=== PATIENT | female | born 1940 | race Caucasian/White ===

== ENCOUNTER → 2020-08-13 13:45 | Outpatient (BNVA) | payer MEDICARE, OTHER, SELFPAY | PROVIDERS: PCP Internal Medicine Endocrinology, Diabetes & Metabolism; Referring Provider Internal Medicine Endocrinology, Diabetes & Metabolism; Visit Provider Internal Medicine Cardiovascular Disease | DX: I48.20 Chronic atrial fibrillation, unspecified (principal); I11.0 Hypertensive heart disease with heart failure; I50.30 Unspecified diastolic (congestive) heart failure; E11.9 Type 2 diabetes mellitus without complications; Z79.82 Long term (current) use of aspirin; Z79.84 Long term (current) use of oral hypoglycemic drugs; Z79.899 Other long term (current) drug therapy | CPT/HCPCS: Q3014 ==

== ENCOUNTER → 2021-02-12 13:30 | Outpatient (BNVA) | payer MEDICARE, OTHER, SELFPAY | PROVIDERS: PCP Internal Medicine Endocrinology, Diabetes & Metabolism; Visit Provider Internal Medicine Cardiovascular Disease | DX: I50.30 Unspecified diastolic (congestive) heart failure (principal); I48.20 Chronic atrial fibrillation, unspecified | CPT/HCPCS: Q3014 ==

== ENCOUNTER 2021-10-01 13:04 | Inpatient (IN) | payer MEDICARE, OTHER, SELFPAY ==
[2021-10-01] VITALS (17 sets, daily range): BP systolic 73–128; BP diastolic 32–106; PULSE 97–152; RESP 18–25; TEMP 36.4–37.3; O2SAT 88–100; BMI 33.0
--- NOTE | ~2021-10-01 | US_ITS ---
EXAMINATION: US ABDOMEN COMPLETE CLINICAL INFORMATION: Hepatosplenomegaly.. COMPARISON: None TECHNIQUE: Real-time imaging of the abdominal viscera. Color Doppler exam used. FINDINGS: Exam limited by body habitus and bowel gas. PANCREAS: Obscured by bowel gas ABDOMINAL AORTA: Obscured by bowel gas INFERIOR VENA CAVA: Obscured by bowel gas LIVER: Liver is not well visualized. No focal abnormality in the visualized portions of the liver. No intrahepatic bile duct dilatation. GALLBLADDER: There is echogenic material without posterior acoustic shadowing layering dependently in the gallbladder. May be sludge versus stones. No gallbladder wall thickening or pericholecystic fluid. Negative ultrasound Londono's sign. COMMON BILE DUCT: Nonvisualized. RIGHT KIDNEY: Not well seen. No gross evidence for hydronephrosis. The kidney measures 10.1 cm in maximum dimension. LEFT KIDNEY: Not well seen. No gross evidence of hydronephrosis. The kidney measures 10.1 cm in maximum dimension. SPLEEN: Normal. The spleen measures 11.6 cm in maximum dimension. FREE FLUID: None. US/US abdomen complete IMPRESSION: 1. Exam limited by body habitus and bowel gas. 2. Sludge versus small gallstones layering dependently in gallbladder. No gallbladder wall thickening or pericholecystic fluid. Negative ultrasound Londono's sign. 3. Liver was not well visualized. 4. Spleen of normal size measuring 11.6 cm.
--- NOTE | ~2021-10-01 | US_ITS ---
EXAMINATION: US VENOUS ULTRASOUND WITH DOPPLER LOWER EXTREMITY, BILATERAL CLINICAL INFORMATION: Swelling and edema COMPARISON: None TECHNIQUE: Ultrasound of the deep veins is performed from the hip to the calf with compression sonography and color and pulse Doppler assessment. Spectral analysis with color-flow imaging is performed. FINDINGS: RIGHT: There is normal venous compression and respiratory variation and augmented flow. The visualized common femoral vein, superficial femoral vein, profunda femoral vein, popliteal vein, and the trifurcation region shows no evidence of deep venous thrombosis. There is no significant popliteal fossa cyst. Examination is limited due to patient mobility and discomfort LEFT: There is normal venous compression and respiratory variation and augmented flow. The visualized common femoral vein, superficial femoral vein, profunda femoral vein, popliteal vein, and the trifurcation region shows no evidence of deep venous thrombosis. Small posterior fossa Mcgregor's cyst measuring 1.8 x 2.1 x 2.0 cm. Separation is limited due to patient inability discomfort. If the patient's symptoms persist, followup ultrasound in 5 days 7 days might be of value to exclude proximal propagation from a non-visualized calf vein. US/US venous duplex LE BI IMPRESSION: No DVT demonstrated in the bilateral lower extremities.
--- NOTE | ~2021-10-01 | US_ITS ---
EXAMINATION: BILATERAL NONVASCULAR LOWER EXTREMITY ULTRASOUND CLINICAL INFORMATION: Bilateral cellulitis, assess for abscess. COMPARISON: None TECHNIQUE: Ultrasound performed at the areas of cellulitis in the right calf and left distal thigh to calf. FINDINGS: There is soft tissue swelling in the areas of clinical concern without abscess formation. US/US extremity nonvascular IMPRESSION: Soft tissue swelling consistent with cellulitis. No abscess.
--- NOTE | ~2021-10-01 | XR_ITS ---
EXAMINATION: XR CHEST CLINICAL INFORMATION: SOB. COMPARISON: Chest 07/28/2018 TECHNIQUE: Frontal view of the chest was obtained. FINDINGS: The lungs are moderately expanded but clear of acute process. The heart size is enlarged with prominent bilateral parahilar vascular/interstitial markings. No pleural effusion seen. No gross bony abnormality. XR/XR chest 1V IMPRESSION: Increased bilateral parahilar markings likely interstitial edema or pneumonitis. Similar findings were seen on previous exam 07/28/2018
--- NOTE | ~2021-10-01 | NM_ITS ---
EXAMINATION: NM LUNG IMAGE PERFUSION CLINICAL INFORMATION: Shortness of breath. COMPARISON: Chest radiograph dated from 10/01/2021. TECHNIQUE: The patient received 4.0 mCi Tc-99m MAA intravenously and a 6-view perfusion study was performed. FINDINGS: No segmental perfusion defects are present. There is homogeneous distribution of activity bilaterally except for a focal anatomic perfusion defect in the lingula, most consistent with an enlarged cardiomediastinal silhouette as identified on prior radiograph. NM/NM pul perfusion IMPRESSION: Very low probability of pulmonary embolism.
--- NOTE | 2021-10-01 13:14 | ECG_ITS ---
Test Reason : TACHYCARDIA Blood Pressure : / mmHG Vent. Rate : 144 BPM Atrial Rate : 000 BPM P-R Int : 000 ms QRS Dur : 068 ms QT Int : 286 ms P-R-T Axes : 000 130 149 degrees QTc Int : 442 ms Atrial fibrillation with rapid ventricular response Left posterior fascicular block Possible Anterior infarct (cited on or before 01-OCT-2021) Abnormal ECG When compared with ECG of 28-JUL-2018 07:22, QRS axis Shifted right Serial changes of Anterior infarct Present Referred By: José Luis Gonzalez Electronically Signed By:ALEXANDRO WILCOX MD
--- NOTE | 2021-10-01 13:14 | ED.EXTPRO ---
HPI - Extremity Problem General Chief complaint: General Medical Stated complaint: AMS,DARYA LEG SWELLING,88%RA Time Seen by Provider: 10/01/21 13:14 Source: patient and EMS Mode of arrival: EMS Limitations: no limitations History of Present Illness HPI Narrative: Patient with history of heart failure with preserved ejection fraction, chronic atrial fibrillation, diabetes mellitus, hypertension for increased leg swelling for last 4 weeks. Patient's family member came home and noticed that she has a weeping bilateral lower extremity open wounds along with erythema of the legs which is going on for at least 4 weeks also noted that patient is slightly more short of breath was saturating 88% on arrival patient does have a chronic atrial fibrillation not on anticoagulation patient refused to take oral anticoagulation and rate is controlled with atenolol and she is on only aspirin followed by transportation economics teacher in our hospital. Patient denies any fever no chills no cough no increased shortness of breath Related Data Home Medications Medication Instructions Recorded Confirmed aspirin 81 mg tablet,delayed 81 mg PO DAILY 08/13/20 10/01/21 release (Adult Low Dose Aspirin) furosemide 20 mg tablet (Lasix) 20 mg PO DAILY 08/13/20 10/01/21 glyburide 5 mg tablet 5 mg PO DAILY 08/13/20 10/01/21 metformin 500 mg tablet 500 mg PO DAILY 08/13/20 10/01/21 atenolol 25 mg tablet 100 mg PO BID tab 02/12/21 10/01/21 Allergies Allergy/AdvReac Type Severity Reaction Status Date / Time acetaminophen [From VICODIN] Allergy Unknown UNKNOWN Verified 10/01/21 15:41 acyclovir [ACYCLOVIR] Allergy Unknown HALLUCINATI Verified 10/01/21 15:41 ONS adhesive tape Allergy Unknown ALL TAPE Verified 10/01/21 15:41 SKIN EROSION amlodipine [From NORVASC] Allergy Unknown PEADAL Verified 10/01/21 15:41 EDEMA fluconazole [From DIFLUCAN] Allergy Unknown RASH/SWELLI Verified 10/01/21 15:41 NG hydralazine [HYDRALAZINE] Allergy Unknown CONFUSION Verified 10/01/21 15:41 hydrochlorothiazide Allergy Unknown UNKNOWN Verified 10/01/21 15:41 [HYDROCHLOROTHIAZIDE] hydrocodone [From VICODIN] Allergy Unknown SWELLING/ED Verified 10/01/21 15:41 CARMINA Iodinated Contrast Media Allergy Unknown ON Verified 10/01/21 15:41 [Iodinated Contrast Media - GLUCOPHAGE IV Dye] lisinopril [LISINOPRIL] Allergy Unknown LEG CRAMPS Verified 10/01/21 15:41 losartan [From COZAAR] Allergy Unknown UNKNOWN Verified 10/01/21 15:41 meperidine [From DEMEROL] Allergy Unknown ITCHING/PRU Verified 10/01/21 15:41 RITIS oxycodone [From PERCOCET] Allergy Unknown HALLUCINAT Verified 10/01/21 15:41 IONS simvastatin [SIMVASTATIN] Allergy Unknown PAIN IN Verified 10/01/21 15:41 FEET+UP LEGS Tetanus Vaccines and Toxoid Allergy Unknown ARMS SWELL Verified 10/01/21 15:41 [Tetanus Vaccines & Toxoid] valsartan [VALSARTAN] Allergy Unknown RINGING IN Verified 10/01/21 15:41 EARS Adhesive Tape Allergy Unknown Unknown Uncoded 10/01/21 15:41 IVP dye Allergy Unknown Unknown Uncoded 10/01/21 15:41 Tetanus Allergy Unknown Unknown Uncoded 10/01/21 15:41 Vicodin Allergy Unknown Unknown Uncoded 10/01/21 15:41 Review of Systems Review of Systems: Yes all other systems are reviewed and are negative [facility] Past Medical History Medical History (HFpEF) heart failure with preserved ejection fraction Chronic atrial fibrillation Diabetes mellitus HTN (hypertension) Family History Family History Father No problems noted. Mother CVD (cardiovascular disease) Social History Social History Alcohol intake: never Smoked in Last 30 Days: No Use of substances other than those prescribed or required for medical reasons: No Advance Directives: No Advance Directives Information Provided: Yes Physical Exam Vital Signs: Vital Signs: Last Vital Signs Temp 99.0 F 10/01/21 21:26 Pulse 97 10/01/21 21:26 Resp 18 10/01/21 21:26 BP 96/43 L 10/01/21 21:26 Pulse Ox 97 10/01/21 21:26 Oxygen Flow Rate 4 10/01/21 13:30 BMI result Body Mass Index 33.0 Appearance: Alert. Oriented X3. No acute distress. Lethargic Eyes: PERRLA, No Nystagmus ENT: Pharynx normal. Oral Mucosa moist Neck: Normal inspection. Neck supple. CVS: Irregularly irregular heart rate tachycardia, Pulses normal. Respiratory: No respiratory distress. Equal air entry bilateral, no wheezing/rales/rhonchi Abdomen: Soft and nontender. Bowel sounds are present, no mass palpable, no CVA tenderness Skin: Skin warm and dry. Normal skin turgor. Erythema of lower extremity below-knee Extremities: Bilateral leg edema with erythema with open wound on the lateral aspect with serous discharge Neuro: Oriented X 3. No motor deficit. No sensory deficit.No cerebellar signs , cranial nerves II-XII intact Course Reevaluation(s) Reevaluation #1: Patient with atrial fibrillation initial blood pressure reading was 77/60 repeat blood pressure reading was 10/23/2074 low blood pressure reading is likely from atrial fibrillation tachycardia is not from sepsis, patient is afebrile with atrial fibrillation with hyperglycemia and hypoperfusion will give IV fluid cautiously IV Cardizem for tachycardia in lower doses start IV Rocephin for cellulitis lower extremity wait for the labs, check POC Time: 13:58 Reevaluation #2: Lab workup showed blood sugar of 646 will give subQ Humalog according to patient was not compliant to her diet during Olga Lidia time takes only metformin will give Humalog lab also shows achy IV creatinine increased to 1.79 with potassium of 5.5 bicarb of 15 and anion gap of 19. Will give 2 L of IV fluid continue Humalog subQ was given Cardizem IV Time: 14:30 Reevaluation #3: Patient's heart rate is less than 100 AFib blood pressure improved to 107/90 patient is more alert and awake received 3 doses of Humalog and Lantus was given, lactic acid slightly elevated 2.8 multifactorial secondary to PARKER along with patient is on metformin also has cellulitis of lower extremity will add vancomycin to cover MRSA also will get venous Doppler to rule out DVT Time: 19:19 MDM - Extremity (Nontraumatic) MDM Narrative Medical decision making narrative: Patient venous Doppler negative for DVT plan to admit for bilateral leg cellulitis with atrial fibrillation with uncontrolled ventricular rate with diabetes mellitus with hyperglycemia with acute renal failure Lab Data Attestation: I reviewed the patient's lab results. Result diagrams: 10/01/21 14:15 10/01/21 20:14 Labs: Lab Results 10/01/21 10/01/21 10/01/21 Range/Units 13:50 14:15 14:15 WBC 19.0 H (4.8-10.8) X10*3/uL RBC 4.62 (4.20-5.50) X10*6/uL Hgb 16.8 H (12.0-16.0) g/dl Hct 48.8 H (37.0-47.0) % MCV 105.6 H (80.0-98.0) fL MCH 36.4 H (27.0-33.0) pg MCHC 34.4 (31.0-35.0) g/dl RDW 13.1 (11.0-16.0) % Plt Count 111 L (160-400) X10*3/uL MPV 12.0 (9.4-12.3) fL Immature Gran % (Auto) 0.8 H (0.0-0.4) % Neut % (Auto) 88.6 H (45-73) % Lymph % (Auto) 3.1 L (20-40) % [place] % (Auto) 7.4 (2-11) % Eos % (Auto) 0.0 (0-4) % Baso % (Auto) 0.1 (0-2) % Lymph # (Auto) 0.6 L (1.2-4.9) X10*3/uL [place] # (Auto) 1.4 H (0.1-1.2) X10*3/uL Eos # (Auto) 0.0 (0.0-0.4) X10*3/uL Baso # (Auto) 0.0 (0.0-0.2) X10*3/uL Abs Immat Gran (auto) 0.15 H (0.00-0.03) X10*3/uL Absolute Neuts (auto) 16.8 H (2.0-8.3) x10*3/uL Absolute Nucleated RBC 0.020 H (0.0-0.012) X10*3/uL Nucleated RBC % (auto) 0.1 (0.0-0.2) /100WBC PT (9.9-13.0) SEC INR (0.9-1.1) APTT (24.1-38.0) SEC Sodium 131 L (135-145) mmol/L Potassium 5.5 H (3.3-5.1) mmol/L Chloride 103 (96-108) mmol/L Carbon Dioxide 15 L (22-29) mmol/L Anion Gap 19 (12-20) BUN 51 H (9-16) mg/dL Creatinine 1.79 H (0.5-1.4) mg/dL Estim Creat Clear Calc 27.3 Estimated GFR 27 POC Glucose (60-115) mg/dL Random Glucose 646 H* (60-115) mg/dL Lactic Acid (0.5-2.0) mmol/L Lactic Acid F/U @ 2Hr (0.5-2.0) mmol/L Calcium 9.9 (8.4-10.2) mg/dL Magnesium 2.1 (1.6-2.6) mg/dL Total Bilirubin 2.0 H (0.0-1.0) mg/dL AST 26 (5-31) U/L ALT 59 H (0-31) U/L Alkaline Phosphatase 63 (39-117) U/L Troponin I High Sens (<3.5-17.0) ng/L B-Natriuretic Peptide (<100) pg/mL Total Protein 5.7 L (6.5-8.0) g/dL Albumin 3.5 (3.5-5.0) g/dL Urine Color Urine Appearance Urine pH (5.0-8.0) Ur Specific [place] (1.005-1.025) Urine Protein (NEG-TRACE) MG/DL Urine Glucose (UA) (NEG) MG/DL Urine Ketones (NEG) MG/DL Urine Blood (NEG) Urine Nitrite (NEG) Ur Leukocyte Esterase (NEG) Urine RBC (0) /HPF Urine WBC (0-4) /HPF Ur Squamous Epith Cells /LPF Urine Bacteria /LPF Acetone, Qual Small H (Negative) COVID-19 (JOSEPH) Negative (Negative) COVID-19 Clin Com See Note 10/01/21 10/01/21 10/01/21 Range/Units 14:15 14:15 14:15 WBC (4.8-10.8) X10*3/uL RBC (4.20-5.50) X10*6/uL Hgb (12.0-16.0) g/dl Hct (37.0-47.0) % MCV (80.0-98.0) fL MCH (27.0-33.0) pg MCHC (31.0-35.0) g/dl RDW (11.0-16.0) % Plt Count (160-400) X10*3/uL MPV (9.4-12.3) fL Immature Gran % (Auto) (0.0-0.4) % Neut % (Auto) (45-73) % Lymph % (Auto) (20-40) % [place] % (Auto) (2-11) % Eos % (Auto) (0-4) % Baso % (Auto) (0-2) % Lymph # (Auto) (1.2-4.9) X10*3/uL [place] # (Auto) (0.1-1.2) X10*3/uL Eos # (Auto) (0.0-0.4) X10*3/uL Baso # (Auto) (0.0-0.2) X10*3/uL Abs Immat Gran (auto) (0.00-0.03) X10*3/uL Absolute Neuts (auto) (2.0-8.3) x10*3/uL Absolute Nucleated RBC (0.0-0.012) X10*3/uL Nucleated RBC % (auto) (0.0-0.2) /100WBC PT 19.4 H (9.9-13.0) SEC INR 1.7 H (0.9-1.1) APTT 30.5 (24.1-38.0) SEC Sodium (135-145) mmol/L Potassium (3.3-5.1) mmol/L Chloride (96-108) mmol/L Carbon Dioxide (22-29) mmol/L Anion Gap (12-20) BUN (9-16) mg/dL Creatinine (0.5-1.4) mg/dL Estim Creat Clear Calc Estimated GFR POC Glucose (60-115) mg/dL Random Glucose (60-115) mg/dL Lactic Acid 2.8 H* (0.5-2.0) mmol/L Lactic Acid F/U @ 2Hr (0.5-2.0) mmol/L Calcium (8.4-10.2) mg/dL Magnesium (1.6-2.6) mg/dL Total Bilirubin (0.0-1.0) mg/dL AST (5-31) U/L ALT (0-31) U/L Alkaline Phosphatase (39-117) U/L Troponin I High Sens 23.1 H (<3.5-17.0) ng/L B-Natriuretic Peptide 1193 H (<100) pg/mL Total Protein (6.5-8.0) g/dL Albumin (3.5-5.0) g/dL Urine Color Urine Appearance Urine pH (5.0-8.0) Ur Specific [place] (1.005-1.025) Urine Protein (NEG-TRACE) MG/DL Urine Glucose (UA) (NEG) MG/DL Urine Ketones (NEG) MG/DL Urine Blood (NEG) Urine Nitrite (NEG) Ur Leukocyte Esterase (NEG) Urine RBC (0) /HPF Urine WBC (0-4) /HPF Ur Squamous Epith Cells /LPF Urine Bacteria /LPF Acetone, Qual (Negative) COVID-19 (JOSEPH) (Negative) COVID-19 Clin Com 10/01/21 10/01/21 10/01/21 Range/Units 14:24 15:44 17:06 WBC (4.8-10.8) X10*3/uL RBC (4.20-5.50) X10*6/uL Hgb (12.0-16.0) g/dl Hct (37.0-47.0) % MCV (80.0-98.0) fL MCH (27.0-33.0) pg MCHC (31.0-35.0) g/dl RDW (11.0-16.0) % Plt Count (160-400) X10*3/uL MPV (9.4-12.3) fL Immature Gran % (Auto) (0.0-0.4) % Neut % (Auto) (45-73) % Lymph % (Auto) (20-40) % [place] % (Auto) (2-11) % Eos % (Auto) (0-4) % Baso % (Auto) (0-2) % Lymph # (Auto) (1.2-4.9) X10*3/uL [place] # (Auto) (0.1-1.2) X10*3/uL Eos # (Auto) (0.0-0.4) X10*3/uL Baso # (Auto) (0.0-0.2) X10*3/uL Abs Immat Gran (auto) (0.00-0.03) X10*3/uL Absolute Neuts (auto) (2.0-8.3) x10*3/uL Absolute Nucleated RBC (0.0-0.012) X10*3/uL Nucleated RBC % (auto) (0.0-0.2) /100WBC PT (9.9-13.0) SEC INR (0.9-1.1) APTT (24.1-38.0) SEC Sodium (135-145) mmol/L Potassium (3.3-5.1) mmol/L Chloride (96-108) mmol/L Carbon Dioxide (22-29) mmol/L Anion Gap (12-20) BUN (9-16) mg/dL Creatinine (0.5-1.4) mg/dL Estim Creat Clear Calc Estimated GFR POC Glucose 566 H* 550 H* 502 H* (60-115) mg/dL Random Glucose (60-115) mg/dL Lactic Acid (0.5-2.0) mmol/L Lactic Acid F/U @ 2Hr (0.5-2.0) mmol/L Calcium (8.4-10.2) mg/dL Magnesium (1.6-2.6) mg/dL Total Bilirubin (0.0-1.0) mg/dL AST (5-31) U/L ALT (0-31) U/L Alkaline Phosphatase (39-117) U/L Troponin I High Sens (<3.5-17.0) ng/L B-Natriuretic Peptide (<100) pg/mL Total Protein (6.5-8.0) g/dL Albumin (3.5-5.0) g/dL Urine Color Urine Appearance Urine pH (5.0-8.0) Ur Specific [place] (1.005-1.025) Urine Protein (NEG-TRACE) MG/DL Urine Glucose (UA) (NEG) MG/DL Urine Ketones (NEG) MG/DL Urine Blood (NEG) Urine Nitrite (NEG) Ur Leukocyte Esterase (NEG) Urine RBC (0) /HPF Urine WBC (0-4) /HPF Ur Squamous Epith Cells /LPF Urine Bacteria /LPF Acetone, Qual (Negative) COVID-19 (JOSEPH) (Negative) COVID-19 Clin Com 10/01/21 10/01/21 10/01/21 Range/Units 17:53 18:11 20:14 WBC (4.8-10.8) X10*3/uL RBC (4.20-5.50) X10*6/uL Hgb (12.0-16.0) g/dl Hct (37.0-47.0) % MCV (80.0-98.0) fL MCH (27.0-33.0) pg MCHC (31.0-35.0) g/dl RDW (11.0-16.0) % Plt Count (160-400) X10*3/uL MPV (9.4-12.3) fL Immature Gran % (Auto) (0.0-0.4) % Neut % (Auto) (45-73) % Lymph % (Auto) (20-40) % [place] % (Auto) (2-11) % Eos % (Auto) (0-4) % Baso % (Auto) (0-2) % Lymph # (Auto) (1.2-4.9) X10*3/uL [place] # (Auto) (0.1-1.2) X10*3/uL Eos # (Auto) (0.0-0.4) X10*3/uL Baso # (Auto) (0.0-0.2) X10*3/uL Abs Immat Gran (auto) (0.00-0.03) X10*3/uL Absolute Neuts (auto) (2.0-8.3) x10*3/uL Absolute Nucleated RBC (0.0-0.012) X10*3/uL Nucleated RBC % (auto) (0.0-0.2) /100WBC PT (9.9-13.0) SEC INR (0.9-1.1) APTT (24.1-38.0) SEC Sodium (135-145) mmol/L Potassium (3.3-5.1) mmol/L Chloride (96-108) mmol/L Carbon Dioxide (22-29) mmol/L Anion Gap (12-20) BUN (9-16) mg/dL Creatinine (0.5-1.4) mg/dL Estim Creat Clear Calc Estimated GFR POC Glucose 414 H* (60-115) mg/dL Random Glucose (60-115) mg/dL Lactic Acid (0.5-2.0) mmol/L Lactic Acid F/U @ 2Hr 4.6 H* (0.5-2.0) mmol/L Calcium (8.4-10.2) mg/dL Magnesium (1.6-2.6) mg/dL Total Bilirubin (0.0-1.0) mg/dL AST (5-31) U/L ALT (0-31) U/L Alkaline Phosphatase (39-117) U/L Troponin I High Sens (<3.5-17.0) ng/L B-Natriuretic Peptide (<100) pg/mL Total Protein (6.5-8.0) g/dL Albumin (3.5-5.0) g/dL Urine Color YELLOW Urine Appearance CLEAR Urine pH 5.5 (5.0-8.0) Ur Specific [place] 1.020 (1.005-1.025) Urine Protein NEG (NEG-TRACE) MG/DL Urine Glucose (UA) >=1000 H (NEG) MG/DL Urine Ketones NEG (NEG) MG/DL Urine Blood TRACE (NEG) Urine Nitrite NEG (NEG) Ur Leukocyte Esterase NEG (NEG) Urine RBC 0-2 (0) /HPF Urine WBC 0-2 (0-4) /HPF Ur Squamous Epith Cells TRACE /LPF Urine Bacteria NONE /LPF Acetone, Qual (Negative) COVID-19 (JOSEPH) (Negative) COVID-19 Clin Com 10/01/21 10/01/21 10/01/21 Range/Units 20:14 20:14 21:26 WBC (4.8-10.8) X10*3/uL RBC (4.20-5.50) X10*6/uL Hgb (12.0-16.0) g/dl Hct (37.0-47.0) % MCV (80.0-98.0) fL MCH (27.0-33.0) pg MCHC (31.0-35.0) g/dl RDW (11.0-16.0) % Plt Count (160-400) X10*3/uL MPV (9.4-12.3) fL Immature Gran % (Auto) (0.0-0.4) % Neut % (Auto) (45-73) % Lymph % (Auto) (20-40) % [place] % (Auto) (2-11) % Eos % (Auto) (0-4) % Baso % (Auto) (0-2) % Lymph # (Auto) (1.2-4.9) X10*3/uL [place] # (Auto) (0.1-1.2) X10*3/uL Eos # (Auto) (0.0-0.4) X10*3/uL Baso # (Auto) (0.0-0.2) X10*3/uL Abs Immat Gran (auto) (0.00-0.03) X10*3/uL Absolute Neuts (auto) (2.0-8.3) x10*3/uL Absolute Nucleated RBC (0.0-0.012) X10*3/uL Nucleated RBC % (auto) (0.0-0.2) /100WBC PT (9.9-13.0) SEC INR (0.9-1.1) APTT (24.1-38.0) SEC Sodium 137 (135-145) mmol/L Potassium 5.0 (3.3-5.1) mmol/L Chloride 102 (96-108) mmol/L Carbon Dioxide 24 (22-29) mmol/L Anion Gap 16 (12-20) BUN 52 H (9-16) mg/dL Creatinine 1.80 H (0.5-1.4) mg/dL Estim Creat Clear Calc 27.2 Estimated GFR 27 POC Glucose 290 H (60-115) mg/dL Random Glucose 366 H* (60-115) mg/dL Lactic Acid Cancelled (0.5-2.0) mmol/L Lactic Acid F/U @ 2Hr (0.5-2.0) mmol/L Calcium 10.0 (8.4-10.2) mg/dL Magnesium (1.6-2.6) mg/dL Total Bilirubin (0.0-1.0) mg/dL AST (5-31) U/L ALT (0-31) U/L Alkaline Phosphatase (39-117) U/L Troponin I High Sens (<3.5-17.0) ng/L B-Natriuretic Peptide (<100) pg/mL Total Protein (6.5-8.0) g/dL Albumin (3.5-5.0) g/dL Urine Color Urine Appearance Urine pH (5.0-8.0) Ur Specific [place] (1.005-1.025) Urine Protein (NEG-TRACE) MG/DL Urine Glucose (UA) (NEG) MG/DL Urine Ketones (NEG) MG/DL Urine Blood (NEG) Urine Nitrite (NEG) Ur Leukocyte Esterase (NEG) Urine RBC (0) /HPF Urine WBC (0-4) /HPF Ur Squamous Epith Cells /LPF Urine Bacteria /LPF Acetone, Qual (Negative) COVID-19 (JOSEPH) (Negative) COVID-19 Clin Com Critical Care Time Critical Care Time Critical Care Time: Yes Total Critical Care Time: 70 Attestation: I spent 70 minutes of critical care, with interventions, assessments, speaking to patient, consultants Discharge Plan Discharge Clinical Impression: Atrial fibrillation with rapid ventricular response, Bilateral lower leg cellulitis Hyperglycemia due to type 2 diabetes mellitus Qualifiers: Diabetes mellitus prison insulin use: without terminal gauger use Qualified Code(s): E11.65 - Type 2 diabetes mellitus with hyperglycemia Acute renal failure Qualifiers: Acute renal failure type: unspecified Qualified Code(s): N17.9 - Acute kidney failure, unspecified Patient Disposition: Admitted As Inpatient
[2021-10-01] MEDS: 0.9 % Sodium Chloride 1,000 ML 999 ML IV ×2 (13:45→18:07)
[2021-10-01 14:25] LABS: MANUAL DIFF FLAG NO
[2021-10-01 14:25] LABS: COVID-19 Test Negative (Negative)
[2021-10-01 14:28] LABS: Glucose, Whole Blood 566 mg/dL (60-115)
[2021-10-01 14:30] LABS: Basophils Percent Auto 0.1 % (0-2); Hematocrit 48.8 % (37.0-47.0); Hemoglobin 16.8 g/dl (12.0-16.0); Imm Gran Abs Auto 0.15 X10*3/uL (0.00-0.03); Imm Gran Pct Auto 0.8 % (0.0-0.4); Lymphocytes Absolute Auto 0.6 X10*3/uL (1.2-4.9); Lymphocytes Percent Auto 3.1 % (20-40); Mean Corpuscular HGB Conc 34.4 g/dl (31.0-35.0); Mean Corpuscular Hemoglobin 36.4 pg (27.0-33.0); Mean Corpuscular Volume 105.6 fL (80.0-98.0); Monocytes Absolute Auto 1.4 X10*3/uL (0.1-1.2); Monocytes Percent Auto 7.4 % (2-11); NRBC Pct Auto 0.1 /100WBC (0.0-0.2); Neutrophils Absolute Auto 16.8 x10*3/uL (2.0-8.3); Neutrophils Percent Auto 88.6 % (45-73); Platelet Count 111 X10*3/uL (160-400); Red Blood Count 4.62 X10*6/uL (4.20-5.50); Red Cell Distribution Width 13.1 % (11.0-16.0)
[2021-10-01 14:35] LABS: INTERNATIONAL NORM RATIO 1.7 (0.9-1.1); Prothrombin Time 19.4 SEC (9.9-13.0)
[2021-10-01] MEDS: dilTIAZem HCL 50 MG/10 ML VIAL 10 MG IVPUSH (14:35)
[2021-10-01 14:37] LABS: Partial Thromboplastin Time 30.5 SEC (24.1-38.0)
[2021-10-01 14:43] LABS: Lactic Acid 2.8 mmol/L (0.5-2.0)
[2021-10-01] MEDS: Insulin Lispro 100 UNIT/ML 3 ML VIAL 14 UNIT SUBCUT ×2 (14:45→18:07)
[2021-10-01] MEDS: cefTRIAXone sodium 1 GM in 0.9 % Sodium Chloride 50 ML IV (14:45)
[2021-10-01 14:46] LABS: B Type Natriuretic Peptide 1193 pg/mL (<100); Troponin-I High Sensitivity 23.1 ng/L (<3.5-17.0)
--- NOTE | 2021-10-01 14:51 | PC.NURSE ---
alert. sob at rest. pitting edema into lower abd. weaping red wounds shins to feet. feet elevated with pillows.
[2021-10-01 14:55] LABS: Alanine Aminotransferase 59 U/L (0-31); Albumin Level 3.5 g/dL (3.5-5.0); Alkaline Phosphatase 63 U/L (39-117); Anion Gap 19 (12-20); Aspartate Amino Transferase 26 U/L (5-31); Blood Urea Nitrogen 51 mg/dL (9-16); Calcium 9.9 mg/dL (8.4-10.2); Carbon Dioxide 15 mmol/L (22-29); Chloride 103 mmol/L (96-108); Creatinine Clr Calc Pharmacy 27.3; Estimated Glomerular Filt Rate 27; Glucose Random 646 mg/dL (60-115); Magnesium 2.1 mg/dL (1.6-2.6); Potassium 5.5 mmol/L (3.3-5.1); Sodium 131 mmol/L (135-145); Total Protein 5.7 g/dL (6.5-8.0)
[2021-10-01 15:47] LABS: Glucose, Whole Blood 550 mg/dL (60-115)
[2021-10-01 16:21] LABS: Reflex Lactate? Lactic Acid Added
--- NOTE | 2021-10-01 16:44 | PC.NURSE ---
updates to family. further updates to jose r, rosalia. [phone]
[2021-10-01 17:10] LABS: Glucose, Whole Blood 502 mg/dL (60-115)
[2021-10-01 17:18] LABS: Acetone, serum QL Small (Negative)
[2021-10-01 18:09] LABS: Appearance Urine CLEAR; Color Urine YELLOW; Glucose Urine UA >=1000 MG/DL (NEG); Leukocyte Esterase Urine NEG (NEG); Nitrite Urine NEG (NEG); PH 5.5 (5.0-8.0); UACC Culture Trigger NO; Urine Blood TRACE (NEG); Urine Ketones NEG (NEG); Urine Protein NEG (NEG-TRACE)
[2021-10-01 18:15] LABS: Glucose, Whole Blood 414 mg/dL (60-115)
[2021-10-01 19:32] LABS: RBC Urine 0-2 /HPF (0); Squamous Epithelial Cell Urine TRACE /LPF; WBC Urine 0-2 /HPF (0-4)
--- NOTE | 2021-10-01 19:42 | PHA.MEDREC ---
Pharmacy Consult ? Medication Reconciliation Pharmacy has completed the medication reconciliation.
[2021-10-01] MEDS: vancomycin HCL 1,000 MG in 0.9 % Sodium Chloride 250 ML 270 MG IV (19:49)
[2021-10-01] MEDS: Insulin Lispro 100 UNIT/ML 3 ML VIAL 10 UNIT SUBCUT (19:49)
[2021-10-01] MEDS: Insulin Glargine,Hum.rec.anlog 100 UNIT/ML 10 ML VIAL 20 UNIT SUBCUT (19:50)
--- NOTE | 2021-10-01 20:04 | PC.NURSE ---
Pt continues to be tachiardic and tachipnic while at rest in bed. tolerated ultrasound but is unable to put HOB below 45%. removed O2. remains in a fib on monitor. awaits admission. had water and sml episode of couging per tech. states she drinks milk at home but is not prescribed special diet.
[2021-10-01 20:48] LABS: Anion Gap 16 (12-20); Blood Urea Nitrogen 52 mg/dL (9-16); Carbon Dioxide 24 mmol/L (22-29); Chloride 102 mmol/L (96-108); Creatinine Clr Calc Pharmacy 27.2; Estimated Glomerular Filt Rate 27; Glucose Random 366 mg/dL (60-115); Sodium 137 mmol/L (135-145)
[2021-10-01 20:49] LABS: ~Lactic Acid-LAB USE ONLY 4.6 mmol/L (0.5-2.0)
--- NOTE | 2021-10-01 20:50 | PC.NURSE ---
this rn received critical glucose and lactic from lab, made anwer aware.
--- NOTE | 2021-10-01 21:17 | PC.NURSE ---
this rn verified with dr escalante that this rn should medicated with 5mg metoprolol IV as this rn expressed concerned d/t low bps and afib maintained in 110s. ava instructs this rn to medicate as per orders.
[2021-10-01] MEDS: Metoprolol Tartrate 5 MG/5 ML VIAL IVPUSH (21:18)
[2021-10-01 21:32] LABS: Glucose, Whole Blood 290 mg/dL (60-115)
[2021-10-01 22:17] LABS: Reflex Lactate? 2 Y
--- NOTE | 2021-10-01 22:40 | PM.IMHP ---
History of Present Illness Date of Service: 10/01/21 Chief Complaint: Bilateral legs pain and swelling 81-year-old female with a past medical history of hypertension, diabetes, diastolic CHF, chronic AFib-not on anticoagulation, chronic lymphedema; presented to the hospital today with a chief complaint of bilateral leg swelling and pain. Patient reports that she has has been noticing increased pain and swelling in her legs for the past few weeks; also complains of shortness of breath and dyspnea on exertion. Denies any cough or fevers. Mentioned that she takes Lasix at home. Denies any nausea vomiting or diarrhea. Patient reports that she has been not compliant with her low-salt diet at home. Denies any chest pain or palpitations. Denies any numbness tingling or focal weakness. Denies any falls. Denies any urinary symptoms. Review of all other systems is negative except mentioned above ER course: Per ER team patient noted to have bilateral leg swelling concerning for cellulitis-given IV antibiotics; patient also noted to have atrial fibrillation with rapid ventricular response; given IV metoprolol. On labs patient had elevated fingerstick glucose but no evidence of DKA; received insulin. Mild hyperkalemia-improved; patient also noted to have renal insufficiency with creatinine of 1.7. Also noted elevated proBNP on given Lasix x1. Admitted for further management. [facility] Medical History (HFpEF) heart failure with preserved ejection fraction Chronic atrial fibrillation Diabetes mellitus HTN (hypertension) Family History Father No problems noted. Mother CVD (cardiovascular disease) Social History Alcohol intake: never Smoked in Last 30 Days: No Use of substances other than those prescribed or required for medical reasons: No Advance Directives: No Advance Directives Information Provided: Yes Meds Allergies Allergy/AdvReac Type Severity Reaction Status Date / Time acetaminophen [From VICODIN] Allergy Unknown UNKNOWN Verified 10/01/21 15:41 acyclovir [ACYCLOVIR] Allergy Unknown HALLUCINATI Verified 10/01/21 15:41 ONS adhesive tape Allergy Unknown ALL TAPE Verified 10/01/21 15:41 SKIN EROSION amlodipine [From NORVASC] Allergy Unknown PEADAL Verified 10/01/21 15:41 EDEMA fluconazole [From DIFLUCAN] Allergy Unknown RASH/SWELLI Verified 10/01/21 15:41 NG hydralazine [HYDRALAZINE] Allergy Unknown CONFUSION Verified 10/01/21 15:41 hydrochlorothiazide Allergy Unknown UNKNOWN Verified 10/01/21 15:41 [HYDROCHLOROTHIAZIDE] hydrocodone [From VICODIN] Allergy Unknown SWELLING/ED Verified 10/01/21 15:41 CARMINA Iodinated Contrast Media Allergy Unknown ON Verified 10/01/21 15:41 [Iodinated Contrast Media - GLUCOPHAGE IV Dye] lisinopril [LISINOPRIL] Allergy Unknown LEG CRAMPS Verified 10/01/21 15:41 losartan [From COZAAR] Allergy Unknown UNKNOWN Verified 10/01/21 15:41 meperidine [From DEMEROL] Allergy Unknown ITCHING/PRU Verified 10/01/21 15:41 RITIS oxycodone [From PERCOCET] Allergy Unknown HALLUCINAT Verified 10/01/21 15:41 IONS simvastatin [SIMVASTATIN] Allergy Unknown PAIN IN Verified 10/01/21 15:41 FEET+UP LEGS Tetanus Vaccines and Toxoid Allergy Unknown ARMS SWELL Verified 10/01/21 15:41 [Tetanus Vaccines & Toxoid] valsartan [VALSARTAN] Allergy Unknown RINGING IN Verified 10/01/21 15:41 EARS Adhesive Tape Allergy Unknown Unknown Uncoded 10/01/21 15:41 IVP dye Allergy Unknown Unknown Uncoded 10/01/21 15:41 Tetanus Allergy Unknown Unknown Uncoded 10/01/21 15:41 Vicodin Allergy Unknown Unknown Uncoded 10/01/21 15:41 Active Medications: Current Medications Aspirin (Aspirin Enteric Coated 81 Mg Tablet.Dr) 81 mg PO DAILY RONALDO Atenolol (Atenolol 100 Mg Tablet) 100 mg PO BID RONALDO; Protocol Dextrose (Dextrose 50 % 25 Gm/50 Ml Vial) 25 gm IVPUSH Q15M PRN; Protocol PRN Reason: per Hypoglycemia Standing Ord. Enoxaparin Sodium (Enoxaparin Sodium 40 Mg/0.4 Ml Syringe) 40 mg SUBCUT Q24H RONALDO Furosemide (Furosemide 20 Mg Tablet) 20 mg PO DAILY RONALDO; Protocol Glucose (Glucose Gel 15 Gm Gel..Gram.) 15 gm PO Q15M PRN; Protocol PRN Reason: per Hypoglycemia Standing Ord. Vancomycin HCl 1,000 mg/ (Sodium Chloride) 270 mls @ 270 mls/hr IV Q24H [facility] Cefepime HCl 1 gm/ Sodium (Chloride) 50 mls @ 100 mls/hr IV Q12H [facility] Sodium Chloride (Ns) 1,000 mls @ 50 mls/hr IVCONT .Q20H [facility] Sodium Chloride (Ns) 500 mls @ 500 mls/hr IV .Q1H [facility] Stop: 10/01/21 23:44 Insulin Glargine (Insulin Glargine,Hum.Rec.Anlog 100 Unit/Ml 10 Ml Vial) 10 unit SUBCUT BEDTIME RONALDO Insulin Human Lispro (Insulin Lispro 100 Unit/Ml 3 Ml Vial) 0 unit SUBCUT QIDACHS [facility]; Protocol Melatonin (Melatonin 3 Mg Tablet) 6 mg PO BEDTIME PRN PRN Reason: Insomnia Pharmacy Consult (Consult Rx Perform Med Rec) 1 each MISCELLANE ONCE PRN PRN Reason: Consult order Pharmacy Consult (Consult Rx Vancomycin Dosing) 1 each MISCELLANE DAILY PRN PRN Reason: Consult order Senna (Sennosides 8.6 Mg Tablet) 17.2 mg PO BEDTIME PRN PRN Reason: Constipation Sodium Chloride (0.9 % Sodium Chloride Flush 3 Ml Syringe) 3 ml IVFLUSH QSHIFT [facility] Home Medications Medication Instructions Recorded Confirmed Last Taken Type aspirin 81 mg tablet,delayed 81 mg PO DAILY 08/13/20 10/01/21 Unknown History release (Adult Low Dose Aspirin) furosemide 20 mg tablet (Lasix) 20 mg PO DAILY 08/13/20 10/01/21 Unknown History glyburide 5 mg tablet 5 mg PO DAILY 08/13/20 10/01/21 Unknown History metformin 500 mg tablet 500 mg PO DAILY 08/13/20 10/01/21 Unknown History atenolol 25 mg tablet 100 mg PO BID tab 02/12/21 10/01/21 Unknown History Physical Exam Vital Signs and Narrative: Vital Signs: Last Vital Signs Temp 99.0 F 10/01/21 21:26 Pulse 97 10/01/21 21:26 Resp 18 10/01/21 21:26 BP 96/43 L 10/01/21 21:26 Pulse Ox 97 10/01/21 21:26 Oxygen Flow Rate 4 10/01/21 13:30 BMI result Body Mass Index 33.0 Gen: Appears be in no acute distress HEENT: NCAT, Moist mucosa. Pulmonary: Bilateral crackles present CVS: Normal S1-S2 Abdomen: BS+, Soft, Nontender Extremities: Warm well perfused; bilateral legs are swollen, warm, tender, serosanguineous discharge noted Neuro: Alert and awake. Results Labs CBC and Chem 7: 10/02/21 03:33 10/02/21 03:33 Labs: Laboratory Results - last 24 hr 10/01/21 10/01/21 10/01/21 13:50 14:15 14:15 MCV 105.6 H MCH 36.4 H MCHC 34.4 RDW 13.1 Plt Count 111 L MPV 12.0 Immature Gran % (Auto) 0.8 H Neut % (Auto) 88.6 H Lymph % (Auto) 3.1 L [place] % (Auto) 7.4 Eos % (Auto) 0.0 Baso % (Auto) 0.1 Lymph # (Auto) 0.6 L [place] # (Auto) 1.4 H Eos # (Auto) 0.0 Baso # (Auto) 0.0 Abs Immat Gran (auto) 0.15 H Absolute Neuts (auto) 16.8 H Absolute Nucleated RBC 0.020 H Nucleated RBC % (auto) 0.1 PT INR APTT Anion Gap 19 Estim Creat Clear Calc 27.3 Estimated GFR 27 POC Glucose Random Glucose 646 H* Lactic Acid Lactic Acid F/U @ 2Hr Calcium 9.9 Magnesium 2.1 Total Bilirubin 2.0 H AST 26 ALT 59 H Alkaline Phosphatase 63 Troponin I High Sens B-Natriuretic Peptide Total Protein 5.7 L Albumin 3.5 Urine Color Urine Appearance Urine pH Ur Specific [place] Urine Protein Urine Glucose (UA) Urine Ketones Urine Blood Urine Nitrite Ur Leukocyte Esterase Urine RBC Urine WBC Ur Squamous Epith Cells Urine Bacteria Acetone, Qual Small H COVID-19 (JOSEPH) Negative COVID-19 Clin Com See Note 10/01/21 10/01/21 10/01/21 14:15 14:15 14:15 MCV MCH MCHC RDW Plt Count MPV Immature Gran % (Auto) Neut % (Auto) Lymph % (Auto) [place] % (Auto) Eos % (Auto) Baso % (Auto) Lymph # (Auto) [place] # (Auto) Eos # (Auto) Baso # (Auto) Abs Immat Gran (auto) Absolute Neuts (auto) Absolute Nucleated RBC Nucleated RBC % (auto) PT 19.4 H INR 1.7 H APTT 30.5 Anion Gap Estim Creat Clear Calc Estimated GFR POC Glucose Random Glucose Lactic Acid 2.8 H* Lactic Acid F/U @ 2Hr Calcium Magnesium Total Bilirubin AST ALT Alkaline Phosphatase Troponin I High Sens 23.1 H B-Natriuretic Peptide 1193 H Total Protein Albumin Urine Color Urine Appearance Urine pH Ur Specific [place] Urine Protein Urine Glucose (UA) Urine Ketones Urine Blood Urine Nitrite Ur Leukocyte Esterase Urine RBC Urine WBC Ur Squamous Epith Cells Urine Bacteria Acetone, Qual COVID-19 (JOSEPH) COVID-19 [employer] Com 10/01/21 10/01/21 10/01/21 14:24 15:44 17:06 MCV MCH MCHC RDW Plt Count MPV Immature Gran % (Auto) Neut % (Auto) Lymph % (Auto) [place] % (Auto) Eos % (Auto) Baso % (Auto) Lymph # (Auto) [place] # (Auto) Eos # (Auto) Baso # (Auto) Abs Immat Gran (auto) Absolute Neuts (auto) Absolute Nucleated RBC Nucleated RBC % (auto) PT INR APTT Anion Gap Estim Creat Clear Calc Estimated GFR POC Glucose 566 H* 550 H* 502 H* Random Glucose Lactic Acid Lactic Acid F/U @ 2Hr Calcium Magnesium Total Bilirubin AST ALT Alkaline Phosphatase Troponin I High Sens B-Natriuretic Peptide Total Protein Albumin Urine Color Urine Appearance Urine pH Ur Specific [place] Urine Protein Urine Glucose (UA) Urine Ketones Urine Blood Urine Nitrite Ur Leukocyte Esterase Urine RBC Urine WBC Ur Squamous Epith Cells Urine Bacteria Acetone, Qual COVID-19 (JOSEPH) COVID-19 [employer] 10/01/21 10/01/21 10/01/21 17:53 18:11 20:14 MCV MCH MCHC RDW Plt Count MPV Immature Gran % (Auto) Neut % (Auto) Lymph % (Auto) [place] % (Auto) Eos % (Auto) Baso % (Auto) Lymph # (Auto) [place] # (Auto) Eos # (Auto) Baso # (Auto) Abs Immat Gran (auto) Absolute Neuts (auto) Absolute Nucleated RBC Nucleated RBC % (auto) PT INR APTT Anion Gap Estim Creat Clear Calc Estimated GFR POC Glucose 414 H* Random Glucose Lactic Acid Lactic Acid F/U @ 2Hr 4.6 H* Calcium Magnesium Total Bilirubin AST ALT Alkaline Phosphatase Troponin I High Sens B-Natriuretic Peptide Total Protein Albumin Urine Color YELLOW Urine Appearance CLEAR Urine pH 5.5 Ur Specific [place] 1.020 Urine Protein NEG Urine Glucose (UA) >=1000 H Urine Ketones NEG Urine Blood TRACE Urine Nitrite NEG Ur Leukocyte Esterase NEG Urine RBC 0-2 Urine WBC 0-2 Ur Squamous Epith Cells TRACE Urine Bacteria NONE Acetone, Qual COVID-19 (JOSEPH) COVID-19 Clin Com 10/01/21 10/01/21 10/01/21 20:14 20:14 21:26 MCV MCH MCHC RDW Plt Count MPV Immature Gran % (Auto) Neut % (Auto) Lymph % (Auto) [place] % (Auto) Eos % (Auto) Baso % (Auto) Lymph # (Auto) [place] # (Auto) Eos # (Auto) Baso # (Auto) Abs Immat Gran (auto) Absolute Neuts (auto) Absolute Nucleated RBC Nucleated RBC % (auto) PT INR APTT Anion Gap 16 Estim Creat Clear Calc 27.2 Estimated GFR 27 POC Glucose 290 H Random Glucose 366 H* Lactic Acid Cancelled Lactic Acid F/U @ 2Hr Calcium 10.0 Magnesium Total Bilirubin AST ALT Alkaline Phosphatase Troponin I High Sens B-Natriuretic Peptide Total Protein Albumin Urine Color Urine Appearance Urine pH Ur Specific [place] Urine Protein Urine Glucose (UA) Urine Ketones Urine Blood Urine Nitrite Ur Leukocyte Esterase Urine RBC Urine WBC Ur Squamous Epith Cells Urine Bacteria Acetone, Qual COVID-19 (JOSEPH) COVID-19 Clin Com Imaging Radiologist's Impressions: Impressions Chest X-Ray 10/01/21 13:24 IMPRESSION: Increased bilateral parahilar markings likely interstitial edema or pneumonitis. Similar findings were seen on previous exam 07/28/2018 Venous Duplex 10/01/21 19:44 IMPRESSION: No DVT demonstrated in the bilateral lower extremities. Assessment and Plan (1) Atrial fibrillation with rapid ventricular response: Status: Acute (2) Hyperglycemia due to type 2 diabetes mellitus: Qualifiers: Diabetes mellitus termite technician insulin use: without termite technician use Qualified Code(s): E11.65 - Type 2 diabetes mellitus with hyperglycemia Status: Acute (3) Acute renal failure: Qualifiers: Acute renal failure type: unspecified Qualified Code(s): N17.9 - Acute kidney failure, unspecified Status: Acute (4) Bilateral lower leg cellulitis: Status: Acute (5) (HFpEF) heart failure with preserved ejection fraction: Status: Acute 81-year-old female with a past medical history of hypertension, diabetes, diastolic CHF, chronic AFib-not on anticoagulation, chronic lymphedema; presented to the hospital today with a chief complaint of bilateral leg swelling and pain. Noted to have following conditions AFib with rapid ventricular response: Patient heart rate on presentation is in 150s. Given IV metoprolol. Improving. Current heart rate is 97. Continue home mental all. Patient not on anticoagulation at home-patient refused. In Acute on chronic diastolic CHF: Noted to have congestion/pneumonitis on the chest x-ray. Patient has bilateral leg swelling. Also mentions dietary noncompliance. Noted Elevated proBNP. Received IV Lasix x1. Daily weights and I's and O's Echocardiogram Cardiology consult Patient has renal insufficiency-will resume diuresis based on renal function tomorrow morning. PARKER: Patient baseline creatinine is 1.1. On presentation creatinine is 1.7. Avoid nephrotoxins. Question cardiorenal. Patient received Lasix in the ER. Will continue to monitor renal function. Bilateral leg lymphedema/cellulitis: Patient on broad-spectrum antibiotics IV vancomycin and cefepime. Pharmacy to renally dose the antibiotics and home medications. Venous duplex negative for DVT. Will obtain nonvascular ultrasound to rule out abscess pockets ID consult Diabetes/hyperglycemia: Currently not in DKA. Patient mentions she has not been complaint with her diet over the holidays. DVT prophylaxis: Lovenox Code status: DNI/DNI Quality Stroke Does the patient have a stroke diagnosis?: No VTE Prior VTE?: No VTE Risk Level:: Medical - moderate - high VTE Device Contraindication: Treatment Not Indicated VTE Drug Contraindication: N/A - Med Ordered
--- NOTE | 2021-10-01 22:55 | PHA.PROG ---
Admission Date/Time: Indication: Weight in k kg Serum Creatinine - Last 168 Hours 10/01/21 10/01/21 14:15 20:14 Creatinine 1.79 H 1.80 H Estimated CrCl and GFR - Last 168 Hours 10/01/21 10/01/21 14:15 20:14 Estim Creat Clear Calc 27.3 27.2 Estimated GFR 27 27 Vancomycin Loading Dose: 1250 Current Vancomycin Dosing Regimen: 750 Vancomycin Monitoring using AUC goal of 400 - 600 range with trough as surrogate marker: 430 Date and Time for next Vancomycin Level to be drawn: 10/04 2099 Pharmacist Comments on Vancomycin Plan: Vancomycin dosing will take advantage of [employer] as a clinical decision support tool that uses Bayesian modeling to calculate individual patient's pharmacokinetic parameters and forecast the patient's drug concentration time course with the target goal AUC 24 range of 400 - 600 mg/L/hr.
[2021-10-01 23:15] LABS: ~Lactic Acid-LAB USE ONLY 4.8 mmol/L (0.5-2.0)
[2021-10-01] MEDS: 0.9 % Sodium Chloride 500 ML IV (23:33)
[2021-10-01] MEDS: cefEPime HCl 1 GM in 0.9 % Sodium Chloride 50 ML IV (23:33)
[2021-10-01] MEDS: 0.9 % Sodium Chloride 1,000 ML 50 ML IVCONT (23:54)
--- NOTE | 2021-10-01 23:57 | PC.NURSE ---
MD Cote called to be made aware of patient heart rate 150's, per MD orders give PRN Lopressor IV push, MD aware BP is 109/60. Per MD orders hold vanco dosing for tonight based on previous dose.
[2021-10-02] VITALS (23 sets, daily range): BP systolic 92–144; BP diastolic 39–85; PULSE 55–151; RESP 16–22; TEMP 36.5–37.3; O2SAT 92–99
[2021-10-02] MEDS: Metoprolol Tartrate 5 MG/5 ML VIAL IVPUSH ×2 (00:03→01:57)
[2021-10-02 00:18] LABS: Troponin-I High Sensitivity 63.7 ng/L (<3.5-17.0)
--- NOTE | 2021-10-02 01:53 | PC.NURSE ---
kristofer aware of vs
--- NOTE | 2021-10-02 01:54 | PC.NURSE ---
per mendy miner to give metoprolol iv despite q6h prn order
[2021-10-02] MEDS: 0.9 % Sodium Chloride 500 ML 250 ML IV (02:00)
--- NOTE | 2021-10-02 02:57 | PC.NURSE ---
this rn to bedside to medicate with metoprolol iv as documented/ordered, found pt had removed PIV from R hand. This rn attempted to place PIV for pt, unsuccessful dr bassett to bedside, attempted US PIV, successful pt medicated as charted. pt remains tachycardiac afib 150s, kristofer aware. pt repositioned in bed, inc care provided, legs dressed with nonadhesive dressings as legs were severely weeping
--- NOTE | 2021-10-02 03:04 | PC.NURSE ---
Dr Laguerre aware of pt's persistent tachycardiac, to order diltiazem 10mg push
[2021-10-02] MEDS: dilTIAZem HCL 50 MG/10 ML VIAL 10 MG IVPUSH (03:07)
--- NOTE | 2021-10-02 03:36 | PC.NURSE ---
Dr Laguerre made aware of pt's positive response to diltiazem push as evidenced by improved HR and BP. This RN to now medicated with overdue lovenox as lovenox just arrived to dept. Pt stretcher in low locked position, rails raised, call stewart within reach.
[2021-10-02] MEDS: Enoxaparin Sodium 40 MG/0.4 ML SYRINGE SUBCUT (03:38)
[2021-10-02 03:45] LABS: Basophils Percent Auto 0.1 % (0-2); Hematocrit 51.3 % (37.0-47.0); Hemoglobin 17.2 g/dl (12.0-16.0); Imm Gran Abs Auto 0.16 X10*3/uL (0.00-0.03); Imm Gran Pct Auto 0.9 % (0.0-0.4); Lymphocytes Absolute Auto 1.2 X10*3/uL (1.2-4.9); Lymphocytes Percent Auto 6.4 % (20-40); MANUAL DIFF FLAG SCAN; Mean Corpuscular HGB Conc 33.5 g/dl (31.0-35.0); Mean Corpuscular Hemoglobin 36.6 pg (27.0-33.0); Mean Corpuscular Volume 109.1 fL (80.0-98.0); Mean Platelet Volume 11.5 fL (9.4-12.3); Monocytes Absolute Auto 1.6 X10*3/uL (0.1-1.2); NRBC Pct Auto 0.1 /100WBC (0.0-0.2); Neutrophils Percent Auto 83.6 % (45-73); Platelet Count 118 X10*3/uL (160-400); Red Cell Distribution Width 13.1 % (11.0-16.0); SCAN SMEAR FLAG 1
[2021-10-02 03:55] LABS: Anion Gap 16 (12-20); Blood Urea Nitrogen 51 mg/dL (9-16); Carbon Dioxide 22 mmol/L (22-29); Chloride 104 mmol/L (96-108); Creatinine Clr Calc Pharmacy 31.5; Estimated Glomerular Filt Rate 32; Glucose Random 162 mg/dL (60-115); Potassium 4.9 mmol/L (3.3-5.1); Sodium 137 mmol/L (135-145)
[2021-10-02 03:56] LABS: SLIDE REVIEW VERIFIED
--- NOTE | 2021-10-02 08:33 | PC.NURSE ---
verbal order to give .25mg digoxin, maanual bp 98/55 hr 140-155. awake denies sob, no pain, dr rincon at bedside,
[2021-10-02 08:44] LABS: Troponin-I High Sensitivity 46.4 ng/L (<3.5-17.0)
--- NOTE | 2021-10-02 10:30 | PC.NURSE ---
almeida at bedside, states to hold lasix/asa at this time to give minedrin 10mg po, dr allison aware of the request
--- NOTE | 2021-10-02 10:32 | P.PNIM_ITS ---
Subjective Subjective Date of Service: 10/03/21 Interval History: Seen in f/u for septic shock, AFIB with RVR. Patient c/o pain in buttock area, BP is difficult to obtain but mentating, HR remains high despite IV meds including cardizem and dig. IVF been given for hypotension. She is on broad spec Abx for sepsis presumed to be from infected leg ulcers. Review of Systems no fever, c/o buttocks pain Physical Exam Vital Signs: Vital Signs: Last Vital Signs Temp 98.1 F 10/02/21 08:04 Pulse 145 H 10/02/21 10:24 Resp 22 H 10/02/21 10:24 BP 92/51 L 10/02/21 10:24 Pulse Ox 96 10/02/21 10:24 Oxygen Flow Rate 4 10/01/21 13:30 BMI result Body Mass Index 33.0 Const: Other: General: AO X 3, feels uncomfortable. Resp: CTA bilateral CVS: iregular iregule GI: +BS, NT, no distention Skin: extensive ulceraton Neuro: motor grossly Psych: appropriate affect Objective Data Active Medications Aspirin (Aspirin Enteric Coated 81 Mg Tablet.) 81 mg PO DAILY [facility] Dextrose (Dextrose 50 % 25 Gm/50 Ml Vial) 25 gm IVPUSH Q15M PRN; Protocol PRN Reason: per Hypoglycemia Standing Ord. Enoxaparin Sodium (Enoxaparin Sodium 40 Mg/0.4 Ml Syringe) 40 mg SUBCUT Q24H RONALDO Furosemide (Furosemide 20 Mg Tablet) 20 mg PO DAILY RONALDO; Protocol Glucose (Glucose Gel 15 Gm Gel..Gram.) 15 gm PO Q15M PRN; Protocol PRN Reason: per Hypoglycemia Standing Ord. Cefepime HCl 1 gm/ Sodium (Chloride) 50 mls @ 100 mls/hr IV Q12H [facility] Last Infusion: 10/02/21 00:06 Dose: 0 mls/hr Documented by: PORSCHE Sodium Chloride (Ns) 1,000 mls @ 50 mls/hr IVCONT .Q20H RONALDO Last Admin: 10/01/21 23:54 Dose: 50 mls/hr Documented by: PORSCHE Vancomycin HCl 750 mg/ Sodium (Chloride) 265 mls @ 265 mls/hr IV Q24H [facility] Insulin Glargine (Insulin Glargine,Hum.Rec.Anlog 100 Unit/Ml 10 Ml Vial) 10 unit SUBCUT BEDTIME [facility] Insulin Human Lispro (Insulin Lispro 100 Unit/Ml 3 Ml Vial) 0 unit SUBCUT Q IDACHS [facility]; Protocol Melatonin (Melatonin 3 Mg Tablet) 6 mg PO BEDTIME PRN PRN Reason: Insomnia Metoprolol Tartrate (Metoprolol Tartrate 5 Mg/5 Ml Vial) 5 mg IVPUSH Q6H PRN PRN Reason: HR>125 Last Admin: 10/02/21 01:57 Dose: 5 mg Documented by: HUY Pharmacy Consult (Consult Rx Perform Med Rec) 1 each MISCELLANE ONCE PRN PRN Reason: Consult order Pharmacy Consult (Consult Rx Vancomycin Dosing) 1 each MISCELLANE DAILY PRN PRN Reason: Consult order Senna (Sennosides 8.6 Mg Tablet) 17.2 mg PO BEDTIME PRN PRN Reason: Constipation Sodium Chloride (0.9 % Sodium Chloride Flush 3 Ml Syringe) 3 ml IVFLUSH QSHIFT [facility] Last Admin: 10/02/21 00:06 Dose: Not Given Documented by: PORSCHE Non-Admin Reason: IV Running Labs CBC & Chem 7: 10/03/21 06:47 10/03/21 06:47 Labs: Laboratory Results - last 24 hr 10/01/21 10/01/21 10/01/21 13:50 14:15 14:15 MCV 105.6 H MCH 36.4 H MCHC 34.4 RDW 13.1 Plt Count 111 L MPV 12.0 Immature Gran % (Auto) 0.8 H Neut % (Auto) 88.6 H Lymph % (Auto) 3.1 L Carver % (Auto) 7.4 Eos % (Auto) 0.0 Baso % (Auto) 0.1 Lymph # (Auto) 0.6 L Carver # (Auto) 1.4 H Eos # (Auto) 0.0 Baso # (Auto) 0.0 Abs Immat Gran (auto) 0.15 H Absolute Neuts (auto) 16.8 H Absolute Nucleated RBC 0.020 H Nucleated RBC % (auto) 0.1 Smear Tech's Comments PT INR APTT Anion Gap 19 Estim Creat Clear Calc 27.3 Estimated GFR 27 POC Glucose Random Glucose 646 H* Lactic Acid Lactic Acid F/U @ 2Hr Lactic Acid F/U @ 4Hr Calcium 9.9 Magnesium 2.1 Total Bilirubin 2.0 H AST 26 ALT 59 H Alkaline Phosphatase 63 Troponin I High Sens B-Natriuretic Peptide Total Protein 5.7 L Albumin 3.5 Urine Color Urine Appearance Urine pH Ur Specific Wadley Urine Protein Urine Glucose (UA) Urine Ketones Urine Blood Urine Nitrite Ur Leukocyte Esterase Urine RBC Urine WBC Ur Squamous Epith Cells Urine Bacteria Acetone, Qual Small H COVID-19 (JOSEPH) Negative COVID-19 Clin Com See Note 10/01/21 10/01/21 10/01/21 14:15 14:15 14:15 MCV MCH MCHC RDW Plt Count MPV Immature Gran % (Auto) Neut % (Auto) Lymph % (Auto) Carver % (Auto) Eos % (Auto) Baso % (Auto) Lymph # (Auto) Carver # (Auto) Eos # (Auto) Baso # (Auto) Abs Immat Gran (auto) Absolute Neuts (auto) Absolute Nucleated RBC Nucleated RBC % (auto) Smear Tech's Comments PT 19.4 H INR 1.7 H APTT 30.5 Anion Gap Estim Creat Clear Calc Estimated GFR POC Glucose Random Glucose Lactic Acid 2.8 H* Lactic Acid F/U @ 2Hr Lactic Acid F/U @ 4Hr Calcium Magnesium Total Bilirubin AST ALT Alkaline Phosphatase Troponin I High Sens 23.1 H B-Natriuretic Peptide 1193 H Total Protein Albumin Urine Color Urine Appearance Urine pH Ur Specific Wadley Urine Protein Urine Glucose (UA) Urine Ketones Urine Blood Urine Nitrite Ur Leukocyte Esterase Urine RBC Urine WBC Ur Squamous Epith Cells Urine Bacteria Acetone, Qual COVID-19 (JOSEPH) COVID-19 Clin Com 10/01/21 10/01/21 10/01/21 14:24 15:44 17:06 MCV MCH MCHC RDW Plt Count MPV Immature Gran % (Auto) Neut % (Auto) Lymph % (Auto) Carver % (Auto) Eos % (Auto) Baso % (Auto) Lymph # (Auto) Carver # (Auto) Eos # (Auto) Baso # (Auto) Abs Immat Gran (auto) Absolute Neuts (auto) Absolute Nucleated RBC Nucleated RBC % (auto) Smear Tech's Comments PT INR APTT Anion Gap Estim Creat Clear Calc Estimated GFR POC Glucose 566 H* 550 H* 502 H* Random Glucose Lactic Acid Lactic Acid F/U @ 2Hr Lactic Acid F/U @ 4Hr Calcium Magnesium Total Bilirubin AST ALT Alkaline Phosphatase Troponin I High Sens B-Natriuretic Peptide Total Protein Albumin Urine Color Urine Appearance Urine pH Ur Specific Wadley Urine Protein Urine Glucose (UA) Urine Ketones Urine Blood Urine Nitrite Ur Leukocyte Esterase Urine RBC Urine WBC Ur Squamous Epith Cells Urine Bacteria Acetone, Qual COVID-19 (JOSEPH) COVID-19 Clin Com 10/01/21 10/01/21 10/01/21 17:53 18:11 20:14 MCV MCH MCHC RDW Plt Count MPV Immature Gran % (Auto) Neut % (Auto) Lymph % (Auto) Carver % (Auto) Eos % (Auto) Baso % (Auto) Lymph # (Auto) Carver # (Auto) Eos # (Auto) Baso # (Auto) Abs Immat Gran (auto) Absolute Neuts (auto) Absolute Nucleated RBC Nucleated RBC % (auto) Smear Tech's Comments PT INR APTT Anion Gap Estim Creat Clear Calc Estimated GFR POC Glucose 414 H* Random Glucose Lactic Acid Lactic Acid F/U @ 2Hr 4.6 H* Lactic Acid F/U @ 4Hr Calcium Magnesium Total Bilirubin AST ALT Alkaline Phosphatase Troponin I High Sens B-Natriuretic Peptide Total Protein Albumin Urine Color YELLOW Urine Appearance CLEAR Urine pH 5.5 Ur Specific Wadley 1.020 Urine Protein NEG Urine Glucose (UA) >=1000 H Urine Ketones NEG Urine Blood TRACE Urine Nitrite NEG Ur Leukocyte Esterase NEG Urine RBC 0-2 Urine WBC 0-2 Ur Squamous Epith Cells TRACE Urine Bacteria NONE Acetone, Qual COVID-19 (JOSEPH) COVID-19 Clin Com 10/01/21 10/01/21 10/01/21 20:14 20:14 21:26 MCV MCH MCHC RDW Plt Count MPV Immature Gran % (Auto) Neut % (Auto) Lymph % (Auto) Carver % (Auto) Eos % (Auto) Baso % (Auto) Lymph # (Auto) Carver # (Auto) Eos # (Auto) Baso # (Auto) Abs Immat Gran (auto) Absolute Neuts (auto) Absolute Nucleated RBC Nucleated RBC % (auto) Smear Tech's Comments PT INR APTT Anion Gap 16 Estim Creat Clear Calc 27.2 Estimated GFR 27 POC Glucose 290 H Random Glucose 366 H* Lactic Acid Cancelled Lactic Acid F/U @ 2Hr Lactic Acid F/U @ 4Hr Calcium 10.0 Magnesium Total Bilirubin AST ALT Alkaline Phosphatase Troponin I High Sens B-Natriuretic Peptide Total Protein Albumin Urine Color Urine Appearance Urine pH Ur Specific Wadley Urine Protein Urine Glucose (UA) Urine Ketones Urine Blood Urine Nitrite Ur Leukocyte Esterase Urine RBC Urine WBC Ur Squamous Epith Cells Urine Bacteria Acetone, Qual COVID-19 (JOSEPH) COVID-19 [employer] Com 10/01/21 10/01/21 10/02/21 22:38 23:36 03:33 MCV 109.1 H MCH 36.6 H MCHC 33.5 RDW 13.1 Plt Count 118 L MPV 11.5 Immature Gran % (Auto) 0.9 H Neut % (Auto) 83.6 H Lymph % (Auto) 6.4 L Carver % (Auto) 9.0 Eos % (Auto) 0.0 Baso % (Auto) 0.1 Lymph # (Auto) 1.2 Carver # (Auto) 1.6 H Eos # (Auto) 0.0 Baso # (Auto) 0.0 Abs Immat Gran (auto) 0.16 H Absolute Neuts (auto) 15.0 H Absolute Nucleated RBC 0.020 H Nucleated RBC % (auto) 0.1 Smear Tech's Comments VERIFIED PT INR APTT Anion Gap Estim Creat Clear Calc Estimated GFR POC Glucose Random Glucose Lactic Acid Lactic Acid F/U @ 2Hr Lactic Acid F/U @ 4Hr 4.8 H* Calcium Magnesium Total Bilirubin AST ALT Alkaline Phosphatase Troponin I High Sens 63.7 H* D B-Natriuretic Peptide Total Protein Albumin Urine Color Urine Appearance Urine pH Ur Specific Wadley Urine Protein Urine Glucose (UA) Urine Ketones Urine Blood Urine Nitrite Ur Leukocyte Esterase Urine RBC Urine WBC Ur Squamous Epith Cells Urine Bacteria Acetone, Qual COVID-19 (JOSEPH) COVID-19 Clin Com 10/02/21 10/02/21 03:33 08:04 MCV MCH MCHC RDW Plt Count MPV Immature Gran % (Auto) Neut % (Auto) Lymph % (Auto) Carver % (Auto) Eos % (Auto) Baso % (Auto) Lymph # (Auto) Carver # (Auto) Eos # (Auto) Baso # (Auto) Abs Immat Gran (auto) Absolute Neuts (auto) Absolute Nucleated RBC Nucleated RBC % (auto) Smear Tech's Comments PT INR APTT Anion Gap 16 Estim Creat Clear Calc 31.5 Estimated GFR 32 POC Glucose Random Glucose 162 H Lactic Acid Lactic Acid F/U @ 2Hr Lactic Acid F/U @ 4Hr Calcium 10.0 Magnesium Total Bilirubin AST ALT Alkaline Phosphatase Troponin I High Sens 46.4 H B-Natriuretic Peptide Total Protein Albumin Urine Color Urine Appearance Urine pH Ur Specific Wadley Urine Protein Urine Glucose (UA) Urine Ketones Urine Blood Urine Nitrite Ur Leukocyte Esterase Urine RBC Urine WBC Ur Squamous Epith Cells Urine Bacteria Acetone, Qual COVID-19 (JOSEPH) COVID-19 Clin Com Assessment and Plan (1) Sepsis: Status: Acute (2) Low blood pressure: Status: Acute (3) Atrial fibrillation with rapid ventricular response: Status: Acute (4) Hyperglycemia due to type 2 diabetes mellitus: Status: Acute Assessment and Plan: 81-year-old female with a past medical history of hypertension, diabetes, diastolic CHF, chronic AFib-not on anticoagulation, chronic lymphedema; presented to the hospital today with a chief complaint of bilateral leg swelling and pain.? Noted to have following conditions Septic shock/severe sepsis likely from bilateral leg cellulitis -IVF to maintain BP -Will discuss with ICU -Mododrine -Broad speck Abx with Jatin and Chinyeren -ID consult pending -Nora, Autumn Johnson and Charley are all taking ICU transfers AFib with rapid ventricular response likely precipitated by Sepsis. -management challenge due to hypotension -Gave 0.5 of dig -avoiding Cardizem or BB until BP better, -has chronic AFIB unlikely to respond to cardioversion -Starting on Amio drip Acute on chronic diastolic CHF: clinically doesn't appear to be in failure, dc Lasix given low BP, cardiology to help with management PARKER: due to sepsis, will likely improve once sepsis is better.? Bilateral leg lymphedema/cellulitis:? Patient on broad-spectrum antibiotics IV vancomycin and cefepime.? Negative DVT Diabetes/hyperglycemia:??Insiluin DVT prophylaxis:? Lovenox Code status: DNI/DNI Quality Stroke Does the patient have a stroke diagnosis?: No VTE Prior VTE?: No VTE Risk Level:: Medical - moderate - high VTE Device Contraindication: Treatment Not Indicated VTE Drug Contraindication: N/A - Med Ordered
[2021-10-02] MEDS: Midodrine HCl 10 MG TABLET PO (10:50)
[2021-10-02] MEDS: 0.9 % Sodium Chloride Flush 3 ML SYRINGE IVFLUSH (10:54)
--- NOTE | 2021-10-02 11:11 | PM.CNCAR ---
History of Present Illness History of Present Illness Date of Service: 10/02/21 Requesting physician: Abilio [facility] Consult reason: atrial fibrillation Chief complaint: Low blood pressure, rapid atrial fibrillation, Narrative: I was consulted to see Debra in cardiology consultation today due to rapid ventricular response to atrial fibrillation with borderline blood pressure. Patient known to me with prior history of chronic atrial fibrillation for many years on rate control as patient refused to be on oral anticoagulation could not be cardioverted at any point in time. She also has heart failure with preserved ejection fraction chronic lymphedema, obesity, hypertension. She present hospital with progressive weakness, she started noticing shortness of breath and leg swelling about 2 weeks ago on . And then she got progressively weak. She said yesterday she could not get of the commode and valve weak and was advised by the has been to get up when she fell down and hit her face on the ground.. Subsequently EMS was called and she was brought to the emergency room. She was noted to be in atrial fibrillation rapid ventricular response. However she also was noted to have acute kidney injury and was given IV metoprolol as well as IV Cardizem. Subsequently blood pressure today are soft but remains in rapid atrial fibrillation. She is noted to have marked leukocytosis as well as lactic acid levels of 4.8. She is given some fluid bolus and is currently getting fluid bolus however chest x-ray and BNP findings consistent with CHF. She remains in atrial fibrillation with difficult control rate. Digoxin was given a 0.5 mg at 08:30 this morning with barely any response. Her blood pressure is noted be systolic 90. She is mentating in talking. She feels weak. She denies any palpitations. She does complain of some shortness of breath. Denies any chest pain or lightheadedness. Suspected sources cellulitis. She requires hemodynamic support, however there are no ICU beds here and calling couple of hospital by the primary hospitalist team there is no beds available. Review of Systems Constitutional: Constitutional: Denies chills, Denies fever(s), Reports lethargy and Reports weakness Eyes: Eyes: Reports no additional eye complaints ENT: Reports system reviewed and no additional complaints, except as documented Cardiovascular: Cardiovascular: Denies chest pain, Denies rapid heart rate, Denies lightheadedness, Denies Loss of Consciousness, Denies palpitations and Reports dyspnea Respiratory: Respiratory: Reports no additional respiratory complaints and Reports dyspnea Gastrointestinal: Gastrointestinal: Reports no additional gastrointestinal complaints Genitourinary: Genitourinary: Reports no additional female genitourinary complaints Musculoskeletal: Musculoskeletal: Reports no additional musculoskeletal complaints Integumentary/Breasts: Skin/Breast: Reports system reviewed and no additional complaints, except as docu Neurologic: Reports system reviewed and no additional complaints, except as documented and Reports weakness Psychiatric: Psychiatric: Reports no additional psychiatric complaints Endocrine: Endocrine: Reports no additional endocrine complaints and Denies palpitations PMFSH Past Medical History Medical History (HFpEF) heart failure with preserved ejection fraction Chronic atrial fibrillation Diabetes mellitus HTN (hypertension) Family History Family History Father No problems noted. Mother CVD (cardiovascular disease) Social History Social History Alcohol intake: never Smoked in Last 30 Days: No Use of substances other than those prescribed or required for medical reasons: No Advance Directives: No Advance Directives Information Provided: Yes Meds Allergies Allergy/AdvReac Type Severity Reaction Status Date / Time acetaminophen [From VICODIN] Allergy Unknown UNKNOWN Verified 10/01/21 15:41 acyclovir [ACYCLOVIR] Allergy Unknown HALLUCINATI Verified 10/01/21 15:41 ONS adhesive tape Allergy Unknown ALL TAPE Verified 10/01/21 15:41 SKIN EROSION amlodipine [From NORVASC] Allergy Unknown PEADAL Verified 10/01/21 15:41 EDEMA fluconazole [From DIFLUCAN] Allergy Unknown RASH/SWELLI Verified 10/01/21 15:41 NG hydralazine [HYDRALAZINE] Allergy Unknown CONFUSION Verified 10/01/21 15:41 hydrochlorothiazide Allergy Unknown UNKNOWN Verified 10/01/21 15:41 [HYDROCHLOROTHIAZIDE] hydrocodone [From VICODIN] Allergy Unknown SWELLING/ED Verified 10/01/21 15:41 CARMINA Iodinated Contrast Media Allergy Unknown ON Verified 10/01/21 15:41 [Iodinated Contrast Media - GLUCOPHAGE IV Dye] lisinopril [LISINOPRIL] Allergy Unknown LEG CRAMPS Verified 10/01/21 15:41 losartan [From COZAAR] Allergy Unknown UNKNOWN Verified 10/01/21 15:41 meperidine [From DEMEROL] Allergy Unknown ITCHING/PRU Verified 10/01/21 15:41 RITIS oxycodone [From PERCOCET] Allergy Unknown HALLUCINAT Verified 10/01/21 15:41 IONS simvastatin [SIMVASTATIN] Allergy Unknown PAIN IN Verified 10/01/21 15:41 FEET+UP LEGS Tetanus Vaccines and Toxoid Allergy Unknown ARMS SWELL Verified 10/01/21 15:41 [Tetanus Vaccines & Toxoid] valsartan [VALSARTAN] Allergy Unknown RINGING IN Verified 10/01/21 15:41 EARS Adhesive Tape Allergy Unknown Unknown Uncoded 10/01/21 15:41 IVP dye Allergy Unknown Unknown Uncoded 10/01/21 15:41 Tetanus Allergy Unknown Unknown Uncoded 10/01/21 15:41 Vicodin Allergy Unknown Unknown Uncoded 10/01/21 15:41 Active Medications: Current Medications Aspirin (Aspirin Enteric Coated 81 Mg Tablet.Dr) 81 mg PO DAILY [facility] Last Admin: 10/02/21 10:51 Dose: Not Given Documented by: Dextrose (Dextrose 50 % 25 Gm/50 Ml Vial) 25 gm IVPUSH Q15M PRN; Protocol PRN Reason: per Hypoglycemia Standing Ord. Enoxaparin Sodium (Enoxaparin Sodium 40 Mg/0.4 Ml Syringe) 40 mg SUBCUT Q24H RONALDO Furosemide (Furosemide 20 Mg Tablet) 20 mg PO DAILY [facility]; Protocol Last Admin: 10/02/21 10:51 Dose: Not Given Documented by: Glucose (Glucose Gel 15 Gm Gel..Gram.) 15 gm PO Q15M PRN; Protocol PRN Reason: per Hypoglycemia Standing Ord. Cefepime HCl 1 gm/ Sodium (Chloride) 50 mls @ 100 mls/hr IV Q12H [facility] Last Infusion: 10/02/21 00:06 Dose: Infused Documented by: Sodium Chloride (Ns) 1,000 mls @ 50 mls/hr IVCONT .Q20H [facility] Last Admin: 10/01/21 23:54 Dose: 50 mls/hr Documented by: Vancomycin HCl 750 mg/ Sodium (Chloride) 265 mls @ 265 mls/hr IV Q24H [facility] Insulin Glargine (Insulin Glargine,Hum.Rec.Anlog 100 Unit/Ml 10 Ml Vial) 10 unit SUBCUT BEDTIME [facility] Insulin Human Lispro (Insulin Lispro 100 Unit/Ml 3 Ml Vial) 0 unit SUBCUT QIDACHS [facility]; Protocol Melatonin (Melatonin 3 Mg Tablet) 6 mg PO BEDTIME PRN PRN Reason: Insomnia Metoprolol Tartrate (Metoprolol Tartrate 5 Mg/5 Ml Vial) 5 mg IVPUSH Q6H PRN PRN Reason: HR>125 Last Admin: 10/02/21 01:57 Dose: 5 mg Documented by: Pharmacy Consult (Consult Rx Perform Med Rec) 1 each MISCELLANE ONCE PRN PRN Reason: Consult order Pharmacy Consult (Consult Rx Vancomycin Dosing) 1 each MISCELLANE DAILY PRN PRN Reason: Consult order Senna (Sennosides 8.6 Mg Tablet) 17.2 mg PO BEDTIME PRN PRN Reason: Constipation Sodium Chloride (0.9 % Sodium Chloride Flush 3 Ml Syringe) 3 ml IVFLUSH [facility] Last Admin: 10/02/21 10:54 Dose: 3 ml Documented by: Home Medications Medication Instructions Recorded Confirmed Last Taken Type aspirin 81 mg tablet,delayed 81 mg PO DAILY 08/13/20 10/01/21 Unknown History release (Adult Low Dose Aspirin) furosemide 20 mg tablet (Lasix) 20 mg PO DAILY 08/13/20 10/01/21 Unknown History glyburide 5 mg tablet 5 mg PO DAILY 08/13/20 10/01/21 Unknown History metformin 500 mg tablet 500 mg PO DAILY 08/13/20 10/01/21 Unknown History atenolol 25 mg tablet 100 mg PO BID tab 02/12/21 10/01/21 Unknown History Physical Exam Vital Signs: Vital Signs: Last Vital Signs Temp 98.1 F 10/02/21 08:04 Pulse 145 H 10/02/21 10:24 Resp 22 H 10/02/21 10:24 BP 92/51 L 10/02/21 10:24 Pulse Ox 96 10/02/21 10:24 Oxygen Flow Rate 4 10/01/21 13:30 BMI result Body Mass Index 33.0 Const: General: cooperative, comfortable, alert, awake, ill appearing and tired appearing Nutritional Appearance: obese Orientation/consciousness: patient oriented x3 HENMT: Head: Yes normocephalic and Yes other (Abrasion on her forehead) Neck: Neck: Yes trachea midline and Yes JVD Chest: Chest palpation & inspection: normal inspection of the chest Resp: Effort & Inspection: no use of accessory muscles and other (Limited exam) Auscultation: clear to auscultation bilaterally (Anteriorly and laterally) Cardio: Jugular venous distension: JVD Rate: tachycardic Rhythm: abnormal rhythm irregularly irregular Heart sounds: S1 normal heart sound present, S2 normal heart sound present, no click, no gallops, no murmurs and no rubs GI: Auscultation: normal bowel sounds Skin: General skin exam: no rashes or lesions noted Neuro: General: patient oriented x3 and no focal motor deficits Extrem: General: No clubbing, No cyanosis and Yes edema (With cellulitic changes bilaterally) Psych: Appearance: grossly normal Objective Labs and Meds Result diagrams: 10/02/21 03:33 10/02/21 03:33 Lab results: Laboratory Results - last 24 hr 10/01/21 10/01/21 10/01/21 13:50 14:15 14:15 WBC 19.0 H RBC 4.62 Hgb 16.8 H Hct 48.8 H MCV 105.6 H MCH 36.4 H MCHC 34.4 RDW 13.1 Plt Count 111 L MPV 12.0 Immature Gran % (Auto) 0.8 H Neut % (Auto) 88.6 H Lymph % (Auto) 3.1 L [place] % (Auto) 7.4 Eos % (Auto) 0.0 Baso % (Auto) 0.1 Lymph # (Auto) 0.6 L [place] # (Auto) 1.4 H Eos # (Auto) 0.0 Baso # (Auto) 0.0 Abs Immat Gran (auto) 0.15 H Absolute Neuts (auto) 16.8 H Absolute Nucleated RBC 0.020 H Nucleated RBC % (auto) 0.1 Smear Tech's Comments PT INR APTT Sodium 131 L Potassium 5.5 H Chloride 103 Carbon Dioxide 15 L Anion Gap 19 BUN 51 H Creatinine 1.79 H Estim Creat Clear Calc 27.3 Estimated GFR 27 POC Glucose Random Glucose 646 H* Lactic Acid Lactic Acid F/U @ 2Hr Lactic Acid F/U @ 4Hr Calcium 9.9 Magnesium 2.1 Total Bilirubin 2.0 H AST 26 ALT 59 H Alkaline Phosphatase 63 Troponin I High Sens B-Natriuretic Peptide Total Protein 5.7 L Albumin 3.5 Urine Color Urine Appearance Urine pH Ur Specific [place] Urine Protein Urine Glucose (UA) Urine Ketones Urine Blood Urine Nitrite Ur Leukocyte Esterase Urine RBC Urine WBC Ur Squamous Epith Cells Urine Bacteria Acetone, Qual Small H COVID-19 (JOSEPH) Negative COVID-19 [employer] See Note 10/01/21 10/01/21 10/01/21 14:15 14:15 14:15 WBC RBC Hgb Hct MCV MCH MCHC RDW Plt Count MPV Immature Gran % (Auto) Neut % (Auto) Lymph % (Auto) [place] % (Auto) Eos % (Auto) Baso % (Auto) Lymph # (Auto) [place] # (Auto) Eos # (Auto) Baso # (Auto) Abs Immat Gran (auto) Absolute Neuts (auto) Absolute Nucleated RBC Nucleated RBC % (auto) Smear Tech's Comments PT 19.4 H INR 1.7 H APTT 30.5 Sodium Potassium Chloride Carbon Dioxide Anion Gap BUN Creatinine Estim Creat Clear Calc Estimated GFR POC Glucose Random Glucose Lactic Acid 2.8 H* Lactic Acid F/U @ 2Hr Lactic Acid F/U @ 4Hr Calcium Magnesium Total Bilirubin AST ALT Alkaline Phosphatase Troponin I High Sens 23.1 H B-Natriuretic Peptide 1193 H Total Protein Albumin Urine Color Urine Appearance Urine pH Ur Specific [place] Urine Protein Urine Glucose (UA) Urine Ketones Urine Blood Urine Nitrite Ur Leukocyte Esterase Urine RBC Urine WBC Ur Squamous Epith Cells Urine Bacteria Acetone, Qual COVID-19 (JOSEPH) COVID-19 [employer] 10/01/21 10/01/21 10/01/21 14:24 15:44 17:06 WBC RBC Hgb Hct MCV MCH MCHC RDW Plt Count MPV Immature Gran % (Auto) Neut % (Auto) Lymph % (Auto) [place] % (Auto) Eos % (Auto) Baso % (Auto) Lymph # (Auto) [place] # (Auto) Eos # (Auto) Baso # (Auto) Abs Immat Gran (auto) Absolute Neuts (auto) Absolute Nucleated RBC Nucleated RBC % (auto) Smear Tech's Comments PT INR APTT Sodium Potassium Chloride Carbon Dioxide Anion Gap BUN Creatinine Estim Creat Clear Calc Estimated GFR POC Glucose 566 H* 550 H* 502 H* Random Glucose Lactic Acid Lactic Acid F/U @ 2Hr Lactic Acid F/U @ 4Hr Calcium Magnesium Total Bilirubin AST ALT Alkaline Phosphatase Troponin I High Sens B-Natriuretic Peptide Total Protein Albumin Urine Color Urine Appearance Urine pH Ur Specific [place] Urine Protein Urine Glucose (UA) Urine Ketones Urine Blood Urine Nitrite Ur Leukocyte Esterase Urine RBC Urine WBC Ur Squamous Epith Cells Urine Bacteria Acetone, Qual COVID-19 (JOSEPH) COVID-19 [employer] 10/01/21 10/01/21 10/01/21 17:53 18:11 20:14 WBC RBC Hgb Hct MCV MCH MCHC RDW Plt Count MPV Immature Gran % (Auto) Neut % (Auto) Lymph % (Auto) [place] % (Auto) Eos % (Auto) Baso % (Auto) Lymph # (Auto) [place] # (Auto) Eos # (Auto) Baso # (Auto) Abs Immat Gran (auto) Absolute Neuts (auto) Absolute Nucleated RBC Nucleated RBC % (auto) Smear Tech's Comments PT INR APTT Sodium Potassium Chloride Carbon Dioxide Anion Gap BUN Creatinine Estim Creat Clear Calc Estimated GFR POC Glucose 414 H* Random Glucose Lactic Acid Lactic Acid F/U @ 2Hr 4.6 H* Lactic Acid F/U @ 4Hr Calcium Magnesium Total Bilirubin AST ALT Alkaline Phosphatase Troponin I High Sens B-Natriuretic Peptide Total Protein Albumin Urine Color YELLOW Urine Appearance CLEAR Urine pH 5.5 Ur Specific [place] 1.020 Urine Protein NEG Urine Glucose (UA) >=1000 H Urine Ketones NEG Urine Blood TRACE Urine Nitrite NEG Ur Leukocyte Esterase NEG Urine RBC 0-2 Urine WBC 0-2 Ur Squamous Epith Cells TRACE Urine Bacteria NONE Acetone, Qual COVID-19 (JOSEPH) COVID-19 [employer] 10/01/21 10/01/21 10/01/21 20:14 20:14 21:26 WBC RBC Hgb Hct MCV MCH MCHC RDW Plt Count MPV Immature Gran % (Auto) Neut % (Auto) Lymph % (Auto) [place] % (Auto) Eos % (Auto) Baso % (Auto) Lymph # (Auto) [place] # (Auto) Eos # (Auto) Baso # (Auto) Abs Immat Gran (auto) Absolute Neuts (auto) Absolute Nucleated RBC Nucleated RBC % (auto) Smear Tech's Comments PT INR APTT Sodium 137 Potassium 5.0 Chloride 102 Carbon Dioxide 24 Anion Gap 16 BUN 52 H Creatinine 1.80 H Estim Creat Clear Calc 27.2 Estimated GFR 27 POC Glucose 290 H Random Glucose 366 H* Lactic Acid Cancelled Lactic Acid F/U @ 2Hr Lactic Acid F/U @ 4Hr Calcium 10.0 Magnesium Total Bilirubin AST ALT Alkaline Phosphatase Troponin I High Sens B-Natriuretic Peptide Total Protein Albumin Urine Color Urine Appearance Urine pH Ur Specific [place] Urine Protein Urine Glucose (UA) Urine Ketones Urine Blood Urine Nitrite Ur Leukocyte Esterase Urine RBC Urine WBC Ur Squamous Epith Cells Urine Bacteria Acetone, Qual COVID-19 (JOSEPH) COVID-19 [employer] 10/01/21 10/01/21 10/02/21 22:38 23:36 03:33 WBC 18.0 H RBC 4.70 Hgb 17.2 H Hct 51.3 H MCV 109.1 H MCH 36.6 H MCHC 33.5 RDW 13.1 Plt Count 118 L MPV 11.5 Immature Gran % (Auto) 0.9 H Neut % (Auto) 83.6 H Lymph % (Auto) 6.4 L [place] % (Auto) 9.0 Eos % (Auto) 0.0 Baso % (Auto) 0.1 Lymph # (Auto) 1.2 [place] # (Auto) 1.6 H Eos # (Auto) 0.0 Baso # (Auto) 0.0 Abs Immat Gran (auto) 0.16 H Absolute Neuts (auto) 15.0 H Absolute Nucleated RBC 0.020 H Nucleated RBC % (auto) 0.1 Smear Tech's Comments VERIFIED PT INR APTT Sodium Potassium Chloride Carbon Dioxide Anion Gap BUN Creatinine Estim Creat Clear Calc Estimated GFR POC Glucose Random Glucose Lactic Acid Lactic Acid F/U @ 2Hr Lactic Acid F/U @ 4Hr 4.8 H* Calcium Magnesium Total Bilirubin AST ALT Alkaline Phosphatase Troponin I High Sens 63.7 H* D B-Natriuretic Peptide Total Protein Albumin Urine Color Urine Appearance Urine pH Ur Specific [place] Urine Protein Urine Glucose (UA) Urine Ketones Urine Blood Urine Nitrite Ur Leukocyte Esterase Urine RBC Urine WBC Ur Squamous Epith Cells Urine Bacteria Acetone, Qual COVID-19 (JOSEPH) COVID-19 [employer] 10/02/21 10/02/21 03:33 08:04 WBC RBC Hgb Hct MCV MCH MCHC RDW Plt Count MPV Immature Gran % (Auto) Neut % (Auto) Lymph % (Auto) [place] % (Auto) Eos % (Auto) Baso % (Auto) Lymph # (Auto) [place] # (Auto) Eos # (Auto) Baso # (Auto) Abs Immat Gran (auto) Absolute Neuts (auto) Absolute Nucleated RBC Nucleated RBC % (auto) Smear Tech's Comments PT INR APTT Sodium 137 Potassium 4.9 Chloride 104 Carbon Dioxide 22 Anion Gap 16 BUN 51 H Creatinine 1.55 H Estim Creat Clear Calc 31.5 Estimated GFR 32 POC Glucose Random Glucose 162 H Lactic Acid Lactic Acid F/U @ 2Hr Lactic Acid F/U @ 4Hr Calcium 10.0 Magnesium Total Bilirubin AST ALT Alkaline Phosphatase Troponin I High Sens 46.4 H B-Natriuretic Peptide Total Protein Albumin Urine Color Urine Appearance Urine pH Ur Specific [place] Urine Protein Urine Glucose (UA) Urine Ketones Urine Blood Urine Nitrite Ur Leukocyte Esterase Urine RBC Urine WBC Ur Squamous Epith Cells Urine Bacteria Acetone, Qual COVID-19 (JOSEPH) COVID-19 Clin Com Imaging Radiologist's impression: Impressions Chest X-Ray 10/01/21 13:24 IMPRESSION: Increased bilateral parahilar markings likely interstitial edema or pneumonitis. Similar findings were seen on previous exam 07/28/2018 Venous Duplex 10/01/21 19:44 IMPRESSION: No DVT demonstrated in the bilateral lower extremities. Extremity Ultrasound 10/02/21 08:33 IMPRESSION: Soft tissue swelling consistent with cellulitis. No abscess. Assessment and Plan (1) Atrial fibrillation with rapid ventricular response: Status: Acute Patient with atrial fibrillation rapid ventricular response, difficult control with low blood pressure. This to me appears to be secondary to her primary acute medical illness with what appears to be sepsis. She has chronic atrial fibrillation I do not think that is driving her hypertension at this point in time but could be contributing to lower stroke volume. Rate control if possible. She has been given digoxin. Cannot tolerate Cardizem and metoprolol due to low blood pressure. Will start her on amiodarone drip 1 mg a minute for 12 hours followed by 0.5 mg a minute to control of heart rate. Given her chronicity of atrial fibrillation left atrial enlargement I do not think especially given that she is not on oral anticoagulation to do cardioversion on our as this would lead to thromboembolic complication. She has in the past refused to be on oral anticoagulation therapy. This may need to be rediscussed again. Right now she has acute kidney injury would avoid any direct oral anticoagulant therapy. Supportive care and treatment of underlying sepsis and hypertension. Cannot get IV vasopressor support for low blood pressure due to inability of ICU bed. Been given p.o. midodrine to help control and maintain blood pressure. Continue the same. Overall prognosis is guarded. (2) Low blood pressure: Status: Acute Low blood pressure, related to underlying acute medical illness with sepsis. Management and. IV fluids need to be use carefully given that she has chest x-ray finding suggestive of pulmonary edema as well as elevated BNP and symptoms of shortness of breath. Is likely to precipitate pulmonary edema which may complicate her management overall. Continue treat underlying sepsis aggressively with antibiotics. (3) Sepsis: Status: Acute Sepsis being managed by medical team. Continue aggressive management. Needs blood pressure supportive care. However no ICU beds available and this is going to be difficult management. Overall prognosis guarded. Discussed with the primary hospitalist team he will try to contact the hospitalist to see patient can be moved to another hospital. Continue antibiotics aggressively. Midodrine for blood pressure support. Will follow with you. Greater than 45 minutes spent in managing her complex care Procedures Date of Service Date of Service: 10/02/21
--- NOTE | 2021-10-02 11:53 | PC.NURSE ---
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
[2021-10-02] MEDS: cefEPime HCl 1 GM in 0.9 % Sodium Chloride 50 ML IV (11:55)
[2021-10-02 12:31] LABS: Glucose, Whole Blood 179 mg/dL (60-115)
[2021-10-02] MEDS: Insulin Lispro 100 UNIT/ML 3 ML VIAL SUBCUT ×2 (13:35→19:15)
--- NOTE | 2021-10-02 13:35 | PC.NURSE ---
patient sleeping, wakes to verbal stimulus, monitoring coordinator afib 120s-140s, baron cath patient/draining, pt currently has no pain/discomfort, pt requested applesauce to eat which was given to her, call stewart within reach, ivf running per order, will continue to monitor.
--- NOTE | 2021-10-02 13:54 | W.PM.CCCN ---
History of Present Illness Data of Consult Service Date: 10/02/21 Requesting physician: Abilio Del Toro Primary Care Provider: Unknown Physician HPI Reason for consult: ? Septic shock I was asked by Dr. Del Toro to see Mrs. Yu because septic shock. Briefly, the patient presented to the ED yesterday because of leg swelling. ?This is an 81-year-old woman with past medical history of hypertension, diabetes, diastolic heart failure, and chronic atrial fibrillation-not on anticoagulation, and chronic lymphedema. She tells me that she was tricked into being brought to the ED by her and her daughter, and she is not happy to be there.? She was reportedly brought in because of pain and swelling in her legs for the past few weeks.? She also complained of shortness of breath and dyspnea on exertion.? She denied any cough or fevers.? She does take Lasix at home.? She has DNR/DNI status. In the ED, her white count and lactate were elevated and there was concern for cellulitis.? Her BNP was elevated and her legs were swollen and she had congestion on her chest x-ray, suggesting heart failure. ?She was in atrial fibrillation with rapid ventricular response.? And she had elevated glucose without DKA. She was given IV antibiotics, metoprolol, Lasix, insulin and admitted to Medicine. Curiously, her hemoglobin was elevated to 16-17 (baseline 15), and her BUN/creatinine were 51/1.8 (baseline 24/1 point 2), both suggesting hypovolemia. I visited her in the ED.? She was somewhat listless, but fully alert and appropriate, as noted above.? She c/o the ETCO2 nasal cannula, which was interfering w her ability to eat her apple sauce, which she said she was enjoying.? Breathing easy with Sat low 90?s on room air, up to 100% on 3L NC oxygen. IMPRESSION: 1. Her normal mental status and breathing argue against septic shock being the cause of her hypotension.? It does happen, but it?s not common.? (She should, of course, be continued on abx, pending cultures and resolution of her WBC and clinical exam of her legs.) 2. Her volume status needs to be better assessed, given the hemoconcentration and high renal ratio, both of which argue strongly for dehydration.? I would strongly suggest an echo to visualize her IVC. 3. Her RVR may well be playing a role in her hypotension, and should be addressed immediately, with amiodarone if nec. Would suggest repeat BMP, BNP, Mg, phos, and lactic acid now.? Would also send a urine sodium (even though she?s already been given Lasix). Discussed w Dr. Del Toro. At this point, we have no bed availability in ICU.? I?m guessing that if her RVR is resolved, her BP will cease to be a problem. Time: [facility] Past Medical History Medical History (HFpEF) heart failure with preserved ejection fraction Chronic atrial fibrillation Diabetes mellitus HTN (hypertension) Family History Family History Father No problems noted. Mother CVD (cardiovascular disease) Social History Social History Alcohol intake: never Smoked in Last 30 Days: No Use of substances other than those prescribed or required for medical reasons: No Advance Directives: No Advance Directives Information Provided: Yes Meds Allergies Allergy/AdvReac Type Severity Reaction Status Date / Time acetaminophen [From VICODIN] Allergy Unknown UNKNOWN Verified 10/01/21 15:41 acyclovir [ACYCLOVIR] Allergy Unknown HALLUCINATI Verified 10/01/21 15:41 ONS adhesive tape Allergy Unknown ALL TAPE Verified 10/01/21 15:41 SKIN EROSION amlodipine [From NORVASC] Allergy Unknown PEADAL Verified 10/01/21 15:41 EDEMA fluconazole [From DIFLUCAN] Allergy Unknown RASH/SWELLI Verified 10/01/21 15:41 NG hydralazine [HYDRALAZINE] Allergy Unknown CONFUSION Verified 10/01/21 15:41 hydrochlorothiazide Allergy Unknown UNKNOWN Verified 10/01/21 15:41 [HYDROCHLOROTHIAZIDE] hydrocodone [From VICODIN] Allergy Unknown SWELLING/ED Verified 10/01/21 15:41 CARMINA Iodinated Contrast Media Allergy Unknown ON Verified 10/01/21 15:41 [Iodinated Contrast Media - GLUCOPHAGE IV Dye] lisinopril [LISINOPRIL] Allergy Unknown LEG CRAMPS Verified 10/01/21 15:41 losartan [From COZAAR] Allergy Unknown UNKNOWN Verified 10/01/21 15:41 meperidine [From DEMEROL] Allergy Unknown ITCHING/PRU Verified 10/01/21 15:41 RITIS oxycodone [From PERCOCET] Allergy Unknown HALLUCINAT Verified 10/01/21 15:41 IONS simvastatin [SIMVASTATIN] Allergy Unknown PAIN IN Verified 10/01/21 15:41 FEET+UP LEGS Tetanus Vaccines and Toxoid Allergy Unknown ARMS SWELL Verified 10/01/21 15:41 [Tetanus Vaccines & Toxoid] valsartan [VALSARTAN] Allergy Unknown RINGING IN Verified 10/01/21 15:41 EARS Adhesive Tape Allergy Unknown Unknown Uncoded 10/01/21 15:41 IVP dye Allergy Unknown Unknown Uncoded 10/01/21 15:41 Tetanus Allergy Unknown Unknown Uncoded 10/01/21 15:41 Vicodin Allergy Unknown Unknown Uncoded 10/01/21 15:41 Active Medications: Current Medications Aspirin (Aspirin Enteric Coated 81 Mg Tablet.) 81 mg PO DAILY [facility] Last Admin: 10/02/21 10:51 Dose: Not Given Documented by: Dextrose (Dextrose 50 % 25 Gm/50 Ml Vial) 25 gm IVPUSH Q15M PRN; Protocol PRN Reason: per Hypoglycemia Standing Ord. Enoxaparin Sodium (Enoxaparin Sodium 40 Mg/0.4 Ml Syringe) 40 mg SUBCUT Q24H RONALDO Furosemide (Furosemide 20 Mg Tablet) 20 mg PO DAILY [facility]; Protocol Last Admin: 10/02/21 10:51 Dose: Not Given Documented by: Glucose (Glucose Gel 15 Gm Gel..Gram.) 15 gm PO Q15M PRN; Protocol PRN Reason: per Hypoglycemia Standing Ord. Cefepime HCl 1 gm/ Sodium (Chloride) 50 mls @ 100 mls/hr IV Q12H [facility] Last Infusion: 10/02/21 12:31 Dose: Infused Documented by: Sodium Chloride (Ns) 1,000 mls @ 50 mls/hr IVCONT .Q20H [facility] Last Admin: 10/01/21 23:54 Dose: 50 mls/hr Documented by: Vancomycin HCl 750 mg/ Sodium (Chloride) 265 mls @ 265 mls/hr IV Q24H RONALDO Amiodarone HCl 900 mg/ Sodium (Chloride) 518 mls @ 34.533 mls/hr IVCONT .Q15H1M [facility]; Protocol Insulin Glargine (Insulin Glargine,Hum.Rec.Anlog 100 Unit/Ml 10 Ml Vial) 10 unit SUBCUT BEDTIME [facility] Insulin Human Lispro (Insulin Lispro 100 Unit/Ml 3 Ml Vial) 0 unit SUBCUT QIDACHS [facility]; Protocol Last Admin: 10/02/21 13:35 Dose: 2 unit Documented by: Melatonin (Melatonin 3 Mg Tablet) 6 mg PO BEDTIME PRN PRN Reason: Insomnia Metoprolol Tartrate (Metoprolol Tartrate 5 Mg/5 Ml Vial) 5 mg IVPUSH Q6H PRN PRN Reason: HR>125 Last Admin: 10/02/21 01:57 Dose: 5 mg Documented by: Pharmacy Consult (Consult Rx Perform Med Rec) 1 each MISCELLANE ONCE PRN PRN Reason: Consult order Pharmacy Consult (Consult Rx Vancomycin Dosing) 1 each MISCELLANE DAILY PRN PRN Reason: Consult order Senna (Sennosides 8.6 Mg Tablet) 17.2 mg PO BEDTIME PRN PRN Reason: Constipation Sodium Chloride (0.9 % Sodium Chloride Flush 3 Ml Syringe) [facility] Last Admin: 10/02/21 10:54 Dose: 3 ml Documented by: Home Medications Medication Instructions Recorded Confirmed Last Taken Type aspirin 81 mg tablet,delayed 81 mg PO DAILY 08/13/20 10/01/21 Unknown History release (Adult Low Dose Aspirin) furosemide 20 mg tablet (Lasix) 20 mg PO DAILY 08/13/20 10/01/21 Unknown History glyburide 5 mg tablet 5 mg PO DAILY 08/13/20 10/01/21 Unknown History metformin 500 mg tablet 500 mg PO DAILY 08/13/20 10/01/21 Unknown History atenolol 25 mg tablet 100 mg PO BID tab 02/12/21 10/01/21 Unknown History Physical Exam Vital Signs: Vital Signs: Last Vital Signs Temp 98.4 F 10/02/21 11:41 Pulse 142 H 10/02/21 11:41 Resp 19 10/02/21 11:41 BP 96/48 L 10/02/21 11:41 Pulse Ox 94 10/02/21 11:41 Oxygen Flow Rate 4 10/01/21 13:30 BMI result Body Mass Index 33.0 Results Labs CBC & Chem 7: 10/02/21 14:03 10/02/21 03:33 Labs: Short CBC 10/01/21 10/02/21 Range/Units 14:15 03:33 WBC 19.0 H 18.0 H (4.8-10.8) X10*3/uL Hgb 16.8 H 17.2 H (12.0-16.0) g/dl Hct 48.8 H 51.3 H (37.0-47.0) % Plt Count 111 L 118 L (160-400) X10*3/uL BMP 10/01/21 10/01/21 10/02/21 14:15 20:14 03:33 Sodium 131 L 137 137 Potassium 5.5 H 5.0 4.9 Chloride 103 102 104 Carbon Dioxide 15 L 24 22 BUN 51 H 52 H 51 H Creatinine 1.79 H 1.80 H 1.55 H Calcium 9.9 10.0 10.0 Liver Function 10/01/21 Range/Units 14:15 Total Bilirubin 2.0 H (0.0-1.0) mg/dL AST 26 (5-31) U/L ALT 59 H (0-31) U/L Alkaline Phosphatase 63 (39-117) U/L Albumin 3.5 (3.5-5.0) g/dL Urine 10/01/21 Range/Units 17:53 Urine Color YELLOW Urine Appearance CLEAR Urine pH 5.5 (5.0-8.0) Ur Specific [place] 1.020 (1.005-1.025) Urine Protein NEG (NEG-TRACE) MG/DL Urine Glucose (UA) >=1000 H (NEG) MG/DL
[2021-10-02 14:14] LABS: Hematocrit 54.9 % (37.0-47.0); Hemoglobin 18.1 g/dl (12.0-16.0); Mean Corpuscular Hemoglobin 36.6 pg (27.0-33.0); Mean Platelet Volume 11.6 fL (9.4-12.3); Platelet Count 111 X10*3/uL (160-400); Red Blood Count 4.94 X10*6/uL (4.20-5.50); Red Cell Distribution Width 13.2 % (11.0-16.0); White Blood Count 18.8 X10*3/uL (4.8-10.8)
[2021-10-02 14:18] LABS: Mean Corpuscular Volume 111.1 fL (80.0-98.0)
[2021-10-02] MEDS: Amiodarone HCL 900 MG in 0.9 % Sodium Chloride 500 ML 34.53 MG IVCONT (14:20)
--- NOTE | 2021-10-02 14:20 | PC.NURSE ---
pt sleeping, wakes to verbal stimulus, ivf running per order, baron cath patient/draining yellow urine, cardiac cath technician afib 130s-160, amio drip started per order, pt 3l o2 nc, bp soft, will continue to monitor.
[2021-10-02 14:35] LABS: Magnesium 2.3 mg/dL (1.6-2.6); Phosphorus 3.6 mg/dL (2.7-4.5)
[2021-10-02 14:40] LABS: B Type Natriuretic Peptide 419 pg/mL (<100); B Type Natriuretic Peptide 440 pg/mL (<100)
[2021-10-02 14:55] LABS: Lactic Acid 3.9 mmol/L (0.5-2.0)
--- NOTE | 2021-10-02 15:01 | PC.NURSE ---
critical lab obtained, dr. rubi cano text result, pts lactic is 3.9 but has decreased from her previous draw
[2021-10-02 15:08] LABS: Anion Gap 17 (12-20); Blood Urea Nitrogen 50 mg/dL (9-16); Calcium 9.5 mg/dL (8.4-10.2); Carbon Dioxide 17 mmol/L (22-29); Chloride 107 mmol/L (96-108); Creatinine Clr Calc Pharmacy 33.5; Estimated Glomerular Filt Rate 34; Glucose Random 223 mg/dL (60-115); Potassium 5.4 mmol/L (3.3-5.1); Sodium 136 mmol/L (135-145)
--- NOTE | 2021-10-02 15:24 | CA_ITS ---
Transthoracic Echocardiogram Patient (Last, First, Middle): Debra Yu, Gender: Female Date of : 1940 Age: 81 Procedure Date: 10/02/2021 Procedure Type: Transthoracic Echocardiogram Location: ICU Height: 167.64 cm Weight: 92.99 kg BSA: 2.02 m2 Heart Rate: bpm BP: 100 / 49 mmHg Manager Telemarketing: YARELI Referring MD: V[employer] Manager: Fabrice Hughes MD Symptoms: Hypotension,AF Study Quality: Fair ECG Rhythm: Atrial Fibrillation Conclusions: - 1. Normal LV systolic function with moderate LVH with grade 3 diastolic dysfunction 2. Moderately dilated right ventricle with reduced systolic function 3. At least moderate biatrial enlargement 4. Mild mitral regurgitation 5. Severely elevated right ventricular systolic pressure with significantly elevated right atrial pressures 6. No gross pericardial effusion Findings Left Ventricle Normal left ventricular size and systolic function. There is moderately increased left ventricular wall thickness. The visually estimated ejection fraction is between 55-60%. There is a flattened septum in systole consistent with right ventricular pressure overload. Spectral Doppler is indicative of a restrictive filling pattern. E/E prime ratio is >15, consistent with elevated filling pressures. Evidence suggests grade III (severe) diastolic dysfunction. Right Ventricle Moderately increased right ventricular cavity size. There is mild to moderately decreased right ventricular systolic function. Atria The left atrium is moderately dilated. Interatrial shunt cannot be excluded. The right atrium is moderately dilated. Aortic Valve The aortic valve structure and function is likely normal. There is no aortic valve stenosis. There is no aortic valve regurgitation. Mitral Valve There is moderate anterior mitral leaflet thickening. There is mild mitral annular calcification. There is mild mitral valve regurgitation. There is no mitral valve stenosis. Pulmonic Valve The pulmonic valve was not well visualized. Tricuspid Valve Likely normal tricuspid valve structure and function. There is mild to moderate tricuspid valve regurgitation. Significantly elevated right atrial pressure. Severe pulmonary hypertension is present. Great Vessels All visible segments of the aorta are normal in size. The pulmonary artery was not well visualized. Venous The inferior vena cava is moderately dilated and does not collapse with inspiration. Pericardium/Pleural There is no evidence of pericardial effusion. Prior Study Comparison Changes noted compared to prior study. RV systolic pressure is significantly elevated along with significantly elevated right atrial pressures. Measurements 2D Linear Measurements IVSd: 1.41 0.6-0.9/0.6-1.0 cm LVIDd: 2.82 3.9-5.3/4.2-5.9 cm LVIDd Index: 1.40 2.4-3.2/2.2-3.1 cm/m2 LVIDs: 2.12 2.0-3.6 cm LVPWd: 1.36 0.7-1.1 cm LV Mass: 158.34 67-162/88-224 g LV Mass Index: 78.39 43-95/49-115 g/m2 Mitral Valve MV Pk E: 1.26 MV Decel Time: 135.00 E'Lateral: 5.00 E'Medial: 4.68 E/E' Med: 26.90 E/E' Lat: 25.20 PHT: 39.00 MVA PHT: 5.64 Decel [place]: 9.35 Diastolic Function MV Pk E: 1.26 E'Medial: 4.68 E/E' Med: 26.90 E' Laterial: 5.00 E/E' Lat: 25.20 Right Ventricle TAPSE (mm): 12.00 Tricuspid Valve TR Pk Rigoberto: 3.96 TR Pk Grad: 63.00 RA Press: 15.00 RVSP: 78.00 Updated in Other Vendor System with Status of Final Fabrice Hughes MD electronically signed on 10/02/2021 4:23:17 PM with status of Final
[2021-10-02] MEDS: Amiodarone/Dextrose 150 MG/100 ML PLAST..BAG 600 MG IV (15:33)
--- NOTE | 2021-10-02 16:37 | P.PNCC_ITS ---
Subjective Subjective Date of Service: 10/02/21 Interval History: See my earlier note. ECHOCARDIOGRAM done by the tech: Image quality: Excellent. Findings: 1. LV is under filled, with a D sign. No regional wall motion abnormalities noted. 2. RV is enlarged and function is decreased. The RV apex is almost akinetic. RV:LV cavity ratio 1.2-1.5. Septum is flattened. With RV contraction, septal bowing into the LV is noted on some views. 3. Both atria are very enlarged, larger than their respective ventricles. 4. At least 3+ TR by color christine Doppler. Continuous-wave Doppler envelope measured 4.0 m/sec. Gradient 64 mm. 4. IVC measured 2.4 cm with minimal inspiratory collapse. CVP estimate 15mm. RVSP estimate 79mm. Report from echo done 06/14/2018 indicates that RV cavity size and systolic function was normal; Right atrium was normal in size; tricuspid peak velocity was 3.1; right atrial pressure estimate was 8 mm. IMPRESSION: The right heart findings are almost certainly acute, given the fact that the patient has a positive lactic acid, and underfilled RV. Those two findings, in particular the underfilled LV, are highly suggestive of acute right heart failure. She has no reason to have acute RHF other than PE, or acute UT, the latter of which is not supported by her sx, trop, or EKG. She has a possible reason to have the positive lactate -- ie. septic shock -- but as stated in my prev note, her clinical picture is inconsistent with septic shock. Furthermore, septic shock (nor chronic diastolic failure, nor worsening chronic right heart failure) would account for her underfilled LV. I have written her for Lovenox 70 mg bid. She will have a [employer] perf scan this evening (as soon as we can get the tech in). This is a massive PE given the underfilled LV and positive lactate. Given that, she is a candidate for tPA if she's had a PE, and if she and/or her family agrees. We'll wait to see the result of the perf scan. Critical care time (includ faitht d/w Dr. Del Toro, d/w Dr. Hughes, [facility] administrative discussions to obtain the perf scan, mult d/w nursing to secure an ICU bed.): 75+ min Critical Care Time (minutes): 75 Physical Exam Vital Signs: Vital Signs: Last Vital Signs Temp 98.0 F 10/02/21 16:28 Pulse 55 10/02/21 16:28 Resp 16 10/02/21 16:28 BP 117/52 L 10/02/21 16:28 Pulse Ox 95 10/02/21 16:28 Oxygen Flow Rate 4 10/01/21 13:30 BMI result Body Mass Index 33.0 Objective Data Labs CBC & Chem 7: 10/02/21 14:03 10/02/21 14:03 Labs: Laboratory Results - last 24 hr 10/01/21 10/01/21 10/01/21 14:15 17:06 17:53 WBC RBC Hgb Hct MCV MCH MCHC RDW Plt Count MPV Immature Gran % (Auto) Neut % (Auto) Lymph % (Auto) [place] % (Auto) Eos % (Auto) Baso % (Auto) Lymph # (Auto) [place] # (Auto) Eos # (Auto) Baso # (Auto) Abs Immat Gran (auto) Absolute Neuts (auto) Absolute Nucleated RBC Nucleated RBC % (auto) Smear Tech's Comments Sodium Potassium Chloride Carbon Dioxide Anion Gap BUN Creatinine Estim Creat Clear Calc Estimated GFR POC Glucose 502 H* Random Glucose Lactic Acid Lactic Acid F/U @ 2Hr Lactic Acid F/U @ 4Hr Calcium Phosphorus Magnesium Troponin I High Sens B-Natriuretic Peptide Urine Color YELLOW Urine Appearance CLEAR Urine pH 5.5 Ur Specific [place] 1.020 Urine Protein NEG Urine Glucose (UA) >=1000 H Urine Ketones NEG Urine Blood TRACE Urine Nitrite NEG Ur Leukocyte Esterase NEG Urine RBC 0-2 Urine WBC 0-2 Ur Squamous Epith Cells TRACE Urine Bacteria NONE Acetone, Qual Small H 10/01/21 10/01/21 10/01/21 18:11 20:14 20:14 WBC RBC Hgb Hct MCV MCH MCHC RDW Plt Count MPV Immature Gran % (Auto) Neut % (Auto) Lymph % (Auto) [place] % (Auto) Eos % (Auto) Baso % (Auto) Lymph # (Auto) [place] # (Auto) Eos # (Auto) Baso # (Auto) Abs Immat Gran (auto) Absolute Neuts (auto) Absolute Nucleated RBC Nucleated RBC % (auto) Smear Tech's Comments Sodium 137 Potassium 5.0 Chloride 102 Carbon Dioxide 24 Anion Gap 16 BUN 52 H Creatinine 1.80 H Estim Creat Clear Calc 27.2 Estimated GFR 27 POC Glucose 414 H* Random Glucose 366 H* Lactic Acid Lactic Acid F/U @ 2Hr 4.6 H* Lactic Acid F/U @ 4Hr Calcium 10.0 Phosphorus Magnesium Troponin I High Sens B-Natriuretic Peptide Urine Color Urine Appearance Urine pH Ur Specific [place] Urine Protein Urine Glucose (UA) Urine Ketones Urine Blood Urine Nitrite Ur Leukocyte Esterase Urine RBC Urine WBC Ur Squamous Epith Cells Urine Bacteria Acetone, Qual 10/01/21 10/01/21 10/01/21 20:14 21:26 22:38 WBC RBC Hgb Hct MCV MCH MCHC RDW Plt Count MPV Immature Gran % (Auto) Neut % (Auto) Lymph % (Auto) [place] % (Auto) Eos % (Auto) Baso % (Auto) Lymph # (Auto) [place] # (Auto) Eos # (Auto) Baso # (Auto) Abs Immat Gran (auto) Absolute Neuts (auto) Absolute Nucleated RBC Nucleated RBC % (auto) Smear Tech's Comments Sodium Potassium Chloride Carbon Dioxide Anion Gap BUN Creatinine Estim Creat Clear Calc Estimated GFR POC Glucose 290 H Random Glucose Lactic Acid Cancelled Lactic Acid F/U @ 2Hr Lactic Acid F/U @ 4Hr 4.8 H* Calcium Phosphorus Magnesium Troponin I High Sens B-Natriuretic Peptide Urine Color Urine Appearance Urine pH Ur Specific [place] Urine Protein Urine Glucose (UA) Urine Ketones Urine Blood Urine Nitrite Ur Leukocyte Esterase Urine RBC Urine WBC Ur Squamous Epith Cells Urine Bacteria Acetone, Qual 10/01/21 10/02/21 10/02/21 23:36 03:33 03:33 WBC 18.0 H RBC 4.70 Hgb 17.2 H Hct 51.3 H MCV 109.1 H MCH 36.6 H MCHC 33.5 RDW 13.1 Plt Count 118 L MPV 11.5 Immature Gran % (Auto) 0.9 H Neut % (Auto) 83.6 H Lymph % (Auto) 6.4 L [place] % (Auto) 9.0 Eos % (Auto) 0.0 Baso % (Auto) 0.1 Lymph # (Auto) 1.2 [place] # (Auto) 1.6 H Eos # (Auto) 0.0 Baso # (Auto) 0.0 Abs Immat Gran (auto) 0.16 H Absolute Neuts (auto) 15.0 H Absolute Nucleated RBC 0.020 H Nucleated RBC % (auto) 0.1 Smear Tech's Comments VERIFIED Sodium 137 Potassium 4.9 Chloride 104 Carbon Dioxide 22 Anion Gap 16 BUN 51 H Creatinine 1.55 H Estim Creat Clear Calc 31.5 Estimated GFR 32 POC Glucose Random Glucose 162 H Lactic Acid Lactic Acid F/U @ 2Hr Lactic Acid F/U @ 4Hr Calcium 10.0 Phosphorus Magnesium Troponin I High Sens 63.7 H* D B-Natriuretic Peptide Urine Color Urine Appearance Urine pH Ur Specific [place] Urine Protein Urine Glucose (UA) Urine Ketones Urine Blood Urine Nitrite Ur Leukocyte Esterase Urine RBC Urine WBC Ur Squamous Epith Cells Urine Bacteria Acetone, Qual 10/02/21 10/02/21 10/02/21 08:04 12:22 14:03 WBC RBC Hgb Hct MCV MCH MCHC RDW Plt Count MPV Immature Gran % (Auto) Neut % (Auto) Lymph % (Auto) [place] % (Auto) Eos % (Auto) Baso % (Auto) Lymph # (Auto) [place] # (Auto) Eos # (Auto) Baso # (Auto) Abs Immat Gran (auto) Absolute Neuts (auto) Absolute Nucleated RBC Nucleated RBC % (auto) Smear Tech's Comments Sodium Potassium Chloride Carbon Dioxide Anion Gap BUN Creatinine Estim Creat Clear Calc Estimated GFR POC Glucose 179 H Random Glucose Lactic Acid Lactic Acid F/U @ 2Hr Lactic Acid F/U @ 4Hr Calcium Phosphorus Magnesium Troponin I High Sens 46.4 H B-Natriuretic Peptide 440 H Urine Color Urine Appearance Urine pH Ur Specific [place] Urine Protein Urine Glucose (UA) Urine Ketones Urine Blood Urine Nitrite Ur Leukocyte Esterase Urine RBC Urine WBC Ur Squamous Epith Cells Urine Bacteria Acetone, Qual 10/02/21 10/02/21 10/02/21 14:03 14:03 14:03 WBC 18.8 H RBC 4.94 Hgb 18.1 H Hct 54.9 H MCV 111.1 H MCH 36.6 H MCHC 33.0 RDW 13.2 Plt Count 111 L MPV 11.6 Immature Gran % (Auto) Neut % (Auto) Lymph % (Auto) [place] % (Auto) Eos % (Auto) Baso % (Auto) Lymph # (Auto) [place] # (Auto) Eos # (Auto) Baso # (Auto) Abs Immat Gran (auto) Absolute Neuts (auto) Absolute Nucleated RBC 0.000 Nucleated RBC % (auto) 0.0 Smear Tech's Comments Sodium 136 Potassium 5.4 H Chloride 107 Carbon Dioxide 17 L Anion Gap 17 BUN 50 H Creatinine 1.46 H Estim Creat Clear Calc 33.5 Estimated GFR 34 POC Glucose Random Glucose 223 H Lactic Acid Lactic Acid F/U @ 2Hr Lactic Acid F/U @ 4Hr Calcium 9.5 Phosphorus 3.6 Magnesium 2.3 Troponin I High Sens B-Natriuretic Peptide 419 H Urine Color Urine Appearance Urine pH Ur Specific [place] Urine Protein Urine Glucose (UA) Urine Ketones Urine Blood Urine Nitrite Ur Leukocyte Esterase Urine RBC Urine WBC Ur Squamous Epith Cells Urine Bacteria Acetone, Qual 10/02/21 14:37 WBC RBC Hgb Hct MCV MCH MCHC RDW Plt Count MPV Immature Gran % (Auto) Neut % (Auto) Lymph % (Auto) [place] % (Auto) Eos % (Auto) Baso % (Auto) Lymph # (Auto) [place] # (Auto) Eos # (Auto) Baso # (Auto) Abs Immat Gran (auto) Absolute Neuts (auto) Absolute Nucleated RBC Nucleated RBC % (auto) Smear Tech's Comments Sodium Potassium Chloride Carbon Dioxide Anion Gap BUN Creatinine Estim Creat Clear Calc Estimated GFR POC Glucose Random Glucose Lactic Acid 3.9 H* Lactic Acid F/U @ 2Hr Lactic Acid F/U @ 4Hr Calcium Phosphorus Magnesium Troponin I High Sens B-Natriuretic Peptide Urine Color Urine Appearance Urine pH Ur Specific [place] Urine Protein Urine Glucose (UA) Urine Ketones Urine Blood Urine Nitrite Ur Leukocyte Esterase Urine RBC Urine WBC Ur Squamous Epith Cells Urine Bacteria Acetone, Qual Microbiology Microbiology Results: Microbiology 10/01/21 14:15 Blood - Venous Blood Culture - Preliminary No growth after 24 hours. 10/01/21 13:50 Blood - Venous Blood Culture - Preliminary No growth after 24 hours. Quality Stroke Does the patient have a stroke diagnosis?: No VTE Prior VTE?: No VTE Risk Level:: Medical - moderate - high VTE Device Contraindication: Treatment Not Indicated VTE Drug Contraindication: N/A - Med Ordered Critical Care Time Critical Care Time (minutes): 90
[2021-10-02 16:42] LABS: Glucose, Whole Blood 271 mg/dL (60-115)
[2021-10-02 16:42] LABS: Reflex Lactate? Lactic Acid Added
[2021-10-02 17:42] LABS: ~Lactic Acid-LAB USE ONLY 3.2 mmol/L (0.5-2.0)
--- NOTE | 2021-10-02 18:24 | PC.NURSE ---
pt transported to scan
[2021-10-02 19:16] LABS: Reflex Lactate? 2 Y
[2021-10-02 19:24] LABS: Cancel Lactic Acid Canceled
--- NOTE | 2021-10-02 19:30 | PC.NURSE ---
waiting on the lovenox from pharmacy
[2021-10-02] MEDS: Enoxaparin Sodium 80 MG/0.8 ML SYRINGE 70 MG SUBCUT (19:42)
[2021-10-02] MEDS: 0.9 % Sodium Chloride 1,000 ML 50 ML IVCONT (19:54)
--- NOTE | 2021-10-02 20:10 | PM.CCPN ---
Subjective Subjective Date of Service: 10/02/21 Interval History: Perfusion scan was low probability. Patient will transfer to the ICU for further management because of right heart failure with underfilled LV and positive lactic acid, high mortality risk. Critical Care Time (minutes): 0 Physical Exam Vital Signs: Vital Signs: Last Vital Signs Temp 98.0 F 10/02/21 16:28 Pulse 105 H 10/02/21 19:18 Resp 17 10/02/21 19:18 BP 97/64 10/02/21 19:18 Pulse Ox 96 10/02/21 19:18 Oxygen Flow Rate 4 10/01/21 13:30 BMI result Body Mass Index 33.0 Objective Data Labs CBC & Chem 7: 10/02/21 14:03 10/02/21 14:03 Labs: Laboratory Results - last 24 hr 10/01/21 10/01/21 10/01/21 20:14 20:14 20:14 WBC RBC Hgb Hct MCV MCH MCHC RDW Plt Count MPV Immature Gran % (Auto) Neut % (Auto) Lymph % (Auto) [place] % (Auto) Eos % (Auto) Baso % (Auto) Lymph # (Auto) [place] # (Auto) Eos # (Auto) Baso # (Auto) Abs Immat Gran (auto) Absolute Neuts (auto) Absolute Nucleated RBC Nucleated RBC % (auto) Smear Tech's Comments Sodium 137 Potassium 5.0 Chloride 102 Carbon Dioxide 24 Anion Gap 16 BUN 52 H Creatinine 1.80 H Estim Creat Clear Calc 27.2 Estimated GFR 27 POC Glucose Random Glucose 366 H* Lactic Acid Cancelled Lactic Acid F/U @ 2Hr 4.6 H* Lactic Acid F/U @ 4Hr Calcium 10.0 Phosphorus Magnesium Troponin I High Sens B-Natriuretic Peptide 10/01/21 10/01/21 10/01/21 21:26 22:38 23:36 WBC RBC Hgb Hct MCV MCH MCHC RDW Plt Count MPV Immature Gran % (Auto) Neut % (Auto) Lymph % (Auto) [place] % (Auto) Eos % (Auto) Baso % (Auto) Lymph # (Auto) [place] # (Auto) Eos # (Auto) Baso # (Auto) Abs Immat Gran (auto) Absolute Neuts (auto) Absolute Nucleated RBC Nucleated RBC % (auto) Smear Tech's Comments Sodium Potassium Chloride Carbon Dioxide Anion Gap BUN Creatinine Estim Creat Clear Calc Estimated GFR POC Glucose 290 H Random Glucose Lactic Acid Lactic Acid F/U @ 2Hr Lactic Acid F/U @ 4Hr 4.8 H* Calcium Phosphorus Magnesium Troponin I High Sens 63.7 H* D B-Natriuretic Peptide 10/02/21 10/02/21 10/02/21 03:33 03:33 08:04 WBC 18.0 H RBC 4.70 Hgb 17.2 H Hct 51.3 H MCV 109.1 H MCH 36.6 H MCHC 33.5 RDW 13.1 Plt Count 118 L MPV 11.5 Immature Gran % (Auto) 0.9 H Neut % (Auto) 83.6 H Lymph % (Auto) 6.4 L [place] % (Auto) 9.0 Eos % (Auto) 0.0 Baso % (Auto) 0.1 Lymph # (Auto) 1.2 [place] # (Auto) 1.6 H Eos # (Auto) 0.0 Baso # (Auto) 0.0 Abs Immat Gran (auto) 0.16 H Absolute Neuts (auto) 15.0 H Absolute Nucleated RBC 0.020 H Nucleated RBC % (auto) 0.1 Smear Tech's Comments VERIFIED Sodium 137 Potassium 4.9 Chloride 104 Carbon Dioxide 22 Anion Gap 16 BUN 51 H Creatinine 1.55 H Estim Creat Clear Calc 31.5 Estimated GFR 32 POC Glucose Random Glucose 162 H Lactic Acid Lactic Acid F/U @ 2Hr Lactic Acid F/U @ 4Hr Calcium 10.0 Phosphorus Magnesium Troponin I High Sens 46.4 H B-Natriuretic Peptide 10/02/21 10/02/21 10/02/21 12:22 14:03 14:03 WBC 18.8 H RBC 4.94 Hgb 18.1 H Hct 54.9 H MCV 111.1 H MCH 36.6 H MCHC 33.0 RDW 13.2 Plt Count 111 L MPV 11.6 Immature Gran % (Auto) Neut % (Auto) Lymph % (Auto) [place] % (Auto) Eos % (Auto) Baso % (Auto) Lymph # (Auto) [place] # (Auto) Eos # (Auto) Baso # (Auto) Abs Immat Gran (auto) Absolute Neuts (auto) Absolute Nucleated RBC 0.000 Nucleated RBC % (auto) 0.0 Smear Tech's Comments Sodium Potassium Chloride Carbon Dioxide Anion Gap BUN Creatinine Estim Creat Clear Calc Estimated GFR POC Glucose 179 H Random Glucose Lactic Acid Lactic Acid F/U @ 2Hr Lactic Acid F/U @ 4Hr Calcium Phosphorus Magnesium Troponin I High Sens B-Natriuretic Peptide 440 H 10/02/21 10/02/21 10/02/21 14:03 14:03 14:37 WBC RBC Hgb Hct MCV MCH MCHC RDW Plt Count MPV Immature Gran % (Auto) Neut % (Auto) Lymph % (Auto) [place] % (Auto) Eos % (Auto) Baso % (Auto) Lymph # (Auto) [place] # (Auto) Eos # (Auto) Baso # (Auto) Abs Immat Gran (auto) Absolute Neuts (auto) Absolute Nucleated RBC Nucleated RBC % (auto) Smear Tech's Comments Sodium 136 Potassium 5.4 H Chloride 107 Carbon Dioxide 17 L Anion Gap 17 BUN 50 H Creatinine 1.46 H Estim Creat Clear Calc 33.5 Estimated GFR 34 POC Glucose Random Glucose 223 H Lactic Acid 3.9 H* Lactic Acid F/U @ 2Hr Lactic Acid F/U @ 4Hr Calcium 9.5 Phosphorus 3.6 Magnesium 2.3 Troponin I High Sens B-Natriuretic Peptide 419 H 10/02/21 10/02/21 16:27 17:14 WBC RBC Hgb Hct MCV MCH MCHC RDW Plt Count MPV Immature Gran % (Auto) Neut % (Auto) Lymph % (Auto) [place] % (Auto) Eos % (Auto) Baso % (Auto) Lymph # (Auto) [place] # (Auto) Eos # (Auto) Baso # (Auto) Abs Immat Gran (auto) Absolute Neuts (auto) Absolute Nucleated RBC Nucleated RBC % (auto) Smear Tech's Comments Sodium Potassium Chloride Carbon Dioxide Anion Gap BUN Creatinine Estim Creat Clear Calc Estimated GFR POC Glucose 271 H Random Glucose Lactic Acid Lactic Acid F/U @ 2Hr 3.2 H* Lactic Acid F/U @ 4Hr Calcium Phosphorus Magnesium Troponin I High Sens B-Natriuretic Peptide Microbiology Microbiology Results: Microbiology 10/01/21 14:15 Blood - Venous Blood Culture - Preliminary No growth after 24 hours. 10/01/21 13:50 Blood - Venous Blood Culture - Preliminary No growth after 24 hours. Quality Stroke Does the patient have a stroke diagnosis?: No VTE Prior VTE?: No VTE Risk Level:: Medical - moderate - high VTE Device Contraindication: Treatment Not Indicated VTE Drug Contraindication: N/A - Med Ordered
--- NOTE | 2021-10-02 20:33 | PC.NURSE ---
amiodarone drip changed to 0.5 per order
[2021-10-02 20:46] LABS: ~Lactic Acid-LAB USE ONLY 3.3 mmol/L (0.5-2.0)
[2021-10-02 21:02] LABS: Glucose, Whole Blood 233 mg/dL (60-115)
[2021-10-03] VITALS (13 sets, daily range): BP systolic 97–147; BP diastolic 46–76; PULSE 82–142; RESP 13–20; TEMP 35–37.2; O2SAT 83–98; BMI 40.3; BMI 43.5
[2021-10-03] MEDS: Insulin Lispro 100 UNIT/ML 3 ML VIAL SUBCUT ×2 (01:01→18:02)
[2021-10-03] MEDS: 0.9 % Sodium Chloride Flush 3 ML SYRINGE IVFLUSH ×3 (01:10→22:13)
[2021-10-03] MEDS: Midodrine HCl 10 MG TABLET PO ×4 (01:10→22:12)
[2021-10-03] MEDS: cefEPime HCl 1 GM in 0.9 % Sodium Chloride 50 ML IV ×3 (01:23→22:11)
[2021-10-03] MEDS: vancomycin HCL 750 MG in 0.9 % Sodium Chloride 250 ML 265 MG IV ×2 (01:24→23:51)
[2021-10-03] MEDS: Insulin Glargine,Hum.rec.anlog 100 UNIT/ML 10 ML VIAL 10 UNIT SUBCUT (01:26)
[2021-10-03] MEDS: fentaNYL citrate/PF 100 MCG/2 ML VIAL 25 MCG IVPUSH (02:36)
--- NOTE | 2021-10-03 04:59 | PC.NURSE ---
Pt to ICU at 2215 in no acute distress. Bp stable on arrival 131/72. Monitor: afib, 90's-110, no vent ectopy. Amiodarone drip infusing at 0.5 mcg/min. NS drip at 50 ml/hr. BP did get a little soft as the night went on but MAP was >65. Pt received midodrine. Wounds to lower legs noted. Dr Stemp at bedside and witnessed the dsg change. Wound culture taken of outer aspect of right lower leg. Pictures taken and posted in chart. Wounds dressed with zeroform, non adherent pad and wrapped with gauze. Both lower legs edematous 3+ and redenned. Pt cries and moans in pain with movement. Morphine 1 mg IV given with good effect. Urine output is good. Pt to be transferred to telemetry bed. She is aware of plan but she is forgetful.
[2021-10-03 06:52] LABS: MANUAL DIFF FLAG NO
[2021-10-03 07:01] LABS: Basophils Percent Auto 0.1 % (0-2); Eosinophils Percent Auto 0.1 % (0-4); Hematocrit 49.2 % (37.0-47.0); Hemoglobin 16.3 g/dl (12.0-16.0); Imm Gran Abs Auto 0.09 X10*3/uL (0.00-0.03); Imm Gran Pct Auto 0.7 % (0.0-0.4); Lymphocytes Absolute Auto 0.9 X10*3/uL (1.2-4.9); Lymphocytes Percent Auto 6.5 % (20-40); Mean Corpuscular HGB Conc 33.1 g/dl (31.0-35.0); Mean Corpuscular Hemoglobin 35.9 pg (27.0-33.0); Mean Corpuscular Volume 108.4 fL (80.0-98.0); Mean Platelet Volume 11.8 fL (9.4-12.3); Monocytes Absolute Auto 1.2 X10*3/uL (0.1-1.2); Monocytes Percent Auto 8.9 % (2-11); Neutrophils Percent Auto 83.7 % (45-73); Platelet Count 108 X10*3/uL (160-400); Red Blood Count 4.54 X10*6/uL (4.20-5.50); White Blood Count 13.1 X10*3/uL (4.8-10.8)
[2021-10-03 07:28] LABS: B Type Natriuretic Peptide 499 pg/mL (<100)
[2021-10-03 07:33] LABS: Anion Gap 11 (12-20); Blood Urea Nitrogen 43 mg/dL (9-16); Calcium 8.8 mg/dL (8.4-10.2); Carbon Dioxide 17 mmol/L (22-29); Chloride 113 mmol/L (96-108); Creatinine Clr Calc Pharmacy 50.3; Estimated Glomerular Filt Rate 46; Glucose Random 146 mg/dL (60-115); Potassium 4.5 mmol/L (3.3-5.1); Sodium 136 mmol/L (135-145)
[2021-10-03 07:44] LABS: Procalcitonin 1.29 ng/mL
[2021-10-03 08:03] LABS: Glucose, Whole Blood 133 mg/dL (60-115)
--- NOTE | 2021-10-03 09:42 | P.PNIM_ITS ---
Subjective Subjective Date of Service: 10/03/21 Interval History: Seen in f/u for sepsis, AFIB with RVR complicated by hypOtension. Doing better, hypotension is resolved, HR is controlled. Seems a bit confused this morning. Review of Systems some confusion, no fever, Physical Exam Vital Signs: Vital Signs: Last Vital Signs Temp 98.4 F 10/03/21 07:00 Pulse 110 H 10/03/21 07:00 Resp 16 10/03/21 07:00 BP 118/73 10/03/21 07:00 Pulse Ox 98 10/03/21 07:00 Oxygen Flow Rate 4 10/01/21 13:30 BMI result Body Mass Index 43.5 Const: Other: General: AO X 2, no acute distress Resp: CTA bilateral CVS: S1,S2,RRR GI: +BS, NT, no distention Skin: ulcers on legs Neuro: motor grossly intact Psych: appropriate affect Objective Data Active Medications Aspirin (Aspirin Enteric Coated 81 Mg Tablet.Dr) 81 mg PO DAILY [facility] Last Admin: 10/02/21 10:51 Dose: Not Given Documented by: SHIN Non-Admin Reason: Physician Held Med Dextrose (Dextrose 50 % 25 Gm/50 Ml Vial) 25 gm IVPUSH Q15M PRN; Protocol PRN Reason: per Hypoglycemia Standing Ord. Fentanyl (Fentanyl Citrate/Pf 100 Mcg/2 Ml Vial) 25 mcg IVPUSH Q1H PRN; Protocol PRN Reason: dressing changes Last Admin: 10/03/21 02:36 Dose: 25 mcg Documented by: ELISABETH Furosemide (Furosemide 20 Mg Tablet) 20 mg PO DAILY [facility]; Protocol Last Admin: 10/02/21 10:51 Dose: Not Given Documented by: SHIN Non-Admin Reason: Physician Held Med Glucose (Glucose Gel 15 Gm Gel..Gram.) 15 gm PO Q15M PRN; Protocol PRN Reason: per Hypoglycemia Standing Ord. Cefepime HCl 1 gm/ Sodium (Chloride) 50 mls @ 100 mls/hr IV Q12H [facility] Last Infusion: 10/03/21 05:18 Dose: 0 mls/hr Documented by: KENTRELL Sodium Chloride (Ns) 1,000 mls @ 50 mls/hr IVCONT .Q20H [facility] Last Admin: 10/02/21 19:54 Dose: 50 mls/hr Documented by: DENNISE Vancomycin HCl 750 mg/ Sodium (Chloride) 265 mls @ 265 mls/hr IV Q24H [facility] Last Infusion: 10/03/21 05:19 Dose: 0 mls/hr Documented by: KENTRELL Amiodarone HCl 900 mg/ Sodium (Chloride) 518 mls @ 34.533 mls/hr IVCONT .Q15H1M [facility]; Protocol Last Infusion: 10/02/21 20:33 Dose: 0.5 mg/min, 17.27 mls/hr Documented by: DENNISE Insulin Glargine (Insulin Glargine,Hum.Rec.Anlog 100 Unit/Ml 10 Ml Vial) 10 unit SUBCUT BEDTIME [facility] Last Admin: 10/03/21 01:26 Dose: 10 unit Documented by: ELISABETH Insulin Human Lispro (Insulin Lispro 100 Unit/Ml 3 Ml Vial) 0 unit SUBCUT QIDACHS [facility]; Protocol Last Admin: 10/03/21 01:01 Dose: 4 unit Documented by: ELISABETH Melatonin (Melatonin 3 Mg Tablet) 6 mg PO BEDTIME PRN PRN Reason: Insomnia Metoprolol Tartrate (Metoprolol Tartrate 5 Mg/5 Ml Vial) 5 mg IVPUSH Q6H PRN PRN Reason: HR>125 Last Admin: 10/02/21 01:57 Dose: 5 mg Documented by: HUY Midodrine (Midodrine Hcl 10 Mg Tablet) 10 mg PO TID [facility] Last Admin: 10/03/21 01:10 Dose: 10 mg Documented by: ELISABETH Pharmacy Consult (Consult Rx Perform Med Rec) 1 each MISCELLANE ONCE PRN PRN Reason: Consult order Pharmacy Consult (Consult Rx Vancomycin Dosing) 1 each MISCELLANE DAILY PRN PRN Reason: Consult order Senna (Sennosides 8.6 Mg Tablet) 17.2 mg PO BEDTIME PRN PRN Reason: Constipation Sodium Chloride (0.9 % Sodium Chloride Flush 3 Ml Syringe) 3 ml IVFLUSH QSHIFT [facility] Last Admin: 10/03/21 01:10 Dose: 3 ml Documented by: ELISABETH Labs CBC & Chem 7: 10/03/21 06:47 10/03/21 06:47 Labs: Laboratory Results - last 24 hr 10/02/21 10/02/2122 12:22 14:03 14:03 MCV 111.1 H MCH 36.6 H MCHC 33.0 RDW 13.2 Plt Count 111 L MPV 11.6 Immature Gran % (Auto) Neut % (Auto) Lymph % (Auto) [place] % (Auto) Eos % (Auto) Baso % (Auto) Lymph # (Auto) [place] # (Auto) Eos # (Auto) Baso # (Auto) Abs Immat Gran (auto) Absolute Neuts (auto) Absolute Nucleated RBC 0.000 Nucleated RBC % (auto) 0.0 Anion Gap Estim Creat Clear Calc Estimated GFR POC Glucose 179 H Random Glucose Lactic Acid Lactic Acid F/U @ 2Hr Lactic Acid F/U @ 4Hr Calcium Phosphorus Magnesium B-Natriuretic Peptide 440 H Procalcitonin 10/02/21 10/02/21 10/02/21 14:03 14:03 14:37 MCV MCH MCHC RDW Plt Count MPV Immature Gran % (Auto) Neut % (Auto) Lymph % (Auto) [place] % (Auto) Eos % (Auto) Baso % (Auto) Lymph # (Auto) [place] # (Auto) Eos # (Auto) Baso # (Auto) Abs Immat Gran (auto) Absolute Neuts (auto) Absolute Nucleated RBC Nucleated RBC % (auto) Anion Gap 17 Estim Creat Clear Calc 33.5 Estimated GFR 34 POC Glucose Random Glucose 223 H Lactic Acid 3.9 H* Lactic Acid F/U @ 2Hr Lactic Acid F/U @ 4Hr Calcium 9.5 Phosphorus 3.6 Magnesium 2.3 B-Natriuretic Peptide 419 H Procalcitonin 10/02/21 10/02/21 10/02/21 16:27 17:14 19:40 MCV MCH MCHC RDW Plt Count MPV Immature Gran % (Auto) Neut % (Auto) Lymph % (Auto) [place] % (Auto) Eos % (Auto) Baso % (Auto) Lymph # (Auto) [place] # (Auto) Eos # (Auto) Baso # (Auto) Abs Immat Gran (auto) Absolute Neuts (auto) Absolute Nucleated RBC Nucleated RBC % (auto) Anion Gap Estim Creat Clear Calc Estimated GFR POC Glucose 271 H Random Glucose Lactic Acid Lactic Acid F/U @ 2Hr 3.2 H* Lactic Acid F/U @ 4Hr 3.3 H* Calcium Phosphorus Magnesium B-Natriuretic Peptide Procalcitonin 10/02/21 10/03/21 10/03/21 20:54 06:47 06:47 MCV 108.4 H MCH 35.9 H MCHC 33.1 RDW 13.0 Plt Count 108 L MPV 11.8 Immature Gran % (Auto) 0.7 H Neut % (Auto) 83.7 H Lymph % (Auto) 6.5 L [place] % (Auto) 8.9 Eos % (Auto) 0.1 Baso % (Auto) 0.1 Lymph # (Auto) 0.9 L [place] # (Auto) 1.2 Eos # (Auto) 0.0 Baso # (Auto) 0.0 Abs Immat Gran (auto) 0.09 H Absolute Neuts (auto) 11.0 H Absolute Nucleated RBC 0.000 Nucleated RBC % (auto) 0.0 Anion Gap 11 L Estim Creat Clear Calc 50.3 Estimated GFR 46 POC Glucose 233 H Random Glucose 146 H Lactic Acid Lactic Acid F/U @ 2Hr Lactic Acid F/U @ 4Hr Calcium 8.8 D Phosphorus 3.0 Magnesium 2.0 B-Natriuretic Peptide Procalcitonin 10/03/21 10/03/21 10/03/21 06:47 06:47 07:59 MCV MCH MCHC RDW Plt Count MPV Immature Gran % (Auto) Neut % (Auto) Lymph % (Auto) [place] % (Auto) Eos % (Auto) Baso % (Auto) Lymph # (Auto) [place] # (Auto) Eos # (Auto) Baso # (Auto) Abs Immat Gran (auto) Absolute Neuts (auto) Absolute Nucleated RBC Nucleated RBC % (auto) Anion Gap Estim Creat Clear Calc Estimated GFR POC Glucose 133 H Random Glucose Lactic Acid Lactic Acid F/U @ 2Hr Lactic Acid F/U @ 4Hr Calcium Phosphorus Magnesium B-Natriuretic Peptide 499 H Procalcitonin 1.29 Microbiology Microbiology Results: Microbiology 10/01/21 14:15 Blood Culture - Preliminary Blood - Venous No growth after 24 hours. 10/01/21 13:50 Blood Culture - Preliminary Blood - Venous No growth after 24 hours. Assessment and Plan (1) Sepsis: Status: Acute (2) Low blood pressure: Status: Acute (3) Atrial fibrillation with rapid ventricular response: Status: Acute (4) Hyperglycemia due to type 2 diabetes mellitus: Status: Acute Assessment and Plan: 81-year-old female with a past medical history of hypertension, diabetes, diastolic CHF, chronic AFib-not on anticoagulation, chronic lymphedema; presented to the hospital today with a chief complaint of bilateral leg swelling and pain.? Noted to have following conditions Septic shock/severe sepsis likely from bilateral leg cellulitis--Sepsis improved -source likely leg ulcer -cultures negative thus far -Continue broad spec Abx -Awaiting ID input -Midodrine to maintain BP AFib with rapid ventricular response likely precipitated by Sepsis.--Heart rate is bet -management challenge due to hypotension -Give dig -avoiding Cardizem or BB until BP better, -has chronic AFIB unlikely to respond to cardioversion -Starting on Amio drip on 10/02 -She has not wanted anticoagulation in past Acute on chronic diastolic CHF: clinically doesn't appear to be in failure, dc Lasix given low BP, cardiology to help with management PARKER: due to sepsis, resolved. Bilateral leg lymphedema/cellulitis:? Patient on broad-spectrum antibiotics IV vancomycin and cefepime.? Negative DVT Diabetes/hyperglycemia:??Insiluin DVT prophylaxis:? Lovenox Code status: DNI/DNI Quality Stroke Does the patient have a stroke diagnosis?: No VTE Prior VTE?: No VTE Risk Level:: Medical - moderate - high VTE Device Contraindication: Treatment Not Indicated VTE Drug Contraindication: N/A - Med Ordered
[2021-10-03 11:14] LABS: Glucose, Whole Blood 146 mg/dL (60-115)
[2021-10-03] MEDS: Aspirin Enteric Coated 81 MG TABLET.DR PO (11:22)
--- NOTE | 2021-10-03 11:49 | PM.PNCARD ---
Subjective Subjective Date of Service: 10/03/21 Principal diagnosis: AF,Sepsis, CHF Interval history: Patient says she does not feel well but very nonspecific about it. Says she is not happy being in the hospital. Says nobody skin taking care of her. Overall otherwise her numbers look better. Kidney functions have improved. Heart rate is better controlled. Blood pressure is more stable. Pulmonary perfusion was performed yesterday due to findings on echocardiogram however this is negative as expected. She still is short of breath but not significantly worse than yesterday. Continues to have leg edema. Blood cultures are pending Review of Systems Constitutional: Denies body ache(s), Denies chills, Denies fever(s), Reports malaise and Reports weakness Cardiovascular: Denies chest pain, Denies syncope, Denies lightheadedness, Denies Loss of Consciousness, Denies palpitations and Reports dyspnea Respiratory: Reports no additional respiratory complaints and Reports dyspnea Gastrointestinal: Reports no additional gastrointestinal complaints Musculoskeletal: Reports no additional musculoskeletal complaints Reports system reviewed and no additional complaints, except as documented, Denies syncope and Reports weakness Psychiatric: Reports no additional psychiatric complaints Endocrine: Denies palpitations Physical Exam Vital Signs: Last Vital Signs Temp 98.9 F 10/03/21 11:29 Pulse 142 H 10/03/21 11:29 Resp 20 10/03/21 11:29 BP 118/73 10/03/21 07:00 Pulse Ox 96 10/03/21 11:29 Oxygen Flow Rate 4 10/01/21 13:30 BMI result Body Mass Index 43.5 Const General: cooperative, comfortable, alert, awake, anxious and other (Tearful) Nutritional Appearance: obese Orientation/consciousness: patient oriented x3 Neck Neck: Yes trachea midline and Yes supple Resp Effort & Inspection: decreased respiratory effort Auscultation: diminished lung sounds Cardio Rate: tachycardic Rhythm: abnormal rhythm irregularly irregular Heart sounds: S1 normal heart sound present, S2 normal heart sound present, no click, no gallops and no murmurs GI Inspection: Yes obesity Auscultation: normal bowel sounds Neuro General: patient oriented x3 and no focal motor deficits Extrem General: No clubbing, No cyanosis and Yes edema (Cellulitic changes) Objective Labs and Meds Result diagrams: 10/03/21 06:47 10/03/21 06:47 Lab results: Laboratory Results - last 24 hr 10/02/21 10/02/21 10/02/21 12:22 14:03 14:03 WBC 18.8 H RBC 4.94 Hgb 18.1 H Hct 54.9 H MCV 111.1 H MCH 36.6 H MCHC 33.0 RDW 13.2 Plt Count 111 L MPV 11.6 Immature Gran % (Auto) Neut % (Auto) Lymph % (Auto) [place] % (Auto) Eos % (Auto) Baso % (Auto) Lymph # (Auto) [place] # (Auto) Eos # (Auto) Baso # (Auto) Abs Immat Gran (auto) Absolute Neuts (auto) Absolute Nucleated RBC 0.000 Nucleated RBC % (auto) 0.0 Sodium Potassium Chloride Carbon Dioxide Anion Gap BUN Creatinine Estim Creat Clear Calc Estimated GFR POC Glucose 179 H Random Glucose Lactic Acid Lactic Acid F/U @ 2Hr Lactic Acid F/U @ 4Hr Calcium Phosphorus Magnesium B-Natriuretic Peptide 440 H Procalcitonin 10/02/21 10/02/21 10/02/21 14:03 14:03 14:37 WBC RBC Hgb Hct MCV MCH MCHC RDW Plt Count MPV Immature Gran % (Auto) Neut % (Auto) Lymph % (Auto) [place] % (Auto) Eos % (Auto) Baso % (Auto) Lymph # (Auto) [place] # (Auto) Eos # (Auto) Baso # (Auto) Abs Immat Gran (auto) Absolute Neuts (auto) Absolute Nucleated RBC Nucleated RBC % (auto) Sodium 136 Potassium 5.4 H Chloride 107 Carbon Dioxide 17 L Anion Gap 17 BUN 50 H Creatinine 1.46 H Estim Creat Clear Calc 33.5 Estimated GFR 34 POC Glucose Random Glucose 223 H Lactic Acid 3.9 H* Lactic Acid F/U @ 2Hr Lactic Acid F/U @ 4Hr Calcium 9.5 Phosphorus 3.6 Magnesium 2.3 B-Natriuretic Peptide 419 H Procalcitonin 10/02/21 10/02/21 10/02/21 16:27 17:14 19:40 WBC RBC Hgb Hct MCV MCH MCHC RDW Plt Count MPV Immature Gran % (Auto) Neut % (Auto) Lymph % (Auto) [place] % (Auto) Eos % (Auto) Baso % (Auto) Lymph # (Auto) [place] # (Auto) Eos # (Auto) Baso # (Auto) Abs Immat Gran (auto) Absolute Neuts (auto) Absolute Nucleated RBC Nucleated RBC % (auto) Sodium Potassium Chloride Carbon Dioxide Anion Gap BUN Creatinine Estim Creat Clear Calc Estimated GFR POC Glucose 271 H Random Glucose Lactic Acid Lactic Acid F/U @ 2Hr 3.2 H* Lactic Acid F/U @ 4Hr 3.3 H* Calcium Phosphorus Magnesium B-Natriuretic Peptide Procalcitonin 10/02/21 10/03/21 10/03/21 20:54 06:47 06:47 WBC 13.1 H RBC 4.54 Hgb 16.3 H Hct 49.2 H MCV 108.4 H MCH 35.9 H MCHC 33.1 RDW 13.0 Plt Count 108 L MPV 11.8 Immature Gran % (Auto) 0.7 H Neut % (Auto) 83.7 H Lymph % (Auto) 6.5 L [place] % (Auto) 8.9 Eos % (Auto) 0.1 Baso % (Auto) 0.1 Lymph # (Auto) 0.9 L [place] # (Auto) 1.2 Eos # (Auto) 0.0 Baso # (Auto) 0.0 Abs Immat Gran (auto) 0.09 H Absolute Neuts (auto) 11.0 H Absolute Nucleated RBC 0.000 Nucleated RBC % (auto) 0.0 Sodium 136 Potassium 4.5 Chloride 113 H Carbon Dioxide 17 L Anion Gap 11 L BUN 43 H Creatinine 1.13 Estim Creat Clear Calc 50.3 Estimated GFR 46 POC Glucose 233 H Random Glucose 146 H Lactic Acid Lactic Acid F/U @ 2Hr Lactic Acid F/U @ 4Hr Calcium 8.8 D Phosphorus 3.0 Magnesium 2.0 B-Natriuretic Peptide Procalcitonin 10/03/21 10/03/21 10/03/21 06:47 06:47 07:59 WBC RBC Hgb Hct MCV MCH MCHC RDW Plt Count MPV Immature Gran % (Auto) Neut % (Auto) Lymph % (Auto) [place] % (Auto) Eos % (Auto) Baso % (Auto) Lymph # (Auto) [place] # (Auto) Eos # (Auto) Baso # (Auto) Abs Immat Gran (auto) Absolute Neuts (auto) Absolute Nucleated RBC Nucleated RBC % (auto) Sodium Potassium Chloride Carbon Dioxide Anion Gap BUN Creatinine Estim Creat Clear Calc Estimated GFR POC Glucose 133 H Random Glucose Lactic Acid Lactic Acid F/U @ 2Hr Lactic Acid F/U @ 4Hr Calcium Phosphorus Magnesium B-Natriuretic Peptide 499 H Procalcitonin 1.29 10/03/21 11:07 WBC RBC Hgb Hct MCV MCH MCHC RDW Plt Count MPV Immature Gran % (Auto) Neut % (Auto) Lymph % (Auto) [place] % (Auto) Eos % (Auto) Baso % (Auto) Lymph # (Auto) [place] # (Auto) Eos # (Auto) Baso # (Auto) Abs Immat Gran (auto) Absolute Neuts (auto) Absolute Nucleated RBC Nucleated RBC % (auto) Sodium Potassium Chloride Carbon Dioxide Anion Gap BUN Creatinine Estim Creat Clear Calc Estimated GFR POC Glucose 146 H Random Glucose Lactic Acid Lactic Acid F/U @ 2Hr Lactic Acid F/U @ 4Hr Calcium Phosphorus Magnesium B-Natriuretic Peptide Procalcitonin Imaging Radiologist's impression: Impressions Pulmonary Perfusion Imaging 10/02/21 18:54 IMPRESSION: Very low probability of pulmonary embolism. Progress Note: A&P Assessment and plan (1) Atrial fibrillation with rapid ventricular response: Status: Acute Assessment and Plan: Atrial fibrillation with borderline rate control. Blood pressure is improved now. Can start Lopressor 12.5 mg p.o. q.6 hours. Also digoxin 0.25 mg x 2 doses q.6 hours. Continue amiodarone drip for now, this is only for rate control. Overall her health status has improved compared to yesterday. Creatinine is improved. Blood pressure is improved. (2) (HFpEF) heart failure with preserved ejection fraction: Status: Acute Assessment and Plan: Heart failure preserved ejection fracture predominantly right-sided heart failure with significant RV enlargement significant pulmonary hypertension. Gentle diuresis with Lasix 20 mg. Continue rate control as above. Continue treat underlying sepsis aggressively. Overall prognosis still remains guarded. Out of bed to chair if possible later today. Will follow with you Fall Risk Details Current Medications: Current Medications Aspirin (Aspirin Enteric Coated 81 Mg Tablet.) 81 mg PO DAILY [facility] Last Admin: 10/03/21 11:22 Dose: 81 mg Documented by: Dextrose (Dextrose 50 % 25 Gm/50 Ml Vial) 25 gm IVPUSH Q15M PRN; Protocol PRN Reason: per Hypoglycemia Standing Ord. Fentanyl (Fentanyl Citrate/Pf 100 Mcg/2 Ml Vial) 25 mcg IVPUSH Q1H PRN; Protocol PRN Reason: dressing changes Last Admin: 10/03/21 02:36 Dose: 25 mcg Documented by: Glucose (Glucose Gel 15 Gm Gel..Gram.) 15 gm PO Q15M PRN; Protocol PRN Reason: per Hypoglycemia Standing Ord. Cefepime HCl 1 gm/ Sodium (Chloride) 50 mls @ 100 mls/hr IV Q12H [facility] Last Admin: 10/03/21 11:37 Dose: 100 mls/hr Documented by: Sodium Chloride (Ns) 1,000 mls @ 50 mls/hr IVCONT .Q20H [facility] Last Admin: 10/02/21 19:54 Dose: 50 mls/hr Documented by: Vancomycin HCl 750 mg/ Sodium (Chloride) 265 mls @ 265 mls/hr IV Q24H [facility] Last Infusion: 10/03/21 05:19 Dose: Infused Documented by: Amiodarone HCl 900 mg/ Sodium (Chloride) 518 mls @ 34.533 mls/hr IVCONT .Q15H1M [facility]; Protocol Last Infusion: 10/02/21 20:33 Dose: 0.5 mg/min, 17.27 mls/hr Documented by: Insulin Glargine (Insulin Glargine,Hum.Rec.Anlog 100 Unit/Ml 10 Ml Vial) 10 unit SUBCUT BEDTIME [facility] Last Admin: 10/03/21 01:26 Dose: 10 unit Documented by: Insulin Human Lispro (Insulin Lispro 100 Unit/Ml 3 Ml Vial) 0 unit SUBCUT QIDACHS [facility]; Protocol Last Admin: 10/03/21 11:41 Dose: Not Given Documented by: Melatonin (Melatonin 3 Mg Tablet) 6 mg PO BEDTIME PRN PRN Reason: Insomnia Metoprolol Tartrate (Metoprolol Tartrate 5 Mg/5 Ml Vial) 5 mg IVPUSH Q6H PRN PRN Reason: HR>125 Last Admin: 10/02/21 01:57 Dose: 5 mg Documented by: Midodrine (Midodrine Hcl 10 Mg Tablet) 10 mg PO TID [facility] Last Admin: 10/03/21 11:30 Dose: 10 mg Documented by: Pharmacy Consult (Consult Rx Perform Med Rec) 1 each MISCELLANE ONCE PRN PRN Reason: Consult order Pharmacy Consult (Consult Rx Vancomycin Dosing) 1 each MISCELLANE DAILY PRN PRN Reason: Consult order Senna (Sennosides 8.6 Mg Tablet) 17.2 mg PO BEDTIME PRN PRN Reason: Constipation Sodium Chloride (0.9 % Sodium Chloride Flush 3 Ml Syringe) 3 ml IVFLUSH QSHIFT [facility] Last Admin: 10/03/21 11:30 Dose: Not Given Documented by: Time Spent With Patient Time: Total time spent is greater than 50% in coordination of care (as documented) at patient's floor/unit and/or counseling patient: Time with patient: 25 - 35 minutes Progress Note: Quality Stroke Does the patient have a stroke diagnosis?: No Procedures Date of Service Date of Service: 10/03/21
--- NOTE | 2021-10-03 12:45 | MHC.CM.PN ---
CM MET WITH PT WHO REPORTS SHE LIVES WITH HER AND HAS NO SERVICES AT HOME PT REPORTS SHE NEEDS HELP BUT NO ONE WILL HELP HER, WHEN CM ASKED FOR CLARIFICATION, PT REPORTS NO ONE HELPS HER HERE OR AT HOME. SHE ASKED CM FOR A SIP OF WATER, CM FILLED HER CUP USING THE PITCHER ON THE BEDSIDE TABLE. PT REPORTS HOW CAN I GET A DRINK I ONLY HAVE ONE HAND. CM ASSISTED WITH A DRINK. OF NOTE, PT DID NOT HAVE DIFFICULTY DRINKING. CM WAS INFORMED THERE WAS A SPEECH EVAL PENDING BECAUSE THE PT HAD INDICATED SHE COULD NOT SWALLOW. PT INFORMED CM SHE COULD NOT SWALLOW BECAUSE SHE HAS NEVER BEEN ALLOWED TO. CM INFORMED PT HER FAMILY WOULD BE CONTACTED PT REPORTS HER DAUGHTER, JANIE IS THE BEST CONTACT. SHE DID PROVIDE A PHONE NUMBER HOWEVER IT WAS OUT OF SERVICE CM CALLED PTS , [facility] WHO PROVIDED BOTH A HOME AND CELL NUMBER FOR JANEI H: [phone] C: [phone] CM CALLED JANIE WHO REPORTS IT IS JUST THE PT AND YORDY AT HOME AND THEY HAVE NO SERVICES SHE REPORTS THE PT WAS HAVING MORE DIFFICULTY RN REFERRAL AND HER IS NOT ABLE TO PROVIDE THE ASSISTANCE NEEDED JANIE REPORTS THE PTS PCP IS JOSEP LOZADA AT THE [place] [facility] [place] SHE SAYS SHE DOES NOT THINK THE PT HAS A HCP CM INFORMED HER ONE WOULD BE ATTEMPTED WHEN THE PT WAS CLEARER JANIE REPORTS SHE HOPES THE PT CAN GO TO A STR AT DISCHARGE FOR A COUPLE MONTHS SHE REQUESTS A REFERRAL TO [place] AND REPORTS SHE WILL MEET WITH HER FATHER AND BROTHER LATER TODAY TO DISCUSS OTHER POSSIBLE FACILITIES CURRENT DC PLAN IS STR IF SUPPORTED BY PT EVAL VS. HOME WITH PT TRANSPORT TBD BY DISPO CHAIR VAN VS FAMILY
[2021-10-03 17:06] LABS: Glucose, Whole Blood 177 mg/dL (60-115)
[2021-10-03] MEDS: 0.9 % Sodium Chloride 1,000 ML 50 ML IVCONT (18:04)
[2021-10-03 21:06] LABS: Glucose, Whole Blood 158 mg/dL (60-115)
[2021-10-03 21:42] LABS: Vancomycin Trough 8.8 mcg/mL (10.0-20.0)
[2021-10-03] MEDS: Amiodarone HCL 900 MG in 0.9 % Sodium Chloride 500 ML 17.27 MG IVCONT (22:11)
[2021-10-04 03:07] VITALS: BP 109/60; PULSE 130; RESP 19; TEMP 36.1; O2SAT 96
[2021-10-04 07:42] LABS: Glucose, Whole Blood 174 mg/dL (60-115)
[2021-10-04 08:00] VITALS: BP 126/89; PULSE 144; RESP 20; TEMP 36.2; O2SAT 95
--- NOTE | 2021-10-04 09:41 | P.PNIM_ITS ---
Subjective Subjective Date of Service: 10/05/21 Interval History: Seen in f/u for sepsis, AFIB with RVR complicated by hypOtension. Hypotension has resolved. But tachycardia has persisted, she's back in AFIB with RVR Review of Systems no fever, confused Physical Exam Vital Signs: Vital Signs: Last Vital Signs Temp 97.1 F 10/04/21 08:00 Pulse 144 H 10/04/21 08:00 Resp 20 10/04/21 08:00 BP 126/89 10/04/21 08:00 Pulse Ox 95 10/04/21 08:00 Oxygen Flow Rate 4 10/01/21 13:30 BMI result Body Mass Index 43.5 Const: Other: General: AO X 1, very anxious Resp: CTA bilateral CVS: S1,S2,RRR GI: +BS, NT, no distention Skin: ulcers on legs Neuro: motor grossly intact Psych: appropriate affect Objective Data Active Medications Aspirin (Aspirin Enteric Coated 81 Mg Tablet.) 81 mg PO DAILY [facility] Last Admin: 10/03/21 11:22 Dose: 81 mg Documented by: SHARRI Dextrose (Dextrose 50 % 25 Gm/50 Ml Vial) 25 gm IVPUSH Q15M PRN; Protocol PRN Reason: per Hypoglycemia Standing Ord. Digoxin (Digoxin 0.125 Mg Tablet) 0.125 mg PO DAILY [facility] Fentanyl (Fentanyl Citrate/Pf 100 Mcg/2 Ml Vial) 25 mcg IVPUSH Q1H PRN; Protocol PRN Reason: dressing changes Last Admin: 10/03/21 02:36 Dose: 25 mcg Documented by: ELISABETH Glucose (Glucose Gel 15 Gm Gel..Gram.) 15 gm PO Q15M PRN; Protocol PRN Reason: per Hypoglycemia Standing Ord. Cefepime HCl 1 gm/ Sodium (Chloride) 50 mls @ 100 mls/hr IV Q12H [facility] Last Infusion: 10/03/21 22:50 Dose: 0 mls/hr Documented by: KENTRELL Sodium Chloride (Ns) 1,000 mls @ 50 mls/hr IVCONT .Q20H [facility] Last Admin: 10/03/21 18:04 Dose: 50 mls/hr Documented by: SHARRI Amiodarone HCl 900 mg/ Sodium (Chloride) 518 mls @ 34.533 mls/hr IVCONT .Q15H1M [facility]; Protocol Last Admin: 10/03/21 22:11 Dose: 0.5 mg/min, 17.27 mls/hr Documented by: KENTRELL Insulin Glargine (Insulin Glargine,Hum.Rec.Anlog 100 Unit/Ml 10 Ml Vial) 10 unit SUBCUT BEDTIME [facility] Last Admin: 10/03/21 22:12 Dose: Not Given Documented by: KENTRELL Non-Admin Reason: not eatingh Insulin Human Lispro (Insulin Lispro 100 Unit/Ml 3 Ml Vial) 0 unit SUBCUT Q IDACHS [facility]; Protocol Last Admin: 10/03/21 22:12 Dose: Not Given Documented by: KENTRELL Non-Admin Reason: not eatring Melatonin (Melatonin 3 Mg Tablet) 6 mg PO BEDTIME PRN PRN Reason: Insomnia Metoprolol Tartrate (Metoprolol Tartrate 5 Mg/5 Ml Vial) 5 mg IVPUSH Q6H PRN PRN Reason: HR>125 Last Admin: 10/02/21 01:57 Dose: 5 mg Documented by: HUY Metoprolol Tartrate (Metoprolol Tartrate 12.5 Mg Halftab) 12.5 mg PO Q6H [facility]; Protocol Midodrine (Midodrine Hcl 10 Mg Tablet) 10 mg PO TID [facility] Last Admin: 10/03/21 22:12 Dose: 10 mg Documented by: KENTRELL Pharmacy Consult (Consult Rx Perform Med Rec) 1 each MISCELLANE ONCE PRN PRN Reason: Consult order Pharmacy Consult (Consult Rx Vancomycin Dosing) 1 each MISCELLANE DAILY PRN PRN Reason: Consult order Senna (Sennosides 8.6 Mg Tablet) 17.2 mg PO BEDTIME PRN PRN Reason: Constipation Sodium Chloride (0.9 % Sodium Chloride Flush 3 Ml Syringe) 3 ml IVFLUSH QSHIFT [facility] Last Admin: 10/03/21 22:13 Dose: 3 ml Documented by: KENTRELL Labs CBC & Chem 7: 10/04/21 10:09 10/04/21 10:09 Labs: Laboratory Results - last 24 hr 10/03/21 10/03/21 10/03/21 11:07 16:40 21:01 POC Glucose 146 H 177 H 158 H Vancomycin Trough 10/03/21 10/04/21 21:05 07:14 POC Glucose 174 H Vancomycin Trough 8.8 L Microbiology Microbiology Results: Microbiology 10/03/21 00:00 Gram Stain - Final Leg - Right Routine Culture - Preliminary Culture in progress. 10/01/21 14:15 Blood Culture - Preliminary Blood - Venous No growth after 48 hours. 10/01/21 13:50 Blood Culture - Preliminary Blood - Venous No growth after 48 hours. Assessment and Plan (1) Sepsis: Status: Acute (2) Low blood pressure: Status: Acute (3) Atrial fibrillation with rapid ventricular response: Status: Acute (4) Hyperglycemia due to type 2 diabetes mellitus: Status: Acute Assessment and Plan: 81-year-old female with a past medical history of hypertension, diabetes, diastolic CHF, chronic AFib-not on anticoagulation, chronic lymphedema; presented to the hospital today with a chief complaint of bilateral leg swelling and pain.? Noted to have following conditions Septic shock/severe sepsis likely from bilateral leg cellulitis--Sepsis improved -source likely leg ulcers -cultures negative thus far -Continue broad spec Abx -Awaiting ID input -Midodrine to maintain BP AFib with rapid ventricular response likely precipitated by Sepsis.--persistent RVR -Digoxin -Metoprolol -Still on Amio -has chronic AFIB unlikely to respond to cardioversion -Starting on Amio drip on 10/02 -She has not wanted anticoagulation in past Acute on chronic diastolic CHF: clinically doesn't appear to be in failure, dc Lasix given low BP, cardiology to help with management PARKER: due to sepsis, resolved. Bilateral leg lymphedema/cellulitis:? Patient on broad-spectrum antibiotics IV vancomycin and cefepime.? Negative DVT Diabetes/hyperglycemia:??Insiluin Dysphagia--Speech consult Goals of care conversation with family DVT prophylaxis:? Lovenox Code status: DNI/DNI Care discussed with daughter over the phone Quality Stroke Does the patient have a stroke diagnosis?: No VTE Prior VTE?: No VTE Risk Level:: Medical - moderate - high VTE Device Contraindication: Treatment Not Indicated VTE Drug Contraindication: N/A - Med Ordered
[2021-10-04] MEDS: Midodrine HCl 10 MG TABLET PO ×3 (09:42→23:30)
[2021-10-04] MEDS: Digoxin 0.125 MG TABLET PO (09:44)
[2021-10-04] MEDS: Aspirin Enteric Coated 81 MG TABLET.DR PO (09:44)
[2021-10-04] MEDS: Insulin Lispro 100 UNIT/ML 3 ML VIAL SUBCUT ×3 (09:50→23:30)
[2021-10-04 10:51] LABS: Hematocrit 53.2 % (37.0-47.0); Hemoglobin 17.4 g/dl (12.0-16.0); Mean Corpuscular HGB Conc 32.7 g/dl (31.0-35.0); Mean Corpuscular Hemoglobin 36.4 pg (27.0-33.0); Mean Platelet Volume 12.2 fL (9.4-12.3); NRBC Pct Auto 0.2 /100WBC (0.0-0.2); Platelet Count 119 X10*3/uL (160-400); Red Blood Count 4.78 X10*6/uL (4.20-5.50); Red Cell Distribution Width 13.3 % (11.0-16.0); White Blood Count 10.2 X10*3/uL (4.8-10.8)
[2021-10-04 10:56] LABS: Mean Corpuscular Volume 111.3 fL (80.0-98.0)
[2021-10-04 11:09] LABS: Anion Gap 13 (12-20); Blood Urea Nitrogen 36 mg/dL (9-16); Calcium 9.3 mg/dL (8.4-10.2); Carbon Dioxide 23 mmol/L (22-29); Chloride 108 mmol/L (96-108); Creatinine Clr Calc Pharmacy 47.8; Estimated Glomerular Filt Rate 43; Glucose Random 210 mg/dL (60-115); Potassium 4.5 mmol/L (3.3-5.1); Sodium 139 mmol/L (135-145)
[2021-10-04 11:12] LABS: Glucose, Whole Blood 246 mg/dL (60-115)
[2021-10-04 11:58] VITALS: BP 152/87; PULSE 145; RESP 20; TEMP 36.3; O2SAT 93
[2021-10-04] MEDS: cefEPime HCl 1 GM in 0.9 % Sodium Chloride 50 ML IV ×2 (14:47→23:30)
[2021-10-04 15:02] VITALS: BP 112/77; PULSE 120; RESP 18; TEMP 36.1; O2SAT 94
[2021-10-04] MEDS: Metoprolol Tartrate 12.5 MG HALFTAB PO ×2 (15:36→23:30)
[2021-10-04] MEDS: 0.9 % Sodium Chloride 1,000 ML 50 ML IVCONT (16:33)
[2021-10-04 16:42] LABS: Glucose, Whole Blood 266 mg/dL (60-115)
[2021-10-04 19:44] VITALS: BP 160/57; PULSE 90; RESP 18; TEMP 36.1; O2SAT 90
[2021-10-04 21:14] LABS: Glucose, Whole Blood 204 mg/dL (60-115)
[2021-10-04 21:17] LABS: Vancomycin Trough 10.2 mcg/mL (10.0-20.0)
[2021-10-04] MEDS: Insulin Glargine,Hum.rec.anlog 100 UNIT/ML 10 ML VIAL 10 UNIT SUBCUT (23:30)
[2021-10-04] MEDS: 0.9 % Sodium Chloride Flush 3 ML SYRINGE IVFLUSH (23:31)
[2021-10-05] VITALS (9 sets, daily range): BP systolic 109–170; BP diastolic 82–100; PULSE 82–151; RESP 15–20; TEMP 36.1–36.7; O2SAT 87–98; BMI 39.1
[2021-10-05] MEDS: Metoprolol Tartrate 12.5 MG HALFTAB PO ×2 (02:37→09:06)
[2021-10-05] MEDS: Amiodarone HCL 900 MG in 0.9 % Sodium Chloride 500 ML 17.27 MG IVCONT (02:38)
[2021-10-05 07:51] LABS: Glucose, Whole Blood 158 mg/dL (60-115)
[2021-10-05] MEDS: 0.9 % Sodium Chloride Flush 3 ML SYRINGE IVFLUSH (09:06)
[2021-10-05] MEDS: Midodrine HCl 10 MG TABLET PO (09:06)
[2021-10-05] MEDS: Insulin Lispro 100 UNIT/ML 3 ML VIAL SUBCUT ×4 (09:06→20:17)
[2021-10-05] MEDS: Digoxin 0.125 MG TABLET PO (09:07)
[2021-10-05] MEDS: Aspirin Enteric Coated 81 MG TABLET.DR PO (09:07)
[2021-10-05] MEDS: Metoprolol Tartrate 5 MG/5 ML VIAL IVPUSH ×2 (09:21→22:20)
--- NOTE | 2021-10-05 10:02 | P.PNIM_ITS ---
Subjective Subjective Date of Service: 10/05/21 Interval History: Seen in f/u for sepsis, AFIB with RVR complicated by hypOtension. Doing better, BP up, HR down, less confused. Review of Systems no fever, confused Physical Exam Vital Signs: Vital Signs: Last Vital Signs Temp 98.1 F 10/05/21 07:44 Pulse 103 H 10/05/21 07:44 Resp 19 10/05/21 07:44 BP 160/82 H 10/05/21 07:44 Pulse Ox 92 10/05/21 07:44 Oxygen Flow Rate 4 10/01/21 13:30 BMI result Body Mass Index 39.1 Const: Other: General: AO X 1, very anxious Resp: CTA bilateral CVS: S1,S2,RRR GI: +BS, NT, no distention Skin: ulcers on legs Neuro: motor grossly intact Psych: appropriate affect Objective Data Active Medications Amiodarone HCl (Amiodarone Hcl 200 Mg Tablet) 200 mg PO BID [facility] Aspirin (Aspirin Enteric Coated 81 Mg Tablet.) 81 mg PO DAILY [facility] Last Admin: 10/05/21 09:07 Dose: 81 mg Documented by: DAYNA Dextrose (Dextrose 50 % 25 Gm/50 Ml Vial) 25 gm IVPUSH Q15M PRN; Protocol PRN Reason: per Hypoglycemia Standing Ord. Digoxin (Digoxin 0.125 Mg Tablet) 0.125 mg PO DAILY [facility] Last Admin: 10/05/21 09:07 Dose: 0.125 mg Documented by: DAYNA Fentanyl (Fentanyl Citrate/Pf 100 Mcg/2 Ml Vial) 25 mcg IVPUSH Q1H PRN; Protocol PRN Reason: dressing changes Last Admin: 10/03/21 02:36 Dose: 25 mcg Documented by: ELISABETH Glucose (Glucose Gel 15 Gm Gel..Gram.) 15 gm PO Q15M PRN; Protocol PRN Reason: per Hypoglycemia Standing Ord. Cefepime HCl 1 gm/ Sodium (Chloride) 50 mls @ 100 mls/hr IV Q12H [facility] Last Infusion: 10/05/21 00:01 Dose: 0 mls/hr Documented by: ANTOIC Insulin Glargine (Insulin Glargine,Hum.Rec.Anlog 100 Unit/Ml 10 Ml Vial) 10 unit SUBCUT BEDTIME [facility] Last Admin: 10/04/21 23:30 Dose: 10 unit Documented by: JENNIFER Insulin Human Lispro (Insulin Lispro 100 Unit/Ml 3 Ml Vial) 0 unit SUBCUT QIDACHS [facility]; Protocol Last Admin: 10/05/21 09:06 Dose: 2 unit Documented by: DAYNA Melatonin (Melatonin 3 Mg Tablet) 6 mg PO BEDTIME PRN PRN Reason: Insomnia Metoprolol Tartrate (Metoprolol Tartrate 5 Mg/5 Ml Vial) 5 mg IVPUSH Q6H PRN PRN Reason: HR>125 Last Admin: 10/05/21 09:21 Dose: 5 mg Documented by: DAYNA Metoprolol Tartrate (Metoprolol Tartrate 25 Mg Tablet) 25 mg PO Q6H [facility]; Protocol Midodrine (Midodrine Hcl 5 Mg Tablet) 5 mg PO BID [facility] Pharmacy Consult (Consult Rx Perform Med Rec) 1 each MISCELLANE ONCE PRN PRN Reason: Consult order Pharmacy Consult (Consult Rx Vancomycin Dosing) 1 each MISCELLANE DAILY PRN PRN Reason: Consult order Senna (Sennosides 8.6 Mg Tablet) 17.2 mg PO BEDTIME PRN PRN Reason: Constipation Sodium Chloride (0.9 % Sodium Chloride Flush 3 Ml Syringe) 3 ml IVFLUSH [facility] Last Admin: 10/05/21 09:06 Dose: 3 ml Documented by: DAYNA Labs CBC & Chem 7: 10/04/21 10:09 10/04/21 10:09 Labs: Laboratory Results - last 24 hr 10/04/21 10/04/21 10/04/21 10:09 10:09 11:06 MCV 111.3 H MCH 36.4 H MCHC 32.7 RDW 13.3 Plt Count 119 L MPV 12.2 Absolute Nucleated RBC 0.020 H Nucleated RBC % (auto) 0.2 Anion Gap 13 Estim Creat Clear Calc 47.8 Estimated GFR 43 POC Glucose 246 H Random Glucose 210 H Calcium 9.3 Vancomycin Trough 10/04/21 10/04/21 10/04/21 16:39 20:50 21:10 MCV MCH MCHC RDW Plt Count MPV Absolute Nucleated RBC Nucleated RBC % (auto) Anion Gap Estim Creat Clear Calc Estimated GFR POC Glucose 266 H 204 H Random Glucose Calcium Vancomycin Trough 10.2 10/05/21 07:47 MCV MCH MCHC RDW Plt Count MPV Absolute Nucleated RBC Nucleated RBC % (auto) Anion Gap Estim Creat Clear Calc Estimated GFR POC Glucose 158 H Random Glucose Calcium Vancomycin Trough Microbiology Microbiology Results: Microbiology 10/03/21 00:00 Gram Stain - Final Leg - Right Routine Culture - Preliminary Culture in progress. Assessment and Plan (1) Sepsis: Status: Acute (2) Low blood pressure: Status: Acute (3) Atrial fibrillation with rapid ventricular response: Status: Acute (4) Hyperglycemia due to type 2 diabetes mellitus: Status: Acute Assessment and Plan: 81-year-old female with a past medical history of hypertension, diabetes, diasto lic CHF, chronic AFib-not on anticoagulation, chronic lymphedema; presented to the hospital today with a chief complaint of bilateral leg swelling and pain.? Noted to have following conditions Septic shock/severe sepsis likely from bilateral leg cellulitis--Sepsis improved -source likely leg ulcers -cultures negative thus far -Continue broad spec Abx --has been been on Cefepime and Vanco, WBC is normal -Change to oral Doxycyline for ulcer management. -Awaiting ID input -Midodrine--reduce to 5 bid AFib with rapid ventricular response likely precipitated by Sepsis.--persistent RVR -Digoxin -Metoprolol increase to 25 q6 -Change to PO Amio -has chronic AFIB unlikely to respond to cardioversion -Starting on Amio drip on 10/02 -She has not wanted anticoagulation in past Acute on chronic diastolic CHF: clinically doesn't appear to be in failure, dc Lasix given low BP, cardiology to help with management PARKER: due to sepsis, resolved. Bilateral leg lymphedema/cellulitis:? Patient on broad-spectrum antibiotics IV vancomycin and cefepime.? Negative DVT Diabetes/hyperglycemia:??Insiluin Dysphagia--Speech consult Goals of care conversation with family DVT prophylaxis:? Lovenox Code status: DNI/DNI Care discussed with daughter over the phone Quality Stroke Does the patient have a stroke diagnosis?: No VTE Prior VTE?: No VTE Risk Level:: Medical - moderate - high VTE Device Contraindication: Treatment Not Indicated VTE Drug Contraindication: N/A - Med Ordered
[2021-10-05] MEDS: Metoprolol Tartrate 25 MG TABLET PO ×3 (10:33→20:16)
[2021-10-05] MEDS: Amiodarone HCL 200 MG TABLET PO ×2 (10:33→20:16)
[2021-10-05 11:23] LABS: Glucose, Whole Blood 178 mg/dL (60-115)
--- NOTE | 2021-10-05 11:41 | MHC.CLN ---
F/U PT WITH POOR PO 0-25% VALIDATION LEADER TO EVAL FOR SWALLOWING DIFFICULTIES REPORTED PER PT DIET RX: 2000DM 2GM NA-APPROPRIATE RECOMMEND ADDING GLUCERNA BID TO INCREASE KCALS NOTED LIZ Lopez; PT WITH CELLULITIS ON BLE NO PRESSURE INJURIES NOTED AT THIS TIME MONITOR PO INTAKE [facility]
--- NOTE | 2021-10-05 11:55 | PM.PNCARD ---
Subjective Subjective Date of Service: 10/05/21 Principal diagnosis: AF,Sepsis, CHF Interval history: Denies any cardiac symptoms. Review of Systems Review of Systems Yes all other systems are reviewed and are negative Cardiovascular: Reports as per HPI, Reports no additional cardiovascular complaints, Denies acrocyanosis, Denies cool extremities, Denies painful fingertips, Denies chest pain, Denies chest pain at rest, Denies diaphoresis, Denies syncope, Denies irregular heart rhythm, Denies claudication, Denies leg edema, Denies lightheadedness, Denies palpitations and Denies dyspnea Respiratory: Denies dyspnea Denies syncope Endocrine: Denies palpitations Physical Exam Vital Signs: Last Vital Signs Temp 97.1 F 10/05/21 11:04 Pulse 107 H 10/05/21 11:04 Resp 19 10/05/21 11:04 BP 157/86 H 10/05/21 11:04 Pulse Ox 92 10/05/21 11:04 Oxygen Flow Rate 4 10/01/21 13:30 BMI result Body Mass Index 39.1 Const General: no acute distress [facility] Other: Unremarkable Neck Neck: Yes normal visual inspection Chest Chest palpation & inspection: normal inspection of the chest Resp Auscultation: no crackles and no wheezes Cardio Palpation: normal PMI Heart sounds: S1 normal heart sound present, S2 normal heart sound present, no gallops, no murmurs and no rubs GI Palpation (GI): Soft to palpation Back/Spine/Pelvis Other: unremarkable Skin Lesions: other Neuro Cranial nerves: Yes Other cranial nerve findings present Extrem General: Yes other Psych Mental Status: other Objective Labs and Meds Result diagrams: 10/04/21 10:09 10/04/21 10:09 Lab results: Laboratory Results - last 24 hr 10/04/21 10/04/21 10/04/21 16:39 20:50 21:10 POC Glucose 266 H 204 H Vancomycin Trough 10.2 10/05/21 10/05/21 07:47 11:11 POC Glucose 158 H 178 H Vancomycin Trough Progress Note: A&P Assessment and plan (1) Atrial fibrillation with rapid ventricular response: Status: Acute (2) Acute on chronic diastolic (congestive) heart failure: Status: Acute Assessment and Plan: Difficult to control atrial fibrillation rapid rate. Already on beta-blockers, digoxin as well as amiodarone drip. May be continued. It seems that she had refused anticoagulation and I discussed this again and she does not want to take. Hence cannot do CANDIDO or cardioversion. Per medication reconciliation, takes Atenolol 100 mg b.i.d. at home. Hence once the blood pressure improves, hopefully we can go back on her home regimen. Otherwise, diuretics as needed. Fall Risk Details Current Medications: Current Medications Amiodarone HCl (Amiodarone Hcl 200 Mg Tablet) 200 mg PO BID [facility] Last Admin: 10/05/21 10:33 Dose: 200 mg Documented by: Aspirin (Aspirin Enteric Coated 81 Mg Tablet.) 81 mg PO DAILY [facility] Last Admin: 10/05/21 09:07 Dose: 81 mg Documented by: Dextrose (Dextrose 50 % 25 Gm/50 Ml Vial) 25 gm IVPUSH Q15M PRN; Protocol PRN Reason: per Hypoglycemia Standing Ord. Digoxin (Digoxin 0.125 Mg Tablet) 0.125 mg PO DAILY [facility] Last Admin: 10/05/21 09:07 Dose: 0.125 mg Documented by: Fentanyl (Fentanyl Citrate/Pf 100 Mcg/2 Ml Vial) 25 mcg IVPUSH Q1H PRN; Protocol PRN Reason: dressing changes Last Admin: 10/03/21 02:36 Dose: 25 mcg Documented by: Glucose (Glucose Gel 15 Gm Gel..Gram.) 15 gm PO Q15M PRN; Protocol PRN Reason: per Hypoglycemia Standing Ord. Cefepime HCl 1 gm/ Sodium (Chloride) 50 mls @ 100 mls/hr IV Q12H [facility] Last Infusion: 10/05/21 00:01 Dose: Infused Documented by: Insulin Glargine (Insulin Glargine,Hum.Rec.Anlog 100 Unit/Ml 10 Ml Vial) 10 unit SUBCUT BEDTIME [facility] Last Admin: 10/04/21 23:30 Dose: 10 unit Documented by: Insulin Human Lispro (Insulin Lispro 100 Unit/Ml 3 Ml Vial) 0 unit SUBCUT QIDACHS [facility]; Protocol Last Admin: 10/05/21 09:06 Dose: 2 unit Documented by: Melatonin (Melatonin 3 Mg Tablet) 6 mg PO BEDTIME PRN PRN Reason: Insomnia Metoprolol Tartrate (Metoprolol Tartrate 5 Mg/5 Ml Vial) 5 mg IVPUSH Q6H PRN PRN Reason: HR>125 Last Admin: 10/05/21 09:21 Dose: 5 mg Documented by: Metoprolol Tartrate (Metoprolol Tartrate 25 Mg Tablet) 25 mg PO Q6H [facility]; Protocol Last Admin: 10/05/21 10:33 Dose: 12.5 mg Documented by: Midodrine (Midodrine Hcl 5 Mg Tablet) 5 mg PO BID [facility] Pharmacy Consult (Consult Rx Perform Med Rec) 1 each MISCELLANE ONCE PRN PRN Reason: Consult order Pharmacy Consult (Consult Rx Vancomycin Dosing) 1 each MISCELLANE DAILY PRN PRN Reason: Consult order Senna (Sennosides 8.6 Mg Tablet) 17.2 mg PO BEDTIME PRN PRN Reason: Constipation Sodium Chloride (0.9 % Sodium Chloride Flush 3 Ml Syringe) [facility] Last Admin: 10/05/21 09:06 Dose: 3 ml Documented by: Time Spent With Patient Time: Total time spent is greater than 50% in coordination of care (as documented) at patient's floor/unit and/or counseling patient: Time with patient: less than 15 minutes Progress Note: Quality Stroke Does the patient have a stroke diagnosis?: No Procedures Date of Service Date of Service: 10/05/21
--- NOTE | 2021-10-05 12:38 | HO.WOUNDCONS ---
History of Present Illness Data of Consult Service Date: 10/05/21 Requesting physician: Vargas Mcallister Primary Care Provider: Unknown Physician HPI Reason for consult: lower leg wounds 81-year-old female who came into the hospital with shortness of breath and weeping legs and associated leg swelling. She has AFib. Her BNP was 440. She was admitted to the intensive care unit for right-sided heart failure. She had lactic acidosis. She tested negative for SARS-CoV-2. She was not able to take diuretics because of low blood pressure. She was on midodrine. At the time of this consultation, she [place] [facility] [place] The patient is a poor historian. She denies shortness of breath and fever. She denies itchiness in her legs. Review of Systems Review of Systems: Yes Unobtainable due to mental condition [facility] Medical History (HFpEF) heart failure with preserved ejection fraction Chronic atrial fibrillation Diabetes mellitus HTN (hypertension) Family History Father No problems noted. Mother CVD (cardiovascular disease) Social History Alcohol intake: never service: No Current occupational status: unemployed Meds Allergies Allergy/AdvReac Type Severity Reaction Status Date / Time acetaminophen [From VICODIN] Allergy Unknown UNKNOWN Verified 10/01/21 15:41 acyclovir [ACYCLOVIR] Allergy Unknown HALLUCINATI Verified 10/01/21 15:41 ONS adhesive tape Allergy Unknown ALL TAPE Verified 10/01/21 15:41 SKIN EROSION amlodipine [From NORVASC] Allergy Unknown PEADAL Verified 10/01/21 15:41 EDEMA fluconazole [From DIFLUCAN] Allergy Unknown RASH/SWELLI Verified 10/01/21 15:41 NG hydralazine [HYDRALAZINE] Allergy Unknown CONFUSION Verified 10/01/21 15:41 hydrochlorothiazide Allergy Unknown UNKNOWN Verified 10/01/21 15:41 [HYDROCHLOROTHIAZIDE] hydrocodone [From VICODIN] Allergy Unknown SWELLING/ED Verified 10/01/21 15:41 CARMINA Iodinated Contrast Media Allergy Unknown ON Verified 10/01/21 15:41 [Iodinated Contrast Media - GLUCOPHAGE IV Dye] lisinopril [LISINOPRIL] Allergy Unknown LEG CRAMPS Verified 10/01/21 15:41 losartan [From COZAAR] Allergy Unknown UNKNOWN Verified 10/01/21 15:41 meperidine [From DEMEROL] Allergy Unknown ITCHING/PRU Verified 10/01/21 15:41 RITIS oxycodone [From PERCOCET] Allergy Unknown HALLUCINAT Verified 10/01/21 15:41 IONS simvastatin [SIMVASTATIN] Allergy Unknown PAIN IN Verified 10/01/21 15:41 FEET+UP LEGS Tetanus Vaccines and Toxoid Allergy Unknown ARMS SWELL Verified 10/01/21 15:41 [Tetanus Vaccines & Toxoid] valsartan [VALSARTAN] Allergy Unknown RINGING IN Verified 10/01/21 15:41 EARS Adhesive Tape Allergy Unknown Unknown Uncoded 10/01/21 15:41 IVP dye Allergy Unknown Unknown Uncoded 10/01/21 15:41 Tetanus Allergy Unknown Unknown Uncoded 10/01/21 15:41 Vicodin Allergy Unknown Unknown Uncoded 10/01/21 15:41 Active Medications: Current Medications Amiodarone HCl (Amiodarone Hcl 200 Mg Tablet) 200 mg PO BID [facility] Last Admin: 10/05/21 10:33 Dose: 200 mg Documented by: Aspirin (Aspirin Enteric Coated 81 Mg Tablet.) 81 mg PO DAILY [facility] Last Admin: 10/05/21 09:07 Dose: 81 mg Documented by: Dextrose (Dextrose 50 % 25 Gm/50 Ml Vial) 25 gm IVPUSH Q15M PRN; Protocol PRN Reason: per Hypoglycemia Standing Ord. Digoxin (Digoxin 0.125 Mg Tablet) 0.125 mg PO DAILY [facility] Last Admin: 10/05/21 09:07 Dose: 0.125 mg Documented by: Fentanyl (Fentanyl Citrate/Pf 100 Mcg/2 Ml Vial) 25 mcg IVPUSH Q1H PRN; Protocol PRN Reason: dressing changes Last Admin: 10/03/21 02:36 Dose: 25 mcg Documented by: Glucose (Glucose Gel 15 Gm Gel..Gram.) 15 gm PO Q15M PRN; Protocol PRN Reason: per Hypoglycemia Standing Ord. Cefepime HCl 1 gm/ Sodium (Chloride) 50 mls @ 100 mls/hr IV Q12H [facility] Last Infusion: 10/05/21 00:01 Dose: Infused Documented by: Insulin Glargine (Insulin Glargine,Hum.Rec.Anlog 100 Unit/Ml 10 Ml Vial) 10 unit SUBCUT BEDTIME [facility] Last Admin: 10/04/21 23:30 Dose: 10 unit Documented by: Insulin Human Lispro (Insulin Lispro 100 Unit/Ml 3 Ml Vial) 0 unit SUBCUT QIDACHS [facility]; Protocol Last Admin: 10/05/21 09:06 Dose: 2 unit Documented by: Melatonin (Melatonin 3 Mg Tablet) 6 mg PO BEDTIME PRN PRN Reason: Insomnia Metoprolol Tartrate (Metoprolol Tartrate 5 Mg/5 Ml Vial) 5 mg IVPUSH Q6H PRN PRN Reason: HR>125 Last Admin: 10/05/21 09:21 Dose: 5 mg Documented by: Metoprolol Tartrate (Metoprolol Tartrate 25 Mg Tablet) 25 mg PO Q6H [facility]; Protocol Last Admin: 10/05/21 10:33 Dose: 12.5 mg Documented by: Midodrine (Midodrine Hcl 5 Mg Tablet) 5 mg PO BID [facility] Pharmacy Consult (Consult Rx Perform Med Rec) 1 each MISCELLANE ONCE PRN PRN Reason: Consult order Pharmacy Consult (Consult Rx Vancomycin Dosing) 1 each MISCELLANE DAILY PRN PRN Reason: Consult order Senna (Sennosides 8.6 Mg Tablet) 17.2 mg PO BEDTIME PRN PRN Reason: Constipation Sodium Chloride (0.9 % Sodium Chloride Flush 3 Ml Syringe) 3 ml IVFLUSH QSHIFT [facility] Last Admin: 10/05/21 09:06 Dose: 3 ml Documented by: Home Medications Medication Instructions Recorded Confirmed Last Taken Type aspirin 81 mg tablet,delayed 81 mg PO DAILY 08/13/20 10/01/21 Unknown History release (Adult Low Dose Aspirin) furosemide 20 mg tablet (Lasix) 20 mg PO DAILY 08/13/20 10/01/21 Unknown History glyburide 5 mg tablet 5 mg PO DAILY 08/13/20 10/01/21 Unknown History metformin 500 mg tablet 500 mg PO DAILY 08/13/20 10/01/21 Unknown History atenolol 25 mg tablet 100 mg PO BID tab 02/12/21 10/01/21 Unknown History Physical Exam Vital Signs and Narrative: Vital Signs: Last Vital Signs Temp 97.1 F 10/05/21 11:04 Pulse 107 H 10/05/21 11:04 Resp 19 10/05/21 11:04 BP 157/86 H 10/05/21 11:04 Pulse Ox 92 10/05/21 11:04 Oxygen Flow Rate 4 10/01/21 13:30 BMI result Body Mass Index 39.1 One to 2+ pitting edema is noted in the bilateral lower extremities. There is erythema bilaterally not associated with cellulitis however warmth to touch on the left lower extremity is noted. There is copious yellow serous drainage on the pillow and on the alginate wrappings with roll or gauze. IV antibiotic is infusing which appears to be cefepime. Respiratory effort is comfortable. No stridor. Answers orientation questions inappropriately. Results Labs CBC and Chem 7: 10/04/21 10:09 10/04/21 10:09 Labs: Laboratory Results - last 24 hr 10/04/21 10/04/21 10/04/21 16:39 20:50 21:10 POC Glucose 266 H 204 H Vancomycin Trough 10.2 10/05/21 10/05/21 07:47 11:11 POC Glucose 158 H 178 H Vancomycin Trough Assessment and Plan (1) Acute on chronic diastolic (congestive) heart failure: Status: Acute Consider unilateral Johnny wrap for gentle compression with the idea that this can be removed she become short of breath with fluid immobilization. I would be inclined to start with the right lower extremity given that there is warmth on the left lower extremity. If she in fact has evolving cellulitis of the left lower extremity refractory to cefepime, hospitalist intervention would be required. Zinc to intact dermis can be helpful to preserve epidermis at risk prevent maceration. A supra absorber can be helpful but is usually not available on the floor. The only recommendation in this regard but increase the frequency of dressing changes of possible. Consider fluid restriction slow/diuretic use if clinically indicated or appropriate.
--- NOTE | 2021-10-05 15:47 | PC.NURSE ---
Dr. Del Toro aware of patient having IVF infiltrate on right and 2-3+edema to LUE. unable to obtain IV access. Suggested US midline. MD will change Abx over to po. and dc IVF. Report called to S3 and patient transported to [id number].
--- NOTE | 2021-10-05 15:50 | MHC.SL.SWA ---
Speech Pathologist Impression: Within Functional Limits Risk of Aspiration Due to: Dysphasia Diet Status: No Change Liquid Consistency and Strategies for Safe Swallow: Liquid Intake Recommendation: Thin Liquid Intake Strategies: Unrestricted Solid Food Consistency: Dietary Recommendations: Regular Additional Modifications to Solid Foods: Oral Medication Intake: Whole with Liquid Compensatory Strategies and Precautions to be Taken for Safe Swallow: Sitting Upright (90 deg) Alternate Liquids/Solids Supervision While Eating and Drinking for Safe Swallow: Intermittent Supervision Foods to Avoid: Swallowing Recommended Treatments: Recommendation for Speech: NA:Typical Evaluation Comment: Pt presents with Oral and Pharyngeal swallow phases wnl on all consistencies presented. Pt presents as anxious and mildly confused: e.g. expressed distaste of all food presented in today's eval, but then requested the remainder of the food be left with her after the eval. Pt will need encouragement to eat and encouragement to select preferred foods from menu options given daily. Recommend D/C from speech at this time. Recommendation to continue on Regular diabetic diet w/thin liquids sent via secure text to MD, Thread Reeler, Dietary. Frequency/Duration: Date Range for Service Req: Timeline to reassess: Machine Engineer Clinican/Clinical Fellow: No Supervisory Statement: I have reviewed and agree with the student/clinical fellow's documentation: N/A Speech Language Pathologist: Radha Frances M.A., CCC-EDITOR IN CHIEF NEWSPAPER
--- NOTE | 2021-10-05 16:06 | P.CNID_ITS ---
History of Present Illness Data of Consult Service Date: 10/05/21 Requesting physician: Abilio Arora Primary Care Provider: Unknown Physician HPI Reason for consult: redness bilateral legs She presents with weakness and rapid heart rate She has atrial fibrillation She was noticed to have some bilateral erythema legs She has been seen by Wound Care She has no fever or chills Review of Systems Verdana 4l Review of Systems: Yes all other systems are reviewed and Verdana 4d are negative [facility] Past Medical History Medical History (Updated 10/21/21 @ 00:02 by Michell Mark) (HFpEF) heart failure with preserved ejection fraction Chronic atrial fibrillation Diabetes mellitus HTN (hypertension) Hyperglycemia due to type 2 diabetes mellitus Redness and swelling of lower leg Family History Family History Father No problems noted. Mother CVD (cardiovascular disease) Family history: reviewed and not pertinent Social History Social History Alcohol intake: never service: No Current occupational status: unemployed Meds Allergies Allergy/AdvReac Type Severity Reaction Status Date / Time acetaminophen [From Allergy Unknown UNKNOWN Verified 10/01/21 15:41 VICODIN] acyclovir [ACYCLOVIR] Allergy Unknown HALLUCINATI Verified 10/01/21 15:41 ONS adhesive tape Allergy Unknown ALL TAPE Verified 10/01/21 15:41 SKIN EROSION amlodipine [From Allergy Unknown PEADAL Verified 10/01/21 15:41 NORVASC] EDEMA fluconazole [From Allergy Unknown RASH/SWELLI Verified 10/01/21 15:41 DIFLUCAN] NG hydralazine Allergy Unknown CONFUSION Verified 10/01/21 15:41 [HYDRALAZINE] hydrochlorothiazide Allergy Unknown UNKNOWN Verified 10/01/21 15:41 [HYDROCHLOROTHIAZIDE] hydrocodone [From Allergy Unknown SWELLING/ED Verified 10/01/21 15:41 VICODIN] CARMINA Iodinated Contrast Allergy Unknown ON Verified 10/01/21 15:41 Media [Iodinated Contrast GLUCOPHAGE Media - IV Dye] lisinopril Allergy Unknown LEG CRAMPS Verified 10/01/21 15:41 [LISINOPRIL] losartan [From COZAAR] Allergy Unknown UNKNOWN Verified 10/01/21 15:41 meperidine [From Allergy Unknown ITCHING/PRU Verified 10/01/21 15:41 DEMEROL] RITIS oxycodone [From Allergy Unknown HALLUCINAT Verified 10/01/21 15:41 PERCOCET] IONS simvastatin Allergy Unknown PAIN IN Verified 10/01/21 15:41 [SIMVASTATIN] FEET+UP LEGS Tetanus Vaccines and Allergy Unknown ARMS SWELL Verified 10/01/21 15:41 Toxoid [Tetanus Vaccines & Toxoid] valsartan [VALSARTAN] Allergy Unknown RINGING IN Verified 10/01/21 15:41 EARS Adhesive Tape Allergy Unknown Unknown Uncoded 10/01/21 15:41 IVP dye Allergy Unknown Unknown Uncoded 10/01/21 15:41 Tetanus Allergy Unknown Unknown Uncoded 10/01/21 15:41 Vicodin Allergy Unknown Unknown Uncoded 10/01/21 15:41 Active Medications: Current Medications Amiodarone HCl (Amiodarone Hcl 200 Mg Tablet) 200 mg PO BID [facility] Last Admin: 10/05/21 10:33 Dose: 200 mg Documented by: Aspirin (Aspirin Enteric Coated 81 Mg Tablet.) 81 mg PO DAILY [facility] Last Admin: 10/05/21 09:07 Dose: 81 mg Documented by: Dextrose (Dextrose 50 % 25 Gm/50 Ml Vial) 25 gm IVPUSH Q15M PRN; Protocol PRN Reason: per Hypoglycemia Standing Ord. Digoxin (Digoxin 0.125 Mg Tablet) 0.125 mg PO DAILY [facility] Last Admin: 10/05/21 09:07 Dose: 0.125 mg Documented by: Doxycycline Hyclate (Doxycycline Hyclate 100 Mg Tablet) 100 mg PO Q12H [facility] Fentanyl (Fentanyl Citrate/Pf 100 Mcg/2 Ml Vial) 25 mcg IVPUSH Q1H PRN; Protocol PRN Reason: dressing changes Last Admin: 10/03/21 02:36 Dose: 25 mcg Documented by: Glucose (Glucose Gel 15 Gm Gel..Gram.) 15 gm PO Q15M PRN; Protocol PRN Reason: per Hypoglycemia Standing Ord. Insulin Glargine (Insulin Glargine,Hum.Rec.Anlog 100 Unit/Ml 10 Ml Vial) 10 unit SUBCUT BEDTIME [facility] Last Admin: 10/04/21 23:30 Dose: 10 unit Documented by: Insulin Human Lispro (Insulin Lispro 100 Unit/Ml 3 Ml Vial) 0 unit SUBCUT QIDACHS [facility]; Protocol Last Admin: 10/05/21 13:35 Dose: 2 unit Documented by: Melatonin (Melatonin 3 Mg Tablet) 6 mg PO BEDTIME PRN PRN Reason: Insomnia Metoprolol Tartrate (Metoprolol Tartrate 5 Mg/5 Ml Vial) 5 mg IVPUSH Q6H PRN PRN Reason: HR>125 Last Admin: 10/05/21 09:21 Dose: 5 mg Documented by: Metoprolol Tartrate (Metoprolol Tartrate 25 Mg Tablet) 25 mg PO Q6H [facility]; Protocol Last Admin: 10/05/21 10:33 Dose: 12.5 mg Documented by: Midodrine (Midodrine Hcl 5 Mg Tablet) 5 mg PO BID [facility] Pharmacy Consult (Consult Rx Perform Med Rec) 1 each MISCELLANE ONCE PRN PRN Reason: Consult order Pharmacy Consult (Consult Rx Vancomycin Dosing) 1 each MISCELLANE DAILY PRN PRN Reason: Consult order Senna (Sennosides 8.6 Mg Tablet) 17.2 mg PO BEDTIME PRN PRN Reason: Constipation Sodium Chloride (0.9 % Sodium Chloride Flush 3 Ml Syringe) 3 ml IVFLUSH [facility] Last Admin: 10/05/21 15:43 Dose: Not Given Documented by: Home Medications Medication Instructions Recorded Confirmed Last Taken Type aspirin 81 mg 81 mg PO DAILY 08/13/20 10/01/21 Unknown History tablet,delayed release (Adult Low Dose Aspirin) furosemide 20 mg 20 mg PO DAILY 08/13/20 10/01/21 Unknown History tablet (Lasix) glyburide 5 mg 5 mg PO DAILY 08/13/20 10/01/21 Unknown History tablet metformin 500 mg 500 mg PO DAILY 08/13/20 10/01/21 Unknown History tablet atenolol 25 mg 100 mg PO BID 02/12/21 10/01/21 Unknown History tablet tab Physical Exam Verdana 4l Vital Signs: Verdana 4d Verdana 4d Vital Signs: Verdana 4d Verdana 4Bd Last Vital Signs Verdana 4d 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 4d Temp 97 F 10/05/21 15:16 Fork Truck Driver New 4d Pulse 110 H 10/05/21 15:16 [employer]ork Truck Driver New 4d Resp 20 10/05/21 15:16 BP 170/100 H 10/05/21 15:16 Pulse Ox 96 10/05/21 15:16 Oxygen Flow Rate 4 01/06/22 13:30 BMI result Body Mass Index 39.1 Const: General: cooperative Eyes: General: appearance normal, both eyes and all related structures Resp: Effort & Inspection: normal respiratory effort Cardio: Rate: regular rate Rhythm: regular rhythm GI: Palpation (GI): Soft to palpation and nontender Extrem: Other: bilateral erythema legs with venous stasis Results Labs CBC & Chem 7: 10/13/21 05:15 10/13/21 05:15 Microbiology Microbiology Results: Microbiology 10/03/21 00:00 Leg - Right Gram Stain - Final 10/03/21 00:00 Leg - Right Routine Culture - Preliminary Gram negative yolie 10/01/21 14:15 Blood - Venous Blood Culture - Preliminary No growth after 48 hours. 10/01/21 13:50 Blood - Venous Blood Culture - Preliminary No growth after 48 hours. Assessment and Plan (1) Acute on chronic diastolic (congestive) heart failure: Status: Resolved (2) Redness and swelling of lower leg: Status: Acute She seems to have chronic venous stasis changes and erythema Plan Elevation and compression of legs Po Doxycycline for 10 days
--- NOTE | 2021-10-05 16:06 | W.PM.IDCN ---
History of Present Illness Data of Consult Service Date: 10/05/21 Requesting physician: Abilio Del Toro Primary Care Provider: Unknown Physician HPI Reason for consult: redness bilateral legs She presents with weakness and rapid heart rate She has atrial fibrillation She was noticed to have some bilateral erythema legs She has been seen by Wound Care She has no fever or chills Review of Systems Review of Systems: Yes all other systems are reviewed and are negative [facility] Past Medical History Medical History (Updated 10/21/21 @ 00:02 by Michell Mark) (HFpEF) heart failure with preserved ejection fraction Chronic atrial fibrillation Diabetes mellitus HTN (hypertension) Hyperglycemia due to type 2 diabetes mellitus Redness and swelling of lower leg Family History Family History Father No problems noted. Mother CVD (cardiovascular disease) Family history: reviewed and not pertinent Social History Social History Alcohol intake: never service: No Current occupational status: unemployed Meds Allergies Allergy/AdvReac Type Severity Reaction Status Date / Time acetaminophen [From VICODIN] Allergy Unknown UNKNOWN Verified 10/01/21 15:41 acyclovir [ACYCLOVIR] Allergy Unknown HALLUCINATI Verified 10/01/21 15:41 ONS adhesive tape Allergy Unknown ALL TAPE Verified 10/01/21 15:41 SKIN EROSION amlodipine [From NORVASC] Allergy Unknown PEADAL Verified 10/01/21 15:41 EDEMA fluconazole [From DIFLUCAN] Allergy Unknown RASH/SWELLI Verified 10/01/21 15:41 NG hydralazine [HYDRALAZINE] Allergy Unknown CONFUSION Verified 10/01/21 15:41 hydrochlorothiazide Allergy Unknown UNKNOWN Verified 10/01/21 15:41 [HYDROCHLOROTHIAZIDE] hydrocodone [From VICODIN] Allergy Unknown SWELLING/ED Verified 10/01/21 15:41 CARMINA Iodinated Contrast Media Allergy Unknown ON Verified 10/01/21 15:41 [Iodinated Contrast Media - GLUCOPHAGE IV Dye] lisinopril [LISINOPRIL] Allergy Unknown LEG CRAMPS Verified 10/01/21 15:41 losartan [From COZAAR] Allergy Unknown UNKNOWN Verified 10/01/21 15:41 meperidine [From DEMEROL] Allergy Unknown ITCHING/PRU Verified 10/01/21 15:41 RITIS oxycodone [From PERCOCET] Allergy Unknown HALLUCINAT Verified 10/01/21 15:41 IONS simvastatin [SIMVASTATIN] Allergy Unknown PAIN IN Verified 10/01/21 15:41 FEET+UP LEGS Tetanus Vaccines and Toxoid Allergy Unknown ARMS SWELL Verified 10/01/21 15:41 [Tetanus Vaccines & Toxoid] valsartan [VALSARTAN] Allergy Unknown RINGING IN Verified 10/01/21 15:41 EARS Adhesive Tape Allergy Unknown Unknown Uncoded 10/01/21 15:41 IVP dye Allergy Unknown Unknown Uncoded 10/01/21 15:41 Tetanus Allergy Unknown Unknown Uncoded 10/01/21 15:41 Vicodin Allergy Unknown Unknown Uncoded 10/01/21 15:41 Active Medications: Current Medications Amiodarone HCl (Amiodarone Hcl 200 Mg Tablet) 200 mg PO BID [facility] Last Admin: 10/05/21 10:33 Dose: 200 mg Documented by: Aspirin (Aspirin Enteric Coated 81 Mg Tablet.) 81 mg PO DAILY [facility] Last Admin: 10/05/21 09:07 Dose: 81 mg Documented by: Dextrose (Dextrose 50 % 25 Gm/50 Ml Vial) 25 gm IVPUSH Q15M PRN; Protocol PRN Reason: per Hypoglycemia Standing Ord. Digoxin (Digoxin 0.125 Mg Tablet) 0.125 mg PO DAILY [facility] Last Admin: 10/05/21 09:07 Dose: 0.125 mg Documented by: Doxycycline Hyclate (Doxycycline Hyclate 100 Mg Tablet) 100 mg PO Q12H [facility] Fentanyl (Fentanyl Citrate/Pf 100 Mcg/2 Ml Vial) 25 mcg IVPUSH Q1H PRN; Protocol PRN Reason: dressing changes Last Admin: 10/03/21 02:36 Dose: 25 mcg Documented by: Glucose (Glucose Gel 15 Gm Gel..Gram.) 15 gm PO Q15M PRN; Protocol PRN Reason: per Hypoglycemia Standing Ord. Insulin Glargine (Insulin Glargine,Hum.Rec.Anlog 100 Unit/Ml 10 Ml Vial) 10 unit SUBCUT BEDTIME [facility] Last Admin: 10/04/21 23:30 Dose: 10 unit Documented by: Insulin Human Lispro (Insulin Lispro 100 Unit/Ml 3 Ml Vial) 0 unit SUBCUT QIDACHS [facility]; Protocol Last Admin: 10/05/21 13:35 Dose: 2 unit Documented by: Melatonin (Melatonin 3 Mg Tablet) 6 mg PO BEDTIME PRN PRN Reason: Insomnia Metoprolol Tartrate (Metoprolol Tartrate 5 Mg/5 Ml Vial) 5 mg IVPUSH Q6H PRN PRN Reason: HR>125 Last Admin: 10/05/21 09:21 Dose: 5 mg Documented by: Metoprolol Tartrate (Metoprolol Tartrate 25 Mg Tablet) 25 mg PO Q6H [facility]; Protocol Last Admin: 10/05/21 10:33 Dose: 12.5 mg Documented by: Midodrine (Midodrine Hcl 5 Mg Tablet) 5 mg PO BID [facility] Pharmacy Consult (Consult Rx Perform Med Rec) 1 each MISCELLANE ONCE PRN PRN Reason: Consult order Pharmacy Consult (Consult Rx Vancomycin Dosing) 1 each MISCELLANE DAILY PRN PRN Reason: Consult order Senna (Sennosides 8.6 Mg Tablet) 17.2 mg PO BEDTIME PRN PRN Reason: Constipation Sodium Chloride (0.9 % Sodium Chloride Flush 3 Ml Syringe) [address] [facility] Last Admin: 10/05/21 15:43 Dose: Not Given Documented by: Home Medications Medication Instructions Recorded Confirmed Last Taken Type aspirin 81 mg tablet,delayed 81 mg PO DAILY 08/13/20 10/01/21 Unknown History release (Adult Low Dose Aspirin) furosemide 20 mg tablet (Lasix) 20 mg PO DAILY 08/13/20 10/01/21 Unknown History glyburide 5 mg tablet 5 mg PO DAILY 08/13/20 10/01/21 Unknown History metformin 500 mg tablet 500 mg PO DAILY 08/13/20 10/01/21 Unknown History atenolol 25 mg tablet 100 mg PO BID tab 02/12/21 10/01/21 Unknown History Physical Exam Vital Signs: Vital Signs: Last Vital Signs Temp 97 F 10/05/21 15:16 Pulse 110 H 10/05/21 15:16 Resp 20 10/05/21 15:16 BP 170/100 H 10/05/21 15:16 Pulse Ox 96 10/05/21 15:16 Oxygen Flow Rate 4 10/01/21 13:30 BMI result Body Mass Index 39.1 Const: General: cooperative Eyes: General: appearance normal, both eyes and all related structures Resp: Effort & Inspection: normal respiratory effort Cardio: Rate: regular rate Rhythm: regular rhythm GI: Palpation (GI): Soft to palpation and nontender Extrem: Other: bilateral erythema legs with venous stasis Results Labs CBC & Chem 7: 10/13/21 05:15 10/13/21 05:15 Microbiology Microbiology Results: Microbiology 10/03/21 00:00 Leg - Right Gram Stain - Final 10/03/21 00:00 Leg - Right Routine Culture - Preliminary Gram negative yolie 10/01/21 14:15 Blood - Venous Blood Culture - Preliminary No growth after 48 hours. 10/01/21 13:50 Blood - Venous Blood Culture - Preliminary No growth after 48 hours. Assessment and Plan (1) Acute on chronic diastolic (congestive) heart failure: Status: Resolved (2) Redness and swelling of lower leg: Status: Acute She seems to have chronic venous stasis changes and erythema Plan Elevation and compression of legs Po Doxycycline for 10 days
[2021-10-05 16:32] LABS: Glucose, Whole Blood 196 mg/dL (60-115)
[2021-10-05 20:00] LABS: Glucose, Whole Blood 215 mg/dL (60-115)
[2021-10-05] MEDS: Midodrine HCl 5 MG TABLET PO (20:16)
[2021-10-05] MEDS: Insulin Glargine,Hum.rec.anlog 100 UNIT/ML 10 ML VIAL 10 UNIT SUBCUT (20:17)
[2021-10-06] VITALS (15 sets, daily range): BP systolic 103–152; BP diastolic 70–95; PULSE 56–150; RESP 16–19; TEMP 36.1–36.9; O2SAT 91–95; BMI 40.1
[2021-10-06] MEDS: Metoprolol Tartrate 25 MG TABLET PO (02:39)
[2021-10-06 07:53] LABS: Glucose, Whole Blood 131 mg/dL (60-115)
[2021-10-06] MEDS: Midodrine HCl 5 MG TABLET PO ×2 (08:30→20:14)
[2021-10-06] MEDS: Aspirin Enteric Coated 81 MG TABLET.DR PO (08:30)
[2021-10-06] MEDS: 0.9 % Sodium Chloride Flush 3 ML SYRINGE IVFLUSH ×3 (08:30→20:15)
[2021-10-06] MEDS: Metoprolol Tartrate 50 MG TABLET PO (08:30)
[2021-10-06] MEDS: Digoxin 0.125 MG TABLET PO (08:30)
[2021-10-06] MEDS: Amiodarone HCL 200 MG TABLET PO ×2 (08:30→20:14)
[2021-10-06] MEDS: Metoprolol Tartrate 5 MG/5 ML VIAL IVPUSH ×2 (09:39→18:47)
--- NOTE | 2021-10-06 09:52 | HO.PM.IMPN ---
Subjective Subjective Date of Service: 10/06/21 Interval History: Seen in f/u for sepsis, AFIB with RVR, has been doing well but HR jumped to 140s again this morning Review of Systems no fever, confused Physical Exam Vital Signs: Vital Signs: Last Vital Signs Temp 97 F 10/06/21 07:20 Pulse 144 H 10/06/21 08:27 Resp 18 10/06/21 07:20 BP 121/80 10/06/21 08:27 Pulse Ox 94 10/06/21 08:27 Oxygen Flow Rate 4 10/01/21 13:30 BMI result Body Mass Index 40.1 Const: Other: General: AO X 1, very anxious Resp: CTA bilateral CVS: S1,S2, iregular iregular GI: +BS, NT, no distention Skin: ulcers on legs Neuro: motor grossly intact Psych: appropriate affect Objective Data Active Medications Amiodarone HCl (Amiodarone Hcl 200 Mg Tablet) 200 mg PO BID [facility] Last Admin: 10/06/21 08:30 Dose: 200 mg Documented by: SEBLE Aspirin (Aspirin Enteric Coated 81 Mg Tablet.Dr) 81 mg PO DAILY [facility] Last Admin: 10/06/21 08:30 Dose: 81 mg Documented by: SEBLE Atenolol (Atenolol 100 Mg Tablet) 100 mg PO BID [facility]; Protocol Dextrose (Dextrose 50 % 25 Gm/50 Ml Vial) 25 gm IVPUSH Q15M PRN; Protocol PRN Reason: per Hypoglycemia Standing Ord. Digoxin (Digoxin 0.125 Mg Tablet) 0.125 mg PO DAILY [facility] Last Admin: 10/06/21 08:30 Dose: 0.125 mg Documented by: SEBLE Doxycycline Hyclate (Doxycycline Hyclate 100 Mg Tablet) 100 mg PO Q12H [facility] Last Admin: 10/06/21 02:38 Dose: 100 mg Documented by: WINSOME Fentanyl (Fentanyl Citrate/Pf 100 Mcg/2 Ml Vial) 25 mcg IVPUSH Q1H PRN; Protocol PRN Reason: dressing changes Last Admin: 10/03/21 02:36 Dose: 25 mcg Documented by: ELISABETH Glucose (Glucose Gel 15 Gm Gel..Gram.) 15 gm PO Q15M PRN; Protocol PRN Reason: per Hypoglycemia Standing Ord. Glyburide (Glyburide 5 Mg Tablet) 5 mg PO DAILY [facility] Insulin Glargine (Insulin Glargine,Hum.Rec.Anlog 100 Unit/Ml 10 Ml Vial) 10 unit SUBCUT BEDTIME [facility] Last Admin: 10/05/21 20:17 Dose: 10 unit Documented by: WINSOME Insulin Human Lispro (Insulin Lispro 100 Unit/Ml 3 Ml Vial) 0 unit SUBCUT QIDACHS [facility]; Protocol Last Admin: 10/06/21 08:07 Dose: Not Given Documented by: SEBLE Non-Admin Reason: No Insulin Coverage Melatonin (Melatonin 3 Mg Tablet) 6 mg PO BEDTIME PRN PRN Reason: Insomnia Metformin HCl (Metformin Hcl 500 Mg Tablet) 500 mg PO DAILY [facility] Metoprolol Tartrate (Metoprolol Tartrate 5 Mg/5 Ml Vial) 5 mg IVPUSH Q6H PRN PRN Reason: HR>125 Last Admin: 10/06/21 09:39 Dose: 5 mg Documented by: SEBLE Midodrine (Midodrine Hcl 5 Mg Tablet) 5 mg PO BID [facility] Last Admin: 10/06/21 08:30 Dose: 5 mg Documented by: SEBLE Pharmacy Consult (Consult Rx Perform Med Rec) 1 each MISCELLANE ONCE PRN PRN Reason: Consult order Pharmacy Consult (Consult Rx Vancomycin Dosing) 1 each MISCELLANE DAILY PRN PRN Reason: Consult order Senna (Sennosides 8.6 Mg Tablet) 17.2 mg PO BEDTIME PRN PRN Reason: Constipation Sodium Chloride (0.9 % Sodium Chloride Flush 3 Ml Syringe) 3 ml IVFLUSH QSHIFT [facility] Last Admin: 10/06/21 08:30 Dose: 3 ml Documented by: SEBLE Labs CBC & Chem 7: 10/04/21 10:09 10/04/21 10:09 Labs: Laboratory Results - last 24 hr 10/02/21 10/05/21 10/05/21 14:03 11:11 16:29 Smear Path Review POC Glucose 178 H 196 H 10/05/21 10/06/21 19:52 07:38 Smear Path Review POC Glucose 215 H 131 H Microbiology Microbiology Results: Microbiology 10/03/21 00:00 Gram Stain - Final Leg - Right Routine Culture - Final Pseudomonas aeruginosa Assessment and Plan (1) Sepsis: Status: Acute (2) Low blood pressure: Status: Acute (3) Atrial fibrillation with rapid ventricular response: Status: Acute (4) Hyperglycemia due to type 2 diabetes mellitus: Status: Acute Assessment and Plan: 81-year-old female with a past medical history of hypertension, diabetes, diastolic CHF, chronic AFib-not on anticoagulation, chronic lymphedema; presented to the hospital today with a chief complaint of bilateral leg swelling and pain.? Noted to have following conditions Septic shock/severe sepsis likely from bilateral leg cellulitis--Sepsis resolved -source likely leg ulcers -cultures polymicrobial--> skin arjun and contamination -Continue broad spec Abx --has been been on Cefepime and Vanco, WBC is normal -Continue Oral Doxy as recommended by ID AFib with rapid ventricular response likely precipitated by Sepsis.--persistent RVR -continue Dig -resume home Atenoll -PO Amio, further adjustment by card -has chronic AFIB unlikely to respond to cardioversion -She has not wanted anticoagulation in past Acute on chronic diastolic CHF: clinically doesn't appear to be in failure, dc Lasix given low BP, cardiology to help with management PARKER: due to sepsis, resolved. Bilateral leg lymphedema/cellulitis:?Doxy as above Diabetes/hyperglycemia:??Insiluin Dysphagia--Speech consult Goals of care conversation with family DVT prophylaxis:? Lovenox Code status: DNI/DNI Care discussed with daughter over the phone, home once HR controlled, possibly later today Quality Stroke Does the patient have a stroke diagnosis?: No VTE Prior VTE?: No VTE Risk Level:: Medical - moderate - high VTE Device Contraindication: Treatment Not Indicated VTE Drug Contraindication: N/A - Med Ordered
--- NOTE | 2021-10-06 11:27 | PM.PNCARD ---
Subjective Subjective Date of Service: 10/06/21 Principal diagnosis: AF,Sepsis, CHF Interval history: Feels OK. No new cardiac symptoms. Review of Systems Review of Systems Yes all other systems are reviewed and are negative Cardiovascular: Reports as per HPI, Reports no additional cardiovascular complaints, Denies acrocyanosis, Denies cool extremities, Denies painful fingertips, Denies chest pain, Denies chest pain at rest, Denies diaphoresis, Denies syncope, Denies irregular heart rhythm, Denies claudication, Denies leg edema, Denies lightheadedness, Denies palpitations and Denies dyspnea Respiratory: Denies dyspnea Denies syncope Endocrine: Denies palpitations Physical Exam Vital Signs: Last Vital Signs Temp 97 F 10/06/21 07:20 Pulse 100 10/06/21 11:20 Resp 18 10/06/21 07:20 BP 121/80 10/06/21 08:27 Pulse Ox 94 10/06/21 08:27 Oxygen Flow Rate 4 10/01/21 13:30 BMI result Body Mass Index 40.1 Const General: no acute distress HENMI Other: Unremarkable Neck Neck: Yes normal visual inspection Chest Chest palpation & inspection: normal inspection of the chest Resp Auscultation: no crackles and no wheezes Cardio Palpation: normal PMI Heart sounds: S1 normal heart sound present, S2 normal heart sound present, no gallops, no murmurs and no rubs GI Palpation (GI): Soft to palpation Back/Spine/Pelvis Other: unremarkable Skin Lesions: other Neuro Cranial nerves: Yes Other cranial nerve findings present Extrem General: Yes other Psych Mental Status: other Objective Labs and Meds Result diagrams: 10/04/21 10:09 10/04/21 10:09 Lab results: Laboratory Results - last 24 hr 10/02/21 10/05/21 10/05/21 14:03 16:29 19:52 Smear Path Review POC Glucose 196 H 215 H 10/06/21 07:38 Smear Path Review POC Glucose 131 H Imaging Radiologist's impression: Impressions Pulmonary Perfusion Imaging 10/02/21 18:54 IMPRESSION: Very low probability of pulmonary embolism. Progress Note: A&P Assessment and plan (1) Atrial fibrillation with rapid ventricular response: Status: Acute (2) Acute on chronic diastolic (congestive) heart failure: Status: Acute Assessment and Plan: Difficult to control atrial fibrillation rapid rate, but seems better. We can switch to amiodarone drip to oral amiodarone. Also resume home beta-blockers that were previously held because of low blood pressure. Blood pressure seems to have stabilized. Dose is Atenolol 100 mg b.i.d. and this can be restarted. May not need digoxin especially as renal function is abnormal. Otherwise, continues to refuse anticoagulation as she has had in the past and hence not a candidate for CANDIDO cardioversion. Diuretics as needed. Fall Risk Details Current Medications: Current Medications Amiodarone HCl (Amiodarone Hcl 200 Mg Tablet) 200 mg PO BID [facility] Last Admin: 10/06/21 08:30 Dose: 200 mg Documented by: Aspirin (Aspirin Enteric Coated 81 Mg Tablet.) 81 mg PO DAILY [facility] Last Admin: 10/06/21 08:30 Dose: 81 mg Documented by: Atenolol (Atenolol 100 Mg Tablet) 100 mg PO BID [facility]; Protocol Dextrose (Dextrose 50 % 25 Gm/50 Ml Vial) 25 gm IVPUSH Q15M PRN; Protocol PRN Reason: per Hypoglycemia Standing Ord. Digoxin (Digoxin 0.125 Mg Tablet) 0.125 mg PO DAILY [facility] Last Admin: 10/06/21 08:30 Dose: 0.125 mg Documented by: Doxycycline Hyclate (Doxycycline Hyclate 100 Mg Tablet) 100 mg PO Q12H [facility] Last Admin: 10/06/21 02:38 Dose: 100 mg Documented by: Fentanyl (Fentanyl Citrate/Pf 100 Mcg/2 Ml Vial) 25 mcg IVPUSH Q1H PRN; Protocol PRN Reason: dressing changes Last Admin: 10/03/21 02:36 Dose: 25 mcg Documented by: Glucose (Glucose Gel 15 Gm Gel..Gram.) 15 gm PO Q15M PRN; Protocol PRN Reason: per Hypoglycemia Standing Ord. Glyburide (Glyburide 5 Mg Tablet) 5 mg PO DAILY [facility] Insulin Glargine (Insulin Glargine,Hum.Rec.Anlog 100 Unit/Ml 10 Ml Vial) 10 unit SUBCUT BEDTIME [facility] Last Admin: 10/05/21 20:17 Dose: 10 unit Documented by: Insulin Human Lispro (Insulin Lispro 100 Unit/Ml 3 Ml Vial) 0 unit SUBCUT QIDACHS [facility]; Protocol Last Admin: 10/06/21 08:07 Dose: Not Given Documented by: Melatonin (Melatonin 3 Mg Tablet) 6 mg PO BEDTIME PRN PRN Reason: Insomnia Metformin HCl (Metformin Hcl 500 Mg Tablet) 500 mg PO DAILY [facility] Metoprolol Tartrate (Metoprolol Tartrate 5 Mg/5 Ml Vial) 5 mg IVPUSH Q6H PRN PRN Reason: HR>125 Last Admin: 10/06/21 09:39 Dose: 5 mg Documented by: Midodrine (Midodrine Hcl 5 Mg Tablet) 5 mg PO BID [facility] Last Admin: 10/06/21 08:30 Dose: 5 mg Documented by: Pharmacy Consult (Consult Rx Perform Med Rec) 1 each MISCELLANE ONCE PRN PRN Reason: Consult order Pharmacy Consult (Consult Rx Vancomycin Dosing) 1 each MISCELLANE DAILY PRN PRN Reason: Consult order Senna (Sennosides 8.6 Mg Tablet) 17.2 mg PO BEDTIME PRN PRN Reason: Constipation Sodium Chloride (0.9 % Sodium Chloride Flush 3 Ml Syringe) 3 ml IVFLUSH QSHIFT [facility] Last Admin: 10/06/21 08:30 Dose: 3 ml Documented by: Time Spent With Patient Time: Total time spent is greater than 50% in coordination of care (as documented) at patient's floor/unit and/or counseling patient: Time with patient: less than 15 minutes Progress Note: Quality Stroke Does the patient have a stroke diagnosis?: No Procedures Date of Service Date of Service: 10/06/21
[2021-10-06 11:32] LABS: Glucose, Whole Blood 165 mg/dL (60-115)
[2021-10-06] MEDS: Insulin Lispro 100 UNIT/ML 3 ML VIAL SUBCUT ×2 (11:55→20:14)
--- NOTE | 2021-10-06 13:04 | MHC.CM.PN ---
Addendum entered by Radha Matos RN 10/06/21 13:14: CM CONTACTED [facility] AT 12:30PM AND [facility] REPORTED FACILITY IS CLOSED TO ADMISSIONS D/T COVID OUTBREAK, ADDITIONAL REFERRALS SENT TO [facility]. Original Note: PER HOSPITALIST PT WILL BE CLEARED TO D/C ONCE HR STABILIZES, PT EVAL REQUESTED PT AND FAMILY WOULD LIKE STR, CM WILL CONT TO FOLLOW. PT PREFERS [facility] AND [facility], CM AWAITING RESPONSE IN [facility] FOR BED AVAILABILITY.
[2021-10-06 16:15] LABS: Glucose, Whole Blood 144 mg/dL (60-115)
[2021-10-06 20:02] LABS: Glucose, Whole Blood 189 mg/dL (60-115)
[2021-10-06] MEDS: Melatonin 3 MG TABLET 6 MG PO (20:14)
[2021-10-06] MEDS: Insulin Glargine,Hum.rec.anlog 100 UNIT/ML 10 ML VIAL 10 UNIT SUBCUT (20:14)
[2021-10-06] MEDS: atenoloL 100 MG TABLET PO (20:14)
[2021-10-07] VITALS (7 sets, daily range): BP systolic 99–157; BP diastolic 60–96; PULSE 89–107; RESP 16–18; TEMP 36–36.3; O2SAT 92–96
[2021-10-07 07:47] LABS: Glucose, Whole Blood 76 mg/dL (60-115)
[2021-10-07] MEDS: atenoloL 100 MG TABLET PO ×2 (08:41→22:00)
[2021-10-07] MEDS: metFORMIN HCl 500 MG TABLET PO (08:41)
[2021-10-07] MEDS: Digoxin 0.125 MG TABLET PO (08:41)
[2021-10-07] MEDS: 0.9 % Sodium Chloride Flush 3 ML SYRINGE IVFLUSH ×3 (08:42→22:01)
[2021-10-07] MEDS: Midodrine HCl 5 MG TABLET PO ×2 (08:42→22:00)
[2021-10-07] MEDS: glyBURIDE 5 MG TABLET PO (08:42)
[2021-10-07] MEDS: Amiodarone HCL 200 MG TABLET PO ×2 (08:42→22:00)
[2021-10-07] MEDS: Aspirin Enteric Coated 81 MG TABLET.DR PO (08:42)
[2021-10-07 11:31] LABS: Glucose, Whole Blood 121 mg/dL (60-115)
--- NOTE | 2021-10-07 11:32 | MHC.CM.PN ---
PER MULTIDICSIPLINARY ROUNDS PT NOT READY FOR D/C, ANTIC POSSIBLE D/C TOMORROW 10/08, [facility] CHECKING ON BED AVAILABILITY AND PT WILL NEED COVID PCR PRIOR TO D/C, CM WILL CONT TO FOLLOW D/C NEEDS.
--- NOTE | 2021-10-07 13:19 | P.PNIM_ITS ---
Subjective Subjective Date of Service: 10/07/21 Interval History: No acute issues overnight; rate remains well controlled Review of Systems denies chest pain Denies shortness of breath Denies nausea vomiting diarrhea Physical Exam Vital Signs: Vital Signs: Last Vital Signs Temp 96.9 F 10/07/21 11:31 Pulse 96 10/07/21 11:31 Resp 18 10/07/21 11:31 BP 157/96 H 10/07/21 11:31 Pulse Ox 92 10/07/21 11:31 Oxygen Flow Rate 4 10/01/21 13:30 BMI result Body Mass Index 40.1 Const: Other: no acute distress Resp: Other: clear to auscultation bilaterally no rales rhonchi or wheezes Cardio: Other: no S4; positive S1-S2; n GI: Other: soft nontender nondistended with normoactive bowel sounds Extrem: Other: bilateral erythema with chronic venous stasis changes Objective Data Active Medications Amiodarone HCl (Amiodarone Hcl 200 Mg Tablet) 200 mg PO BID [facility] Last Admin: 10/07/21 08:42 Dose: 200 mg Documented by: AKRI Aspirin (Aspirin Enteric Coated 81 Mg Tablet.) 81 mg PO DAILY [facility] Last Admin: 10/07/21 08:42 Dose: 81 mg Documented by: KARI Atenolol (Atenolol 100 Mg Tablet) 100 mg PO BID [facility]; Protocol Last Admin: 10/07/21 08:41 Dose: 100 mg Documented by: KARI Dextrose (Dextrose 50 % 25 Gm/50 Ml Vial) 25 gm IVPUSH Q15M PRN; Protocol PRN Reason: per Hypoglycemia Standing Ord. Digoxin (Digoxin 0.125 Mg Tablet) 0.125 mg PO DAILY [facility] Last Admin: 10/07/21 08:41 Dose: 0.125 mg Documented by: KARI Doxycycline Hyclate (Doxycycline Hyclate 100 Mg Tablet) 100 mg PO Q12H [facility] Last Admin: 10/07/21 13:14 Dose: 100 mg Documented by: KARI Fentanyl (Fentanyl Citrate/Pf 100 Mcg/2 Ml Vial) 25 mcg IVPUSH Q1H PRN; Protocol PRN Reason: dressing changes Last Admin: 10/03/21 02:36 Dose: 25 mcg Documented by: ELISABETH Glucose (Glucose Gel 15 Gm Gel..Gram.) 15 gm PO Q15M PRN; Protocol PRN Reason: per Hypoglycemia Standing Ord. Glyburide (Glyburide 5 Mg Tablet) 5 mg PO DAILY [facility] Last Admin: 10/07/21 08:42 Dose: 5 mg Documented by: KARI Insulin Glargine (Insulin Glargine,Hum.Rec.Anlog 100 Unit/Ml 10 Ml Vial) 10 unit SUBCUT BEDTIME [facility] Last Admin: 10/06/21 20:14 Dose: 10 unit Documented by: WINSOME Insulin Human Lispro (Insulin Lispro 100 Unit/Ml 3 Ml Vial) 0 unit SUBCUT QIDACHS [facility]; Protocol Last Admin: 10/07/21 11:47 Dose: Not Given Documented by: KARI Non-Admin Reason: No Insulin Coverage Melatonin (Melatonin 3 Mg Tablet) 6 mg PO BEDTIME PRN PRN Reason: Insomnia Last Admin: 10/06/21 20:14 Dose: 6 mg Documented by: WINSOME Metformin HCl (Metformin Hcl 500 Mg Tablet) 500 mg PO DAILY [facility] Last Admin: 10/07/21 08:41 Dose: 500 mg Documented by: KARI Metoprolol Tartrate (Metoprolol Tartrate 5 Mg/5 Ml Vial) 5 mg IVPUSH Q6H PRN PRN Reason: HR>125 Last Admin: 10/06/21 18:47 Dose: 5 mg Documented by: SEBLE Midodrine (Midodrine Hcl 5 Mg Tablet) 5 mg PO BID [facility] Last Admin: 10/07/21 08:42 Dose: 5 mg Documented by: KARI Pharmacy Consult (Consult Rx Perform Med Rec) 1 each MISCELLANE ONCE PRN PRN Reason: Consult order Pharmacy Consult (Consult Rx Vancomycin Dosing) 1 each MISCELLANE DAILY PRN PRN Reason: Consult order Senna (Sennosides 8.6 Mg Tablet) 17.2 mg PO BEDTIME PRN PRN Reason: Constipation Sodium Chloride (0.9 % Sodium Chloride Flush 3 Ml Syringe) 3 ml IVFLUSH QSHIFT [facility] Last Admin: 10/07/21 08:42 Dose: 3 ml Documented by: KARI Labs CBC & Chem 7: 10/04/21 10:09 10/04/21 10:09 Labs: Laboratory Results - last 24 hr 10/06/21 10/06/21 10/07/21 16:03 19:23 07:20 POC Glucose 144 H 189 H 76 10/07/21 11:26 POC Glucose 121 H Microbiology Microbiology Results: Microbiology 10/01/21 14:15 Blood Culture - Final Blood - Venous No growth after 5 days. 10/01/21 13:50 Blood Culture - Final Blood - Venous No growth after 5 days. 10/03/21 00:00 Gram Stain - Final Leg - Right Routine Culture - Final Pseudomonas aeruginosa Assessment and Plan (1) Bilateral lower leg cellulitis: Status: Acute (2) Acute renal failure: Status: Acute (3) Atrial fibrillation with rapid ventricular response: Status: Acute Assessment and Plan: 81-year-old female with a past medical history of hypertension, diabetes, diast olic CHF, chronic AFib-not on anticoagulation, chronic lymphedema; presented to the hospital today with a chief complaint of bilateral leg swelling and pain. Was septic on arrival from cellulitis; this has resolved 1. Cellulitis Complete 10day course of oral Doxycycline Elevate legs 2.AFib with rapid ventricular response likely precipitated by Sepsis.--persistent RVR Acute on chronic; not candidate for anticoag Continue oral amiodarone load as per Cards; BB as ordered 3. PARKER Reolved with rate control/volume(likely related to sepsis) 4. DMII Renal function normalized; Continue Metformin/Glipizide Sliding scale insulin DVT prophylaxis:? Lovenox Code status: DNI/DNI HR controlled, possibly later today Quality Stroke Does the patient have a stroke diagnosis?: No VTE Prior VTE?: No VTE Risk Level:: Medical - moderate - high VTE Device Contraindication: Treatment Not Indicated VTE Drug Contraindication: N/A - Med Ordered
--- NOTE | 2021-10-07 14:56 | MHC.CLN ---
F/U VARIABLE INTAKE, 0-50%. SEEN BY [employer] WITH REC FOR REGULAR CONSISTENCY AND THIN LIQUIDS. DIET= DIABETIC 2000 KCAL, 2 GRAM SODIUM. CONTINUE GLUCERNA BID TO INCREASE KCALS. LIZ =13, NO PRESSURE AREAS. CELLULITIS TO BILATERAL LEGS. MONITOR PO INTAKE CLOSELY.
--- NOTE | 2021-10-07 15:06 | MHC.CM.PN ---
CM RECEIVED CALL FROM PT'S REG WHO REPORTS HE SPOKE W/DTR/HCP JANIE WHO INPT AT ANOTHER HOSPITAL AND REG REPORTED THEY [facility] NOT [facility] [place] [facility] UPDATED.
[2021-10-07 16:53] LABS: Glucose, Whole Blood 95 mg/dL (60-115)
[2021-10-07 21:27] LABS: Glucose, Whole Blood 85 mg/dL (60-115)
[2021-10-08] VITALS (7 sets, daily range): BP systolic 114–148; BP diastolic 60–94; PULSE 74–98; RESP 15–20; TEMP 36–36.8; O2SAT 92–98
[2021-10-08 06:11] LABS: PLT ABN DIST 1; SCAN SMEAR FLAG 1
[2021-10-08 06:12] LABS: Basophils Percent Auto 0.3 % (0-2); Eosinophils Absolute Auto 0.1 X10*3/uL (0.0-0.4); Eosinophils Percent Auto 1.2 % (0-4); Hemoglobin 18.7 g/dl (12.0-16.0); Imm Gran Pct Auto 2.2 % (0.0-0.4); Lymphocytes Percent Auto 10.6 % (20-40); Mean Corpuscular HGB Conc 32.8 g/dl (31.0-35.0); Mean Corpuscular Hemoglobin 36.5 pg (27.0-33.0); Mean Corpuscular Volume 111.1 fL (80.0-98.0); Mean Platelet Volume 12.7 fL (9.4-12.3); Monocytes Absolute Auto 1.3 X10*3/uL (0.1-1.2); Monocytes Percent Auto 13.9 % (2-11); Neutrophils Absolute Auto 6.7 x10*3/uL (2.0-8.3); Neutrophils Percent Auto 71.8 % (45-73); PLT CLUMP 1; Red Blood Count 5.13 X10*6/uL (4.20-5.50); Red Cell Distribution Width 13.1 % (11.0-16.0)
[2021-10-08 06:16] LABS: MANUAL DIFF FLAG NO; White Blood Count 9.3 X10*3/uL (4.8-10.8)
[2021-10-08 06:33] LABS: Platelet Count 69 X10*3/uL (160-400)
[2021-10-08 07:41] LABS: Glucose, Whole Blood 108 mg/dL (60-115)
[2021-10-08 09:16] LABS: Alanine Aminotransferase 36 U/L (0-31); Alkaline Phosphatase 90 U/L (39-117); Anion Gap 12 (12-20); Aspartate Amino Transferase 28 U/L (5-31); Blood Urea Nitrogen 23 mg/dL (9-16); Calcium 9.2 mg/dL (8.4-10.2); Carbon Dioxide 24 mmol/L (22-29); Chloride 108 mmol/L (96-108); Creatinine Clr Calc Pharmacy 57.2; Estimated Glomerular Filt Rate 56; Glucose Fasting 110 mg/dL (60-99); Potassium 5.4 mmol/L (3.3-5.1); Sodium 139 mmol/L (135-145); Total Protein 5.9 g/dL (6.5-8.0)
[2021-10-08] MEDS: atenoloL 100 MG TABLET PO ×2 (10:01→22:22)
[2021-10-08] MEDS: glyBURIDE 5 MG TABLET PO (10:01)
[2021-10-08] MEDS: Amiodarone HCL 200 MG TABLET PO ×2 (10:01→22:22)
[2021-10-08] MEDS: metFORMIN HCl 500 MG TABLET PO (10:01)
[2021-10-08] MEDS: Digoxin 0.125 MG TABLET PO (10:01)
[2021-10-08] MEDS: Midodrine HCl 5 MG TABLET PO ×2 (10:01→22:22)
[2021-10-08] MEDS: Aspirin Enteric Coated 81 MG TABLET.DR PO (10:02)
[2021-10-08] MEDS: 0.9 % Sodium Chloride Flush 3 ML SYRINGE IVFLUSH ×3 (10:02→22:23)
--- NOTE | 2021-10-08 10:09 | MHC.CM.PN ---
Addendum entered by Radha Matos RN 10/08/21 12:21: CM CONTACTED PT'S YORDY AT 11:55AM, PER YORDY OK TO SEND PT TO [facility] HOWEVER THEY DO NOT HAVE A BED AVAILABLE TODAY, CM HAS EXPANDED SEARCH FOR UNVACCINATED BEDS AND WILL CONT TO FOLLOW. Addendum entered by Radha Matos RN 10/08/21 10:28: CM CONTACTED PT'S YORDY RODRIGUEZ AT 10:20AM [phone] TOP DISCUSS DCP, YORDY WILL CONSULT WITH FAMILY TO DECIDE WHETHER TO [facility] OR SEND PPT TO [facility], URIEL WILL REVISIT W/YORDY AFTER 10:30 ROUNDS. Original Note: uriel contacted liaison from [facility] and they only have Covid recovered beds available today and pt is not vaccinated and has no hx of being Covid positive.
[2021-10-08 11:16] LABS: Glucose, Whole Blood 141 mg/dL (60-115)
--- NOTE | 2021-10-08 12:50 | P.PNIM_ITS ---
Subjective Subjective Date of Service: 10/08/21 Interval History: No acute issues overnight Review of Systems denies chest pain Denies shortness of breath Denies nausea vomiting diarrhea Physical Exam Vital Signs: Vital Signs: Last Vital Signs Temp 98.3 F 10/08/21 11:33 Pulse 97 10/08/21 11:33 Resp 20 10/08/21 11:33 BP 148/87 H 10/08/21 11:33 Pulse Ox 96 10/08/21 11:33 Oxygen Flow Rate 4 10/01/21 13:30 BMI result Body Mass Index 40.1 Const: Other: no acute distress Resp: Other: clear to auscultation bilaterally no rales rhonchi or wheezes Cardio: Other: no S4; positive S1-S2; n GI: Other: soft nontender nondistended with normoactive bowel sounds Extrem: Other: bilateral erythema with chronic venous stasis changes Objective Data Active Medications Amiodarone HCl (Amiodarone Hcl 200 Mg Tablet) 200 mg PO BID [facility] Last Admin: 10/08/21 10:01 Dose: 200 mg Documented by: NORI Aspirin (Aspirin Enteric Coated 81 Mg Tablet.Dr) 81 mg PO DAILY [facility] Last Admin: 10/08/21 10:02 Dose: 81 mg Documented by: NORI Atenolol (Atenolol 100 Mg Tablet) 100 mg PO BID [facility]; Protocol Last Admin: 10/08/21 10:01 Dose: 100 mg Documented by: NORI Dextrose (Dextrose 50 % 25 Gm/50 Ml Vial) 25 gm IVPUSH Q15M PRN; Protocol PRN Reason: per Hypoglycemia Standing Ord. Digoxin (Digoxin 0.125 Mg Tablet) 0.125 mg PO DAILY [facility] Last Admin: 10/08/21 10:01 Dose: 0.125 mg Documented by: NORI Doxycycline Hyclate (Doxycycline Hyclate 100 Mg Tablet) 100 mg PO Q12H [facility] Last Admin: 10/08/21 01:10 Dose: 100 mg Documented by: ROXANA Glucose (Glucose Gel 15 Gm Gel..Gram.) 15 gm PO Q15M PRN; Protocol PRN Reason: per Hypoglycemia Standing Ord. Glyburide (Glyburide 5 Mg Tablet) 5 mg PO DAILY [facility] Last Admin: 10/08/21 10:01 Dose: 5 mg Documented by: NORI Insulin Glargine (Insulin Glargine,Hum.Rec.Anlog 100 Unit/Ml 10 Ml Vial) 10 unit SUBCUT BEDTIME [facility] Last Admin: 10/07/21 22:24 Dose: Not Given Documented by: ROXANA Non-Admin Reason: pt not eating much poc only 85 Insulin Human Lispro (Insulin Lispro 100 Unit/Ml 3 Ml Vial) 0 unit SUBCUT QIDACHS [facility]; Protocol Last Admin: 10/08/21 11:20 Dose: Not Given Documented by: NORI Non-Admin Reason: No Insulin Coverage Melatonin (Melatonin 3 Mg Tablet) 6 mg PO BEDTIME PRN PRN Reason: Insomnia Last Admin: 10/06/21 20:14 Dose: 6 mg Documented by: WINSOME Metformin HCl (Metformin Hcl 500 Mg Tablet) 500 mg PO DAILY [facility] Last Admin: 10/08/21 10:01 Dose: 500 mg Documented by: NORI Metoprolol Tartrate (Metoprolol Tartrate 5 Mg/5 Ml Vial) 5 mg IVPUSH Q6H PRN PRN Reason: HR>125 Last Admin: 10/06/21 18:47 Dose: 5 mg Documented by: SEBLE Midodrine (Midodrine Hcl 5 Mg Tablet) 5 mg PO BID [facility] Last Admin: 10/08/21 10:01 Dose: 5 mg Documented by: NORI Pharmacy Consult (Consult Rx Perform Med Rec) 1 each MISCELLANE ONCE PRN PRN Reason: Consult order Pharmacy Consult (Consult Rx Vancomycin Dosing) 1 each MISCELLANE DAILY PRN PRN Reason: Consult order Senna (Sennosides 8.6 Mg Tablet) 17.2 mg PO BEDTIME PRN PRN Reason: Constipation Sodium Chloride (0.9 % Sodium Chloride Flush 3 Ml Syringe) 3 ml IVFLUSH QSHIFT [facility] Last Admin: 10/08/21 10:02 Dose: 3 ml Documented by: NORI Labs CBC & Chem 7: 10/08/21 05:19 10/08/21 08:28 Labs: Laboratory Results - last 24 hr 10/07/21 10/07/21 10/08/21 16:47 21:19 05:19 MCV 111.1 H MCH 36.5 H MCHC 32.8 RDW 13.1 Plt Count 69 L D MPV 12.7 H Immature Gran % (Auto) 2.2 H Neut % (Auto) 71.8 Lymph % (Auto) 10.6 L Maverick % (Auto) 13.9 H Eos % (Auto) 1.2 Baso % (Auto) 0.3 Lymph # (Auto) 1.0 L Maverick # (Auto) 1.3 H Eos # (Auto) 0.1 Baso # (Auto) 0.0 Abs Immat Gran (auto) 0.20 H Absolute Neuts (auto) 6.7 Absolute Nucleated RBC 0.000 Nucleated RBC % (auto) 0.0 Anion Gap Estim Creat Clear Calc Estimated GFR POC Glucose 95 85 Fasting Glucose Calcium Total Bilirubin AST ALT Alkaline Phosphatase Total Protein Albumin 10/08/21 10/08/21 10/08/21 07:15 08:28 11:11 MCV MCH MCHC RDW Plt Count MPV Immature Gran % (Auto) Neut % (Auto) Lymph % (Auto) Maverick % (Auto) Eos % (Auto) Baso % (Auto) Lymph # (Auto) Maverick # (Auto) Eos # (Auto) Baso # (Auto) Abs Immat Gran (auto) Absolute Neuts (auto) Absolute Nucleated RBC Nucleated RBC % (auto) Anion Gap 12 Estim Creat Clear Calc 57.2 Estimated GFR 56 POC Glucose 108 141 H Fasting Glucose 110 H Calcium 9.2 Total Bilirubin 2.0 H AST 28 ALT 36 H Alkaline Phosphatase 90 D Total Protein 5.9 L Albumin 3.0 L Assessment and Plan (1) Chronic atrial fibrillation: Status: Acute (2) Diabetes mellitus: Status: Acute (3) Bilateral lower leg cellulitis: Status: Acute Assessment and Plan: 81-year-old female with a past medical history of hypertension, diabetes, diastolic CHF, chronic AFib-not on anticoagulation, chronic lymphedema; presented to the hospital today with a chief complaint of bilateral leg swelling and pain. Was septic on arrival from cellulitis; this has resolved 1. Cellulitis Complete 10day course of oral Doxycycline 2.AFib with rapid ventricular response likely precipitated by Sepsis.--persistent RVR Acute on chronic; not candidate for anticoag Continue oral amiodarone load as per Cards; BB as ordered 3. PARKER Reolved with rate control/volume(likely related to sepsis) 4. DMII Renal function normalized; Continue Metformin/Glipizide Sliding scale insulin DVT prophylaxis:? Lovenox Code status: DNI/DNI Quality Stroke Does the patient have a stroke diagnosis?: No VTE Prior VTE?: No VTE Risk Level:: Medical - moderate - high VTE Device Contraindication: Treatment Not Indicated VTE Drug Contraindication: N/A - Med Ordered
[2021-10-08 14:57] LABS: Influenza A PCR NEGATIVE (Negative); Influenza B PCR NEGATIVE (Negative); Resp Syncy Virus RNA Qual PCR NEGATIVE (Negative); SARS COV2 PCR INHOUSE NEGATIVE (Negative)
--- NOTE | 2021-10-08 15:16 | MHC.CM.PN ---
CM [facility], NEG [place] [facility] SENT, PT'S DTR/HCP NOT ANSWERING PHONE (IN HOSPITAL), [facility] H[facility], PT'S WANTED TO DISCUSS W/DTR, PLEASE FOLOW-UP W/HIM IN AM.
[2021-10-08 16:36] LABS: Glucose, Whole Blood 145 mg/dL (60-115)
[2021-10-08 20:05] LABS: Glucose, Whole Blood 278 mg/dL (60-115)
[2021-10-08] MEDS: Insulin Lispro 100 UNIT/ML 3 ML VIAL SUBCUT (22:22)
[2021-10-08] MEDS: Insulin Glargine,Hum.rec.anlog 100 UNIT/ML 10 ML VIAL 10 UNIT SUBCUT (22:23)
[2021-10-09] VITALS (8 sets, daily range): BP systolic 117–185; BP diastolic 67–98; PULSE 77–98; RESP 18–22; TEMP 35.8–36.7; O2SAT 92–96; BMI 39.9
[2021-10-09 07:54] LABS: Glucose, Whole Blood 86 mg/dL (60-115)
[2021-10-09] MEDS: Aspirin Enteric Coated 81 MG TABLET.DR PO (08:25)
[2021-10-09] MEDS: Digoxin 0.125 MG TABLET PO (08:25)
[2021-10-09] MEDS: atenoloL 100 MG TABLET PO ×2 (08:25→21:32)
[2021-10-09] MEDS: Amiodarone HCL 200 MG TABLET PO ×2 (08:25→21:32)
[2021-10-09] MEDS: metFORMIN HCl 500 MG TABLET PO (08:25)
[2021-10-09] MEDS: Midodrine HCl 5 MG TABLET PO ×2 (08:25→21:32)
[2021-10-09] MEDS: 0.9 % Sodium Chloride Flush 3 ML SYRINGE IVFLUSH ×3 (08:26→21:32)
[2021-10-09] MEDS: glyBURIDE 5 MG TABLET PO (08:26)
--- NOTE | 2021-10-09 10:24 | MHC.CM.PN ---
pt no considered ltc by sn[facility] they can not accept pt
[2021-10-09 11:29] LABS: Glucose, Whole Blood 99 mg/dL (60-115)
--- NOTE | 2021-10-09 11:31 | P.PNIM_ITS ---
Subjective Subjective Date of Service: 10/09/21 Interval History: No interval changes appreciated Review of Systems denies chest pain denies Shortness of breath Denies nausea vomiting dot Physical Exam Vital Signs: Vital Signs: Last Vital Signs Temp 97.2 F 10/09/21 07:52 Pulse 77 10/09/21 09:58 Resp 18 10/09/21 07:52 BP 185/87 H 10/09/21 07:52 Pulse Ox 96 10/09/21 09:58 Oxygen Flow Rate 4 10/01/21 13:30 BMI result Body Mass Index 39.9 Const: Other: no acute distress Resp: Other: clear to auscultation bilaterally no rales rhonchi or wheezes Cardio: Other: no S4; positive S1-S2; n GI: Other: soft nontender nondistended with normoactive bowel sounds Extrem: Other: bilateral erythema with chronic venous stasis changes Objective Data Active Medications Amiodarone HCl (Amiodarone Hcl 200 Mg Tablet) 200 mg PO BID [facility] Last Admin: 10/09/21 08:25 Dose: 200 mg Documented by: NORI Aspirin (Aspirin Enteric Coated 81 Mg Tablet.Dr) 81 mg PO DAILY [facility] Last Admin: 10/09/21 08:25 Dose: 81 mg Documented by: NORI Atenolol (Atenolol 100 Mg Tablet) 100 mg PO BID [facility]; Protocol Last Admin: 10/09/21 08:25 Dose: 100 mg Documented by: NORI Dextrose (Dextrose 50 % 25 Gm/50 Ml Vial) 25 gm IVPUSH Q15M PRN; Protocol PRN Reason: per Hypoglycemia Standing Ord. Digoxin (Digoxin 0.125 Mg Tablet) 0.125 mg PO DAILY [facility] Last Admin: 10/09/21 08:25 Dose: 0.125 mg Documented by: NORI Doxycycline Hyclate (Doxycycline Hyclate 100 Mg Tablet) 100 mg PO Q12H [facility] Last Admin: 10/09/21 03:21 Dose: 100 mg Documented by: ROXANA Comments: pt was sleeping Glucose (Glucose Gel 15 Gm Gel..Gram.) 15 gm PO Q15M PRN; Protocol PRN Reason: per Hypoglycemia Standing Ord. Glyburide (Glyburide 5 Mg Tablet) 5 mg PO DAILY [facility] Last Admin: 10/09/21 08:26 Dose: 5 mg Documented by: NORI Insulin Glargine (Insulin Glargine,Hum.Rec.Anlog 100 Unit/Ml 10 Ml Vial) 10 unit SUBCUT BEDTIME [facility] Last Admin: 10/08/21 22:23 Dose: 10 unit Documented by: ROXANA Insulin Human Lispro (Insulin Lispro 100 Unit/Ml 3 Ml Vial) 0 unit SUBCUT QIDACHS [facility]; Protocol Last Admin: 10/09/21 08:01 Dose: Not Given Documented by: NORI Non-Admin Reason: No Insulin Coverage Melatonin (Melatonin 3 Mg Tablet) 6 mg PO BEDTIME PRN PRN Reason: Insomnia Last Admin: 10/06/21 20:14 Dose: 6 mg Documented by: WINSOME Metformin HCl (Metformin Hcl 500 Mg Tablet) 500 mg PO DAILY [facility] Last Admin: 10/09/21 08:25 Dose: 500 mg Documented by: NORI Metoprolol Tartrate (Metoprolol Tartrate 5 Mg/5 Ml Vial) 5 mg IVPUSH Q6H PRN PRN Reason: HR>125 Last Admin: 10/06/21 18:47 Dose: 5 mg Documented by: SEBLE Midodrine (Midodrine Hcl 5 Mg Tablet) 5 mg PO BID [facility] Last Admin: 10/09/21 08:25 Dose: 5 mg Documented by: NORI Pharmacy Consult (Consult Rx Perform Med Rec) 1 each MISCELLANE ONCE PRN PRN Reason: Consult order Senna (Sennosides 8.6 Mg Tablet) 17.2 mg PO BEDTIME PRN PRN Reason: Constipation Sodium Chloride (0.9 % Sodium Chloride Flush 3 Ml Syringe) 3 ml IVFLUSH QSHIFT [facility] Last Admin: 10/09/21 08:26 Dose: 3 ml Documented by: NORI Labs CBC & Chem 7: 10/08/21 05:19 10/08/21 08:28 Labs: Laboratory Results - last 24 hr 10/08/21 10/08/21 10/08/21 13:45 16:27 19:43 POC Glucose 145 H 278 H Influenza Type A (PCR) NEGATIVE Influenza Type B (PCR) NEGATIVE RSV RNA Qual (PCR) NEGATIVE SARS-CoV-2 RNA (RT-PCR) NEGATIVE 10/09/21 10/09/21 07:49 11:17 POC Glucose 86 99 Influenza Type A (PCR) Influenza Type B (PCR) RSV RNA Qual (PCR) SARS-CoV-2 RNA (RT-PCR) Assessment and Plan (1) Bilateral lower leg cellulitis: Status: Acute (2) Atrial fibrillation with rapid ventricular response: Status: Acute Assessment and Plan: 81-year-old female with a past medical history of hypertension, diabetes, diastolic CHF, chronic AFib-not on anticoagulation, chronic lymphedema; presented to the hospital today with a chief complaint of bilateral leg swelling and pain. Was septic on arrival from cellulitis; this has resolved 1. Cellulitis Complete 10day course of oral Doxycycline(01/03) 2.AFib with rapid ventricular response likely precipitated by Sepsis.--persistent RVR Acute on chronic; not candidate for anticoag Continue oral amiodarone load as per Cards(BID until 11/05/21); BB as ordered 3. PARKER Reolved with rate control/volume(likely related to sepsis) 4. DMII Renal function normalized; Continue Metformin/Glipizide Sliding scale insulin DVT prophylaxis:? Lovenox Code status: DNI/DNI Quality Stroke Does the patient have a stroke diagnosis?: No VTE Prior VTE?: No VTE Risk Level:: Medical - moderate - high VTE Device Contraindication: Treatment Not Indicated VTE Drug Contraindication: N/A - Med Ordered
[2021-10-09 16:13] LABS: Glucose, Whole Blood 88 mg/dL (60-115)
[2021-10-09 20:58] LABS: Glucose, Whole Blood 104 mg/dL (60-115)
[2021-10-09] MEDS: Insulin Glargine,Hum.rec.anlog 100 UNIT/ML 10 ML VIAL 10 UNIT SUBCUT (21:32)
[2021-10-10 04:00] VITALS: BP 140/86; PULSE 92; RESP 18; TEMP 36.1; O2SAT 92
[2021-10-10 06:00] VITALS: BMI 39.8
[2021-10-10 07:11] VITALS: BP 142/74; PULSE 91; RESP 20; TEMP 36.6; O2SAT 93
[2021-10-10 08:00] LABS: Glucose, Whole Blood 96 mg/dL (60-115)
[2021-10-10] MEDS: metFORMIN HCl 500 MG TABLET PO (09:41)
[2021-10-10] MEDS: Digoxin 0.125 MG TABLET PO (09:41)
[2021-10-10] MEDS: 0.9 % Sodium Chloride Flush 3 ML SYRINGE IVFLUSH ×3 (09:41→20:30)
[2021-10-10] MEDS: Midodrine HCl 5 MG TABLET PO ×2 (09:41→20:29)
[2021-10-10] MEDS: Amiodarone HCL 200 MG TABLET PO ×2 (09:41→20:28)
[2021-10-10] MEDS: glyBURIDE 5 MG TABLET PO (09:41)
[2021-10-10] MEDS: Aspirin Enteric Coated 81 MG TABLET.DR PO (09:41)
[2021-10-10] MEDS: atenoloL 100 MG TABLET PO ×2 (09:41→20:29)
[2021-10-10 11:09] VITALS: BP 148/74; PULSE 98; RESP 22; TEMP 36.4; O2SAT 93
[2021-10-10 11:21] LABS: Glucose, Whole Blood 120 mg/dL (60-115)
--- NOTE | 2021-10-10 11:35 | HO.PM.IMPN ---
Subjective Subjective Date of Service: 10/10/21 Interval History: no acute events overnight; remains anxious Physical Exam Vital Signs: Vital Signs: Last Vital Signs Temp 97.6 F 10/10/21 11:09 Pulse 98 10/10/21 11:09 Resp 22 H 10/10/21 11:09 BP 148/74 H 10/10/21 11:09 Pulse Ox 93 10/10/21 11:09 Oxygen Flow Rate 4 10/01/21 13:30 BMI result Body Mass Index 39.8 Const: Other: no acute distress Resp: Other: clear to auscultation bilaterally no rales rhonchi or wheezes Cardio: Other: no S4; positive S1-S2; n GI: Other: soft nontender nondistended with normoactive bowel sounds Extrem: Other: bilateral erythema with chronic venous stasis changes Objective Data Active Medications Amiodarone HCl (Amiodarone Hcl 200 Mg Tablet) 200 mg PO BID [facility] Last Admin: 10/10/21 09:41 Dose: 200 mg Documented by: SEBLE Aspirin (Aspirin Enteric Coated 81 Mg Tablet.Dr) 81 mg PO DAILY [facility] Last Admin: 10/10/21 09:41 Dose: 81 mg Documented by: SEBLE Atenolol (Atenolol 100 Mg Tablet) 100 mg PO BID [facility]; Protocol Last Admin: 10/10/21 09:41 Dose: 100 mg Documented by: SEBLE Dextrose (Dextrose 50 % 25 Gm/50 Ml Vial) 25 gm IVPUSH Q15M PRN; Protocol PRN Reason: per Hypoglycemia Standing Ord. Digoxin (Digoxin 0.125 Mg Tablet) 0.125 mg PO DAILY [facility] Last Admin: 10/10/21 09:41 Dose: 0.125 mg Documented by: SEBLE Doxycycline Hyclate (Doxycycline Hyclate 100 Mg Tablet) 100 mg PO Q12H [facility] Last Admin: 10/10/21 01:50 Dose: 100 mg Documented by: KARI Glucose (Glucose Gel 15 Gm Gel..Gram.) 15 gm PO Q15M PRN; Protocol PRN Reason: per Hypoglycemia Standing Ord. Glyburide (Glyburide 5 Mg Tablet) 5 mg PO DAILY [facility] Last Admin: 10/10/21 09:41 Dose: 5 mg Documented by: SEBLE Insulin Glargine (Insulin Glargine,Hum.Rec.Anlog 100 Unit/Ml 10 Ml Vial) 10 unit SUBCUT BEDTIME [facility] Last Admin: 10/09/21 21:32 Dose: 10 unit Documented by: YENNI Insulin Human Lispro (Insulin Lispro 100 Unit/Ml 3 Ml Vial) 0 unit SUBCUT QIDACHS [facility]; Protocol Last Admin: 10/10/21 08:04 Dose: Not Given Documented by: SEBLE Non-Admin Reason: No Insulin Coverage Melatonin (Melatonin 3 Mg Tablet) 6 mg PO BEDTIME PRN PRN Reason: Insomnia Last Admin: 10/06/21 20:14 Dose: 6 mg Documented by: WINSOME Metformin HCl (Metformin Hcl 500 Mg Tablet) 500 mg PO DAILY [facility] Last Admin: 10/10/21 09:41 Dose: 500 mg Documented by: SEBLE Metoprolol Tartrate (Metoprolol Tartrate 5 Mg/5 Ml Vial) 5 mg IVPUSH Q6H PRN PRN Reason: HR>125 Last Admin: 10/06/21 18:47 Dose: 5 mg Documented by: SEBLE Midodrine (Midodrine Hcl 5 Mg Tablet) 5 mg PO BID [facility] Last Admin: 10/10/21 09:41 Dose: 5 mg Documented by: SEBLE Pharmacy Consult (Consult Rx Perform Med Rec) 1 each MISCELLANE ONCE PRN PRN Reason: Consult order Senna (Sennosides 8.6 Mg Tablet) 17.2 mg PO BEDTIME PRN PRN Reason: Constipation Sertraline HCl (Sertraline Hcl 25 Mg Tablet) 12.5 mg PO DAILY [facility] Sodium Chloride (0.9 % Sodium Chloride Flush 3 Ml Syringe) 3 ml IVFLUSH QSHIFT [facility] Last Admin: 10/10/21 09:41 Dose: 3 ml Documented by: SEBLE Labs CBC & Chem 7: 10/08/21 05:19 10/08/21 08:28 Labs: Laboratory Results - last 24 hr 10/09/21 10/09/21 10/10/21 15:56 20:52 07:56 POC Glucose 88 104 96 10/10/21 11:08 POC Glucose 120 H Assessment and Plan (1) Bilateral lower leg cellulitis: Status: Acute (2) Chronic atrial fibrillation: Status: Acute Assessment and Plan: 81-year-old female with a past medical history of hypertension, diabetes, diastolic CHF, chronic AFib-not on anticoagulation, chronic lymphedema; presented to the hospital today with a chief complaint of bilateral leg swelling and pain. Was septic on arrival from cellulitis; this has resolved 1. Cellulitis Complete 10day course of oral Doxycycline(01/03) 2.AFib with rapid ventricular response likely precipitated by Sepsis.--persistent RVR Acute on chronic; not candidate for anticoag Continue oral amiodarone load as per Cards(BID until 11/05/21); BB as ordered 3. PARKER renal function stable 4. DMII Renal function normalized; Continue Metformin/Glipizide Sliding scale insulin 5.Anxiety Add small dose sertraline and follow response. Titrate to response DVT prophylaxis:? Lovenox Code status: DNI/DNI Quality Stroke Does the patient have a stroke diagnosis?: No VTE Prior VTE?: No VTE Risk Level:: Medical - moderate - high VTE Device Contraindication: Treatment Not Indicated VTE Drug Contraindication: N/A - Med Ordered
[2021-10-10] MEDS: Sertraline HCL 25 MG TABLET 12.5 MG PO (12:17)
[2021-10-10 15:09] VITALS: BP 129/92; PULSE 58; RESP 18; TEMP 36.4; O2SAT 94
[2021-10-10 16:38] LABS: Glucose, Whole Blood 142 mg/dL (60-115)
[2021-10-10 19:24] VITALS: BP 138/79; PULSE 77; RESP 18; TEMP 36.4; O2SAT 93
[2021-10-10 20:16] LABS: Glucose, Whole Blood 132 mg/dL (60-115)
[2021-10-10] MEDS: Insulin Glargine,Hum.rec.anlog 100 UNIT/ML 10 ML VIAL 10 UNIT SUBCUT (20:29)
[2021-10-10 23:56] VITALS: BP 119/82; PULSE 75; RESP 20; TEMP 35.3; O2SAT 94
[2021-10-11] VITALS (8 sets, daily range): BP systolic 120–151; BP diastolic 66–95; PULSE 65–90; RESP 18–20; TEMP 35.3–36.6; O2SAT 88–98; BMI 39.6
[2021-10-11 05:50] LABS: MANUAL DIFF FLAG NO
[2021-10-11 06:30] LABS: Basophils Percent Auto 0.4 % (0-2); Eosinophils Absolute Auto 0.1 X10*3/uL (0.0-0.4); Eosinophils Percent Auto 0.8 % (0-4); Hemoglobin 19.1 g/dl (12.0-16.0); Imm Gran Abs Auto 0.11 X10*3/uL (0.00-0.03); Imm Gran Pct Auto 1.4 % (0.0-0.4); Lymphocytes Percent Auto 12.9 % (20-40); Mean Corpuscular HGB Conc 32.6 g/dl (31.0-35.0); Mean Corpuscular Hemoglobin 36.7 pg (27.0-33.0); Mean Platelet Volume 12.4 fL (9.4-12.3); Monocytes Absolute Auto 0.9 X10*3/uL (0.1-1.2); Monocytes Percent Auto 11.6 % (2-11); Neutrophils Absolute Auto 5.8 x10*3/uL (2.0-8.3); Neutrophils Percent Auto 72.9 % (45-73); Red Blood Count 5.21 X10*6/uL (4.20-5.50); Red Cell Distribution Width 13.4 % (11.0-16.0)
[2021-10-11 06:57] LABS: Hematocrit 58.5 % (37.0-47.0); Mean Corpuscular Volume 112.3 fL (80.0-98.0); Platelet Count 87 X10*3/uL (160-400)
[2021-10-11 07:49] LABS: Glucose, Whole Blood 87 mg/dL (60-115)
--- NOTE | 2021-10-11 08:23 | HO.PM.IMPN ---
Subjective Subjective Date of Service: 10/11/21 Interval History: No acute issues overnight. Unable to access for am labs Review of Systems Denies chest pain Denies SOB Denies N/V/D Physical Exam Vital Signs: Vital Signs: Last Vital Signs Temp 98 F 10/11/21 07:20 Pulse 74 10/11/21 07:20 Resp 20 10/11/21 07:20 BP 148/72 H 10/11/21 07:20 Pulse Ox 95 10/11/21 07:20 Oxygen Flow Rate 4 10/01/21 13:30 BMI result Body Mass Index 39.6 Const: Other: no acute distress Resp: Other: clear to auscultation bilaterally no rales rhonchi or wheezes Cardio: Other: no S4; positive S1-S2; no S3 M/R/G GI: Other: soft nontender nondistended with normoactive bowel sounds Extrem: Other: bilateral erythema with chronic venous stasis changes Objective Data Active Medications Amiodarone HCl (Amiodarone Hcl 200 Mg Tablet) 200 mg PO BID [facility] Last Admin: 10/10/21 20:28 Dose: 200 mg Documented by: YENNI Aspirin (Aspirin Enteric Coated 81 Mg Tablet.) 81 mg PO DAILY [facility] Last Admin: 10/10/21 09:41 Dose: 81 mg Documented by: SEBLE Atenolol (Atenolol 100 Mg Tablet) 100 mg PO BID [facility]; Protocol Last Admin: 10/10/21 20:29 Dose: 100 mg Documented by: YENNI Dextrose (Dextrose 50 % 25 Gm/50 Ml Vial) 25 gm IVPUSH Q15M PRN; Protocol PRN Reason: per Hypoglycemia Standing Ord. Digoxin (Digoxin 0.125 Mg Tablet) 0.125 mg PO DAILY [facility] Last Admin: 10/10/21 09:41 Dose: 0.125 mg Documented by: SEBLE Doxycycline Hyclate (Doxycycline Hyclate 100 Mg Tablet) 100 mg PO Q12H [facility] Last Admin: 10/11/21 02:47 Dose: 100 mg Documented by: YENNI Glucose (Glucose Gel 15 Gm Gel..Gram.) 15 gm PO Q15M PRN; Protocol PRN Reason: per Hypoglycemia Standing Ord. Glyburide (Glyburide 5 Mg Tablet) 5 mg PO DAILY [facility] Last Admin: 10/10/21 09:41 Dose: 5 mg Documented by: SEBLE Insulin Glargine (Insulin Glargine,Hum.Rec.Anlog 100 Unit/Ml 10 Ml Vial) 10 unit SUBCUT BEDTIME [facility] Last Admin: 10/10/21 20:29 Dose: 10 unit Documented by: YENNI Insulin Human Lispro (Insulin Lispro 100 Unit/Ml 3 Ml Vial) 0 unit SUBCUT QIDACHS [facility]; Protocol Last Admin: 10/11/21 07:53 Dose: Not Given Documented by: NORMAN Non-Admin Reason: No Insulin Coverage Melatonin (Melatonin 3 Mg Tablet) 6 mg PO BEDTIME PRN PRN Reason: Insomnia Last Admin: 10/06/21 20:14 Dose: 6 mg Documented by: WINSOME Metformin HCl (Metformin Hcl 500 Mg Tablet) 500 mg PO DAILY [facility] Last Admin: 10/10/21 09:41 Dose: 500 mg Documented by: SEBLE Metoprolol Tartrate (Metoprolol Tartrate 5 Mg/5 Ml Vial) 5 mg IVPUSH Q6H PRN PRN Reason: HR>125 Last Admin: 10/06/21 18:47 Dose: 5 mg Documented by: SEBLE Midodrine (Midodrine Hcl 5 Mg Tablet) 5 mg PO BID [facility] Last Admin: 10/10/21 20:29 Dose: 5 mg Documented by: YENNI Pharmacy Consult (Consult Rx Perform Med Rec) 1 each MISCELLANE ONCE PRN PRN Reason: Consult order Senna (Sennosides 8.6 Mg Tablet) 17.2 mg PO BEDTIME PRN PRN Reason: Constipation Sertraline HCl (Sertraline Hcl 25 Mg Tablet) 12.5 mg PO DAILY [facility] Last Admin: 10/10/21 12:17 Dose: 12.5 mg Documented by: SEBLE Sodium Chloride (0.9 % Sodium Chloride Flush 3 Ml Syringe) 3 ml IVFLUSH QSHIFT [facility] Last Admin: 10/10/21 20:30 Dose: 3 ml Documented by: YENNI Labs CBC & Chem 7: 10/11/21 04:40 10/08/21 08:28 Labs: Laboratory Results - last 24 hr 10/10/21 10/10/21 10/10/21 11:08 15:15 19:28 MCV MCH MCHC RDW Plt Count MPV Immature Gran % (Auto) Neut % (Auto) Lymph % (Auto) [place] % (Auto) Eos % (Auto) Baso % (Auto) Lymph # (Auto) [place] # (Auto) Eos # (Auto) Baso # (Auto) Abs Immat Gran (auto) Absolute Neuts (auto) Absolute Nucleated RBC Nucleated RBC % (auto) Anion Gap Estim Creat Clear Calc Estimated GFR POC Glucose 120 H 142 H 132 H Fasting Glucose Calcium Total Bilirubin AST ALT Alkaline Phosphatase Total Protein Albumin 10/11/21 10/11/21 10/11/21 04:40 06:52 07:20 MCV 112.3 H MCH 36.7 H MCHC 32.6 RDW 13.4 Plt Count 87 L D MPV 12.4 H Immature Gran % (Auto) 1.4 H Neut % (Auto) 72.9 Lymph % (Auto) 12.9 L [place] % (Auto) 11.6 H Eos % (Auto) 0.8 Baso % (Auto) 0.4 Lymph # (Auto) 1.0 L [place] # (Auto) 0.9 Eos # (Auto) 0.1 Baso # (Auto) 0.0 Abs Immat Gran (auto) 0.11 H Absolute Neuts (auto) 5.8 Absolute Nucleated RBC 0.000 Nucleated RBC % (auto) 0.0 Anion Gap Cancelled Estim Creat Clear Calc Cancelled Estimated GFR Cancelled POC Glucose 87 Fasting Glucose Cancelled Calcium Cancelled Total Bilirubin Cancelled AST Cancelled ALT Cancelled Alkaline Phosphatase Cancelled Total Protein Cancelled Albumin Cancelled Assessment and Plan (1) Bilateral lower leg cellulitis: Status: Acute (2) Chronic atrial fibrillation: Status: Acute (3) Hyperglycemia due to type 2 diabetes mellitus: Status: Acute Assessment and Plan: 81-year-old female with a past medical history of hypertension, diabetes, diastolic CHF, chronic AFib-not on anticoagulation, chronic lymphedema; presented to the hospital today with a chief complaint of bilateral leg swelling and pain. Was septic on arrival from cellulitis; this has resolved. Awaiting placement 1. Cellulitis Complete 10day course of oral Doxycycline(02/02) 2.AFib with rapid ventricular response likely precipitated by Sepsis.--persistent RVR Acute on chronic; not candidate for anticoag Continue oral amiodarone load as per Cards(BID until 11/05/21); BB as ordered 3. PARKER renal function stable 4. DMII Renal function normalized; Continue Metformin/Glipizide Sliding scale insulin 5.Anxiety Add small dose sertraline and follow response. Titrate to response DVT prophylaxis:? Lovenox Code status: DNI/DNI Quality Stroke Does the patient have a stroke diagnosis?: No VTE Prior VTE?: No VTE Risk Level:: Medical - moderate - high VTE Device Contraindication: Treatment Not Indicated VTE Drug Contraindication: N/A - Med Ordered
[2021-10-11] MEDS: Digoxin 0.125 MG TABLET PO (09:57)
[2021-10-11] MEDS: glyBURIDE 5 MG TABLET PO (09:57)
[2021-10-11] MEDS: Amiodarone HCL 200 MG TABLET PO ×2 (09:57→20:38)
[2021-10-11] MEDS: atenoloL 100 MG TABLET PO ×2 (09:57→20:38)
[2021-10-11] MEDS: Aspirin Enteric Coated 81 MG TABLET.DR PO (09:57)
[2021-10-11] MEDS: 0.9 % Sodium Chloride Flush 3 ML SYRINGE IVFLUSH ×3 (09:57→20:39)
[2021-10-11] MEDS: metFORMIN HCl 500 MG TABLET PO (09:57)
[2021-10-11] MEDS: Sertraline HCL 25 MG TABLET 12.5 MG PO (09:57)
[2021-10-11] MEDS: Midodrine HCl 5 MG TABLET PO ×2 (09:57→20:38)
[2021-10-11 11:27] LABS: Glucose, Whole Blood 109 mg/dL (60-115)
--- NOTE | 2021-10-11 11:42 | P.PNIM_ITS ---
Subjective Subjective Date of Service: 10/11/21 Interval History: Still anxious but improved...no acute events overnight Review of Systems Denies chest pain Denies SOB Denies N/V/D Physical Exam Vital Signs: Vital Signs: Last Vital Signs Temp 97 F 10/11/21 11:03 Pulse 66 10/11/21 11:03 Resp 20 10/11/21 11:03 BP 124/75 10/11/21 11:03 Pulse Ox 93 10/11/21 11:03 Oxygen Flow Rate 4 10/01/21 13:30 BMI result Body Mass Index 39.6 Const: Other: no acute distress Resp: Other: clear to auscultation bilaterally no rales rhonchi or wheezes Cardio: Other: no S4; positive S1-S2; no S3 M/R/G GI: Other: soft nontender nondistended with normoactive bowel sounds Extrem: Other: bilateral erythema with chronic venous stasis changes Objective Data Active Medications Amiodarone HCl (Amiodarone Hcl 200 Mg Tablet) 200 mg PO BID [facility] Last Admin: 10/11/21 09:57 Dose: 200 mg Documented by: NORMAN Aspirin (Aspirin Enteric Coated 81 Mg Tablet.) 81 mg PO DAILY [facility] Last Admin: 10/11/21 09:57 Dose: 81 mg Documented by: NORMAN Atenolol (Atenolol 100 Mg Tablet) 100 mg PO BID [facility]; Protocol Last Admin: 10/11/21 09:57 Dose: 100 mg Documented by: NORMAN Dextrose (Dextrose 50 % 25 Gm/50 Ml Vial) 25 gm IVPUSH Q15M PRN; Protocol PRN Reason: per Hypoglycemia Standing Ord. Digoxin (Digoxin 0.125 Mg Tablet) 0.125 mg PO DAILY [facility] Last Admin: 10/11/21 09:57 Dose: 0.125 mg Documented by: NORMAN Doxycycline Hyclate (Doxycycline Hyclate 100 Mg Tablet) 100 mg PO Q12H [facility] Last Admin: 10/11/21 02:47 Dose: 100 mg Documented by: YENNI Glucose (Glucose Gel 15 Gm Gel..Gram.) 15 gm PO Q15M PRN; Protocol PRN Reason: per Hypoglycemia Standing Ord. Glyburide (Glyburide 5 Mg Tablet) 5 mg PO DAILY [facility] Last Admin: 10/11/21 09:57 Dose: 5 mg Documented by: NORMAN Insulin Glargine (Insulin Glargine,Hum.Rec.Anlog 100 Unit/Ml 10 Ml Vial) 10 unit SUBCUT BEDTIME [facility] Last Admin: 10/10/21 20:29 Dose: 10 unit Documented by: YENNI Insulin Human Lispro (Insulin Lispro 100 Unit/Ml 3 Ml Vial) 0 unit SUBCUT QIDACHS [facility]; Protocol Last Admin: 10/11/21 11:31 Dose: Not Given Documented by: NORMAN Non-Admin Reason: No Insulin Coverage Melatonin (Melatonin 3 Mg Tablet) 6 mg PO BEDTIME PRN PRN Reason: Insomnia Last Admin: 10/06/21 20:14 Dose: 6 mg Documented by: WINSOME Metformin HCl (Metformin Hcl 500 Mg Tablet) 500 mg PO DAILY [facility] Last Admin: 10/11/21 09:57 Dose: 500 mg Documented by: NORMAN Metoprolol Tartrate (Metoprolol Tartrate 5 Mg/5 Ml Vial) 5 mg IVPUSH Q6H PRN PRN Reason: HR>125 Last Admin: 10/06/21 18:47 Dose: 5 mg Documented by: SEBLE Midodrine (Midodrine Hcl 5 Mg Tablet) 5 mg PO BID [facility] Last Admin: 10/11/21 09:57 Dose: 5 mg Documented by: NORMAN Pharmacy Consult (Consult Rx Perform Med Rec) 1 each MISCELLANE ONCE PRN PRN Reason: Consult order Senna (Sennosides 8.6 Mg Tablet) 17.2 mg PO BEDTIME PRN PRN Reason: Constipation Sertraline HCl (Sertraline Hcl 25 Mg Tablet) 12.5 mg PO DAILY [facility] Last Admin: 10/11/21 09:57 Dose: 12.5 mg Documented by: NORMAN Sodium Chloride (0.9 % Sodium Chloride Flush 3 Ml Syringe) 3 ml IVFLUSH QSHIFT [facility] Last Admin: 10/11/21 09:57 Dose: 3 ml Documented by: NORMAN Labs CBC & Chem 7: 10/11/21 04:40 10/08/21 08:28 Labs: Laboratory Results - last 24 hr 10/01/21 10/02/21 10/02/21 14:15 03:33 14:03 Hgb 16.8 H 17.2 H 18.1 H MCV MCH MCHC RDW Plt Count MPV Immature Gran % (Auto) Neut % (Auto) Lymph % (Auto) [place] % (Auto) Eos % (Auto) Baso % (Auto) Lymph # (Auto) [place] # (Auto) Eos # (Auto) Baso # (Auto) Abs Immat Gran (auto) Absolute Neuts (auto) Absolute Nucleated RBC Nucleated RBC % (auto) Anion Gap Estim Creat Clear Calc Estimated GFR POC Glucose Fasting Glucose Calcium Total Bilirubin AST ALT Alkaline Phosphatase Total Protein Albumin 10/03/21 10/04/21 10/08/21 06:47 10:09 05:19 Hgb 16.3 H 17.4 H 18.7 H MCV MCH MCHC RDW Plt Count MPV Immature Gran % (Auto) Neut % (Auto) Lymph % (Auto) [place] % (Auto) Eos % (Auto) Baso % (Auto) Lymph # (Auto) [place] # (Auto) Eos # (Auto) Baso # (Auto) Abs Immat Gran (auto) Absolute Neuts (auto) Absolute Nucleated RBC Nucleated RBC % (auto) Anion Gap Estim Creat Clear Calc Estimated GFR POC Glucose Fasting Glucose Calcium Total Bilirubin AST ALT Alkaline Phosphatase Total Protein Albumin 10/10/21 10/10/21 10/11/21 15:15 19:28 04:40 Hgb 19.1 H MCV 112.3 H MCH 36.7 H MCHC 32.6 RDW 13.4 Plt Count 87 L D MPV 12.4 H Immature Gran % (Auto) 1.4 H Neut % (Auto) 72.9 Lymph % (Auto) 12.9 L [place] % (Auto) 11.6 H Eos % (Auto) 0.8 Baso % (Auto) 0.4 Lymph # (Auto) 1.0 L [place] # (Auto) 0.9 Eos # (Auto) 0.1 Baso # (Auto) 0.0 Abs Immat Gran (auto) 0.11 H Absolute Neuts (auto) 5.8 Absolute Nucleated RBC 0.000 Nucleated RBC % (auto) 0.0 Anion Gap Estim Creat Clear Calc Estimated GFR POC Glucose 142 H 132 H Fasting Glucose Calcium Total Bilirubin AST ALT Alkaline Phosphatase Total Protein Albumin 10/11/21 10/11/21 10/11/21 06:52 07:20 11:03 Hgb MCV MCH MCHC RDW Plt Count MPV Immature Gran % (Auto) Neut % (Auto) Lymph % (Auto) [place] % (Auto) Eos % (Auto) Baso % (Auto) Lymph # (Auto) [place] # (Auto) Eos # (Auto) Baso # (Auto) Abs Immat Gran (auto) Absolute Neuts (auto) Absolute Nucleated RBC Nucleated RBC % (auto) Anion Gap Cancelled Estim Creat Clear Calc Cancelled Estimated GFR Cancelled POC Glucose 87 109 Fasting Glucose Cancelled Calcium Cancelled Total Bilirubin Cancelled AST Cancelled ALT Cancelled Alkaline Phosphatase Cancelled Total Protein Cancelled Albumin Cancelled Assessment and Plan Assessment and Plan: 81-year-old female with a past medical history of hypertension, diabetes, diastolic CHF, chronic AFib-not on anticoagulation, chronic lymphedema; presented to the hospital today with a chief complaint of bilateral leg swelling and pain. Was septic on arrival from cellulitis; this has resolved. Awaiting placement 1. Cellulitis Complete 10day course of oral Doxycycline(02/02) 2.AFib with rapid ventricular response likely precipitated by Sepsis.--persistent RVR Acute on chronic; not candidate for anticoag Continue oral amiodarone load as per Cards(BID until 11/05/21); BB as ordered 3. PARKER renal function stable 4. DMII Renal function normalized; Continue Metformin/Glipizide Sliding scale insulin 5.Anxiety Add small dose sertraline and follow response. Titrate to response DVT prophylaxis:? Lovenox Code status: DNI/DNI Quality Stroke Does the patient have a stroke diagnosis?: No VTE Prior VTE?: No VTE Risk Level:: Medical - moderate - high VTE Device Contraindication: Treatment Not Indicated VTE Drug Contraindication: N/A - Med Ordered
--- NOTE | 2021-10-11 13:23 | MHC.CM.PN ---
CM CONTACTED SNF'S TO DETERMINE IF THEY WOULD HAVE A BED FOR PT, REFERRALS UPDATED AND RESENT. AWAITING RESPONSE FROM [facility], CM WILL CONT TO FOLLOW D/C NEEDS.
[2021-10-11 16:26] LABS: Glucose, Whole Blood 110 mg/dL (60-115)
[2021-10-11 20:22] LABS: Glucose, Whole Blood 110 mg/dL (60-115)
[2021-10-11] MEDS: Insulin Glargine,Hum.rec.anlog 100 UNIT/ML 10 ML VIAL 10 UNIT SUBCUT (20:38)
[2021-10-12 03:02] VITALS: BP 134/91; PULSE 80; RESP 20; TEMP 36.7; O2SAT 94
[2021-10-12 04:47] LABS: MANUAL DIFF FLAG NO
[2021-10-12 04:57] LABS: Imm Gran Abs Auto 0.08 X10*3/uL (0.00-0.03); PLT CLUMP 1; SCAN SMEAR FLAG 1
[2021-10-12 04:59] LABS: Basophils Percent Auto 0.2 % (0-2); Eosinophils Absolute Auto 0.1 X10*3/uL (0.0-0.4); Eosinophils Percent Auto 0.6 % (0-4); Imm Gran Pct Auto 0.9 % (0.0-0.4); Lymphocytes Absolute Auto 1.1 X10*3/uL (1.2-4.9); Lymphocytes Percent Auto 13.1 % (20-40); Mean Corpuscular HGB Conc 33.3 g/dl (31.0-35.0); Mean Corpuscular Hemoglobin 36.1 pg (27.0-33.0); Mean Corpuscular Volume 108.6 fL (80.0-98.0); Mean Platelet Volume 11.2 fL (9.4-12.3); Monocytes Absolute Auto 0.8 X10*3/uL (0.1-1.2); Monocytes Percent Auto 9.1 % (2-11); Neutrophils Absolute Auto 6.5 x10*3/uL (2.0-8.3); Neutrophils Percent Auto 76.1 % (45-73); Red Blood Count 5.26 X10*6/uL (4.20-5.50); Red Cell Distribution Width 13.3 % (11.0-16.0)
[2021-10-12 05:03] LABS: Hematocrit 57.1 % (37.0-47.0); Platelet Count 100 X10*3/uL (160-400); White Blood Count 8.5 X10*3/uL (4.8-10.8)
[2021-10-12 05:30] VITALS: BMI 40.2
[2021-10-12 05:41] LABS: Alanine Aminotransferase 24 U/L (0-31); Alkaline Phosphatase 75 U/L (39-117); Anion Gap 11 (12-20); Aspartate Amino Transferase 25 U/L (5-31); Blood Urea Nitrogen 27 mg/dL (9-16); Calcium 9.5 mg/dL (8.4-10.2); Carbon Dioxide 28 mmol/L (22-29); Chloride 109 mmol/L (96-108); Creatinine Clr Calc Pharmacy 52.8; Estimated Glomerular Filt Rate 51; Potassium 5.3 mmol/L (3.3-5.1); Sodium 143 mmol/L (135-145); Total Protein 5.5 g/dL (6.5-8.0)
[2021-10-12 05:47] LABS: Glucose Fasting 50 mg/dL (60-99)
[2021-10-12] MEDS: Glucose Gel 15 GM GEL..GRAM. PO (05:50)
[2021-10-12 06:20] LABS: Glucose, Whole Blood 71 mg/dL (60-115)
[2021-10-12] MEDS: Dextrose 50 % 25 GM/50 ML SYRINGE IVPUSH (06:48)
[2021-10-12 07:16] VITALS: BP 131/76; PULSE 82; RESP 18; TEMP 36; O2SAT 96
[2021-10-12 07:40] LABS: Glucose, Whole Blood 232 mg/dL (60-115)
[2021-10-12] MEDS: Sertraline HCL 25 MG TABLET 12.5 MG PO (07:59)
[2021-10-12] MEDS: metFORMIN HCl 500 MG TABLET PO (08:00)
[2021-10-12] MEDS: atenoloL 100 MG TABLET PO ×2 (08:00→20:51)
[2021-10-12] MEDS: glyBURIDE 5 MG TABLET PO (08:00)
[2021-10-12] MEDS: Aspirin Enteric Coated 81 MG TABLET.DR PO (08:00)
[2021-10-12] MEDS: Digoxin 0.125 MG TABLET PO (08:00)
[2021-10-12] MEDS: Amiodarone HCL 200 MG TABLET PO ×2 (08:00→20:51)
[2021-10-12] MEDS: 0.9 % Sodium Chloride Flush 3 ML SYRINGE IVFLUSH ×3 (08:01→20:52)
[2021-10-12] MEDS: Midodrine HCl 5 MG TABLET PO ×2 (08:01→20:51)
--- NOTE | 2021-10-12 08:11 | PM.HEMONCCN ---
Subjective - Subjective Chief complaint: Weakness Patient: new to practice Consult date: 10/12/21 Requesting Physician: Dr. Sanket bender Primary Care Provider: Santy Muse MD HPI - Consult Narrative Reason for consult: polycythemia Narrative: Debra Yu is a 81 year old female who was admitted on 10/01/2021 with complaints of bilateral leg pain and swelling. Patient is a very poor historian and offers no complaints at all today. As per chart review, she reported swelling of her legs as well as shortness of breath and exertional dyspnea. Patient takes Lasix. She did not have any other complaints such as chest pain, palpitation or dizziness. No nausea, emesis or change in bowel habits. She was treated with Lasix for renal insufficiency and mild congestive heart failure. On admission her hemoglobin was 16.8 gram/dL, gradually it has increased to 19 gram/dL. In July 2018 her hemoglobin was 15.3 gram/dL. She has chronic macrocytosis and new onset thrombocytopenia. She had normal platelet counts in July 2018. Leukocytosis noted on admission has since resolved. She is being treated for cellulitis. Lower extremity Dopplers were negative for thrombosis as was V/Q scan. She has chronic atrial fibrillation and she has refused anticoagulation. This time she denies any complaints such as chest pain, dizziness, facial flushing or pruritus. She does admit to weakness and some shortness of breath. Review of Systems - Constitutional Reports as per HPI, Reports no additional constitutional complaints - Neurologic Reports no additional neurologic complaints, Denies syncope, Reports weakness Oncology Screenings - ECOG Performance Status ECOG Performance Status: 3 [facility] Medical History: Medical History (Last Reviewed 10/07/21 @ 10:31 by ZACH Nice-Eric) (HFpEF) heart failure with preserved ejection fraction Chronic atrial fibrillation Diabetes mellitus HTN (hypertension) Redness and swelling of lower leg Family History: Family History (Last Reviewed 10/05/21 @ 16:07 by Lisa Huggins MD) Father No problems noted. Mother CVD (cardiovascular disease) Family history: reviewed and not pertinent Social History: Social History (Last Reviewed 10/05/21 @ 16:07 by Lisa Huggins MD) Occupation Assessmet: service: No Current occupational status: unemployed Home Medications and Allergies Current Medications: Current Medications Amiodarone HCl (Amiodarone Hcl 200 Mg Tablet) 200 mg PO BID [facility] Last Admin: 10/12/21 08:00 Dose: 200 mg Documented by: Aspirin (Aspirin Enteric Coated 81 Mg Tablet.) 81 mg PO DAILY [facility] Last Admin: 10/12/21 08:00 Dose: 81 mg Documented by: Atenolol (Atenolol 100 Mg Tablet) 100 mg PO BID [facility]; Protocol Last Admin: 10/12/21 08:00 Dose: 100 mg Documented by: Dextrose (Dextrose 50 % 25 Gm/50 Ml Syringe) 25 gm IVPUSH Q15M PRN; Protocol PRN Reason: HYPOGLYCEMIA Last Admin: 10/12/21 06:48 Dose: 25 gm Documented by: Digoxin (Digoxin 0.125 Mg Tablet) 0.125 mg PO DAILY [facility] Last Admin: 10/12/21 08:00 Dose: 0.125 mg Documented by: Doxycycline Hyclate (Doxycycline Hyclate 100 Mg Tablet) 100 mg PO Q12H [facility] Last Admin: 10/12/21 01:53 Dose: 100 mg Documented by: Glucose (Glucose Gel 15 Gm Gel..Gram.) 15 gm PO Q15M PRN; Protocol PRN Reason: per Hypoglycemia Standing Ord. Last Admin: 10/12/21 05:50 Dose: 15 gm Documented by: Glyburide (Glyburide 5 Mg Tablet) 5 mg PO DAILY [facility] Last Admin: 10/12/21 08:00 Dose: 5 mg Documented by: Insulin Glargine (Insulin Glargine,Hum.Rec.Anlog 100 Unit/Ml 10 Ml Vial) 10 unit SUBCUT BEDTIME [facility] Last Admin: 10/11/21 20:38 Dose: 10 unit Documented by: Insulin Human Lispro (Insulin Lispro 100 Unit/Ml 3 Ml Vial) 0 unit SUBCUT QIDACHS [facility]; Protocol Last Admin: 10/12/21 07:40 Dose: Not Given Documented by: Melatonin (Melatonin 3 Mg Tablet) 6 mg PO BEDTIME PRN PRN Reason: Insomnia Last Admin: 10/06/21 20:14 Dose: 6 mg Documented by: Metformin HCl (Metformin Hcl 500 Mg Tablet) 500 mg PO DAILY [facility] Last Admin: 10/12/21 08:00 Dose: 500 mg Documented by: Metoprolol Tartrate (Metoprolol Tartrate 5 Mg/5 Ml Vial) 5 mg IVPUSH Q6H PRN PRN Reason: HR>125 Last Admin: 10/06/21 18:47 Dose: 5 mg Documented by: Midodrine (Midodrine Hcl 5 Mg Tablet) 5 mg PO BID [facility] Last Admin: 10/12/21 08:01 Dose: 5 mg Documented by: Pharmacy Consult (Consult Rx Perform Med Rec) 1 each MISCELLANE ONCE PRN PRN Reason: Consult order Senna (Sennosides 8.6 Mg Tablet) 17.2 mg PO BEDTIME PRN PRN Reason: Constipation Sertraline HCl (Sertraline Hcl 25 Mg Tablet) 12.5 mg PO DAILY [facility] Last Admin: 10/12/21 07:59 Dose: 12.5 mg Documented by: Sodium Chloride (0.9 % Sodium Chloride Flush 3 Ml Syringe) 3 ml IVFLUSH QSHIFT [facility] Last Admin: 10/12/21 08:01 Dose: 3 ml Documented by: Home Medications Medication Instructions Recorded Confirmed Type aspirin 81 mg tablet,delayed 81 mg PO DAILY 08/13/20 10/01/21 History release (Adult Low Dose Aspirin) furosemide 20 mg tablet (Lasix) 20 mg PO DAILY 08/13/20 10/01/21 History glyburide 5 mg tablet 5 mg PO DAILY 08/13/20 10/01/21 History metformin 500 mg tablet 500 mg PO DAILY 08/13/20 10/01/21 History atenolol 25 mg tablet 100 mg PO BID tab 02/12/21 10/01/21 History Allergies Allergy/AdvReac Type Severity Reaction Status Date / Time acetaminophen [From VICODIN] Allergy Unknown UNKNOWN Verified 10/01/21 15:41 acyclovir [ACYCLOVIR] Allergy Unknown HALLUCINATI Verified 10/01/21 15:41 ONS adhesive tape Allergy Unknown ALL TAPE Verified 10/01/21 15:41 SKIN EROSION amlodipine [From NORVASC] Allergy Unknown PEADAL Verified 10/01/21 15:41 EDEMA fluconazole [From DIFLUCAN] Allergy Unknown RASH/SWELLI Verified 10/01/21 15:41 NG hydralazine [HYDRALAZINE] Allergy Unknown CONFUSION Verified 10/01/21 15:41 hydrochlorothiazide Allergy Unknown UNKNOWN Verified 10/01/21 15:41 [HYDROCHLOROTHIAZIDE] hydrocodone [From VICODIN] Allergy Unknown SWELLING/ED Verified 10/01/21 15:41 CARMINA Iodinated Contrast Media Allergy Unknown ON Verified 10/01/21 15:41 [Iodinated Contrast Media - GLUCOPHAGE IV Dye] lisinopril [LISINOPRIL] Allergy Unknown LEG CRAMPS Verified 10/01/21 15:41 losartan [From COZAAR] Allergy Unknown UNKNOWN Verified 10/01/21 15:41 meperidine [From DEMEROL] Allergy Unknown ITCHING/PRU Verified 10/01/21 15:41 RITIS oxycodone [From PERCOCET] Allergy Unknown HALLUCINAT Verified 10/01/21 15:41 IONS simvastatin [SIMVASTATIN] Allergy Unknown PAIN IN Verified 10/01/21 15:41 FEET+UP LEGS Tetanus Vaccines and Toxoid Allergy Unknown ARMS SWELL Verified 10/01/21 15:41 [Tetanus Vaccines & Toxoid] valsartan [VALSARTAN] Allergy Unknown RINGING IN Verified 10/01/21 15:41 EARS Adhesive Tape Allergy Unknown Unknown Uncoded 10/01/21 15:41 IVP dye Allergy Unknown Unknown Uncoded 10/01/21 15:41 Tetanus Allergy Unknown Unknown Uncoded 10/01/21 15:41 Vicodin Allergy Unknown Unknown Uncoded 10/01/21 15:41 Physical Exam Vital signs: Vital Signs Temp 96.8 F 10/12/21 07:16 Pulse 82 10/12/21 07:16 Resp 18 10/12/21 07:16 BP 131/76 10/12/21 07:16 Pulse Ox 96 10/12/21 07:16 Intake & Output 10/11/21 10/12/21 10/12/21 18:59 06:59 18:59 Intake Total 180 / 660 480 / 660 Output Total 400 / 400 Balance 180 / 260 80 / 260 Urine Output (Average ml/kg/hr) 0.29 Intake: Intake, Oral Amount 180 / 660 480 / 660 Output: Output, Urine Amount 200 / 200 Output, Urine Amount (Catheter) 200 / 200 Cobb 200 / 200 Other: Breakfast % Eaten 25% Lunch % Eaten 25% Urine Color Michael Weight 113.2 kg [place] Weight in Grams [id number] Weight 113.2 kg - Constitutional Present: mild distress, obese - Routine HEENT Exam Head: Absent: facial swelling Eye: Present: conjunctivae pink - Routine Neck Exam Absent: lymphadenopathy - Routine Respiratory Exam Present: CTAB. Absent: respiratory distress Comments: Appears slightly dyspneic - Routine Cardiovascular Exam Cardiovascular: Present: RRR, S1, S2 - Routine Abdominal Exam Present: soft Hem/Onc Consult Result - Labs CBC & Chem 7: 10/12/21 04:27 10/12/21 04:27 Labs: Short CBC 10/12/21 Range/Units 04:27 WBC 8.5 (4.8-10.8) X10*3/uL Hgb 19.0 H (12.0-16.0) g/dl Hct 57.1 H (37.0-47.0) % Plt Count 100 L (160-400) X10*3/uL BMP 10/11/21 10/12/21 06:52 04:27 Sodium Cancelled 143 Potassium Cancelled 5.3 H Chloride Cancelled 109 H Carbon Dioxide Cancelled 28 BUN Cancelled 27 H Creatinine Cancelled 1.03 Calcium Cancelled 9.5 Liver Function 10/11/21 10/12/21 Range/Units 06:52 04:27 Total Bilirubin Cancelled 2.0 H AST Cancelled 25 ALT Cancelled 24 Alkaline Phosphatase Cancelled 75 Albumin Cancelled 3.0 L Assessment and Plan Patient Active problem list reviewed?: Yes (1) Polycythemia Status: Acute Assessment and plan: 1. This is a 81-year-old woman with history of chronic atrial fibrillation/congestive heart failure admitted for cellulitis and found to have polycythemia. In 2018 her blood counts were normal. No intervening CBC to compare but on admission her hemoglobin was 16.8 gram/dL which is consistent with polycythemia. This has steadily increased during the admission. Part of this could be secondary to diuresis with IV Lasix for congestive heart failure and poor oral hydration. Leukocytosis has resolved but she has thrombocytopenia which is of new onset. She quit smoking many years ago and she does not give a history of lung problems such as COPD or sleep apnea. She has significant macrocytosis. Vitamin B12 and folic acid levels are pending. No history of alcoholism or liver problems. Patient has polycythemia which could be primary polycythemia with superimposed volume contraction secondary to diuresis. I have recommended therapeutic phlebotomy of 250 cc of blood. This may improve her dyspnea. This no evidence of thrombosis, her lower extremity Doppler as well as V/Q scan were negative. She has had mild thrombocytopenia in the past with some worsening noted on blood work today. 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 I also recommend ultrasound abdomen to look for hepatosplenomegaly. Thank you for the consultation. - Time Spent With Patient Time Spent with Patient (in minutes): 20
[2021-10-12 08:30] LABS: Immature Retic Fraction 6.6 % (3.0-15.9); Retic HGB Equivalent 40.7 pg (30.0-35.0); Reticulocyte Percent 1.9 % (0.5-1.8)
[2021-10-12 08:40] LABS: Lactate Dehydrogenase 354 U/L (122-220)
[2021-10-12 09:31] LABS: Folate 4.9 ng/mL (> or = 4.0); Vitamin B12 > 2000 pg/mL (200-900)
[2021-10-12 10:25] LABS: Glucose, Whole Blood 85 mg/dL (60-115)
--- NOTE | 2021-10-12 10:45 | HO.PM.IMPN ---
Subjective Subjective Date of Service: 10/12/21 Interval History: No acute events overnight. Remains anxious. Physical Exam Vital Signs: Vital Signs: Last Vital Signs Temp 96.8 F 10/12/21 07:16 Pulse 82 10/12/21 07:16 Resp 18 10/12/21 07:16 BP 131/76 10/12/21 07:16 Pulse Ox 96 10/12/21 07:16 Oxygen Flow Rate 4 10/01/21 13:30 BMI result Body Mass Index 40.2 Objective Data Active Medications Amiodarone HCl (Amiodarone Hcl 200 Mg Tablet) 200 mg PO BID [facility] Last Admin: 10/12/21 08:00 Dose: 200 mg Documented by: KARI Aspirin (Aspirin Enteric Coated 81 Mg Tablet.Dr) 81 mg PO DAILY [facility] Last Admin: 10/12/21 08:00 Dose: 81 mg Documented by: KARI Atenolol (Atenolol 100 Mg Tablet) 100 mg PO BID [facility]; Protocol Last Admin: 10/12/21 08:00 Dose: 100 mg Documented by: KARI Dextrose (Dextrose 50 % 25 Gm/50 Ml Syringe) 25 gm IVPUSH Q15M PRN; Protocol PRN Reason: HYPOGLYCEMIA Last Admin: 10/12/21 06:48 Dose: 25 gm Documented by: FRITZ Digoxin (Digoxin 0.125 Mg Tablet) 0.125 mg PO DAILY [facility] Last Admin: 10/12/21 08:00 Dose: 0.125 mg Documented by: KARI Doxycycline Hyclate (Doxycycline Hyclate 100 Mg Tablet) 100 mg PO Q12H [facility] Last Admin: 10/12/21 01:53 Dose: 100 mg Documented by: FRITZ Glucose (Glucose Gel 15 Gm Gel..Gram.) 15 gm PO Q15M PRN; Protocol PRN Reason: per Hypoglycemia Standing Ord. Last Admin: 10/12/21 05:50 Dose: 15 gm Documented by: FRITZ Glyburide (Glyburide 5 Mg Tablet) 5 mg PO DAILY [facility] Last Admin: 10/12/21 08:00 Dose: 5 mg Documented by: KARI Insulin Glargine (Insulin Glargine,Hum.Rec.Anlog 100 Unit/Ml 10 Ml Vial) 10 unit SUBCUT BEDTIME [facility] Last Admin: 10/11/21 20:38 Dose: 10 unit Documented by: CALISTARISDragan Insulin Human Lispro (Insulin Lispro 100 Unit/Ml 3 Ml Vial) 0 unit SUBCUT JANETDAMICHEAL [facility]; Protocol Last Admin: 10/12/21 07:40 Dose: Not Given Documented by: KARI Non-Admin Reason: Held because her BS was very low Melatonin (Melatonin 3 Mg Tablet) 6 mg PO BEDTIME PRN PRN Reason: Insomnia Last Admin: 10/06/21 20:14 Dose: 6 mg Documented by: WINSOME Metformin HCl (Metformin Hcl 500 Mg Tablet) 500 mg PO DAILY [facility] Last Admin: 10/12/21 08:00 Dose: 500 mg Documented by: KARI Metoprolol Tartrate (Metoprolol Tartrate 5 Mg/5 Ml Vial) 5 mg IVPUSH Q6H PRN PRN Reason: HR>125 Last Admin: 10/06/21 18:47 Dose: 5 mg Documented by: SEBLE Midodrine (Midodrine Hcl 5 Mg Tablet) 5 mg PO BID [facility] Last Admin: 10/12/21 08:01 Dose: 5 mg Documented by: KARI Pharmacy Consult (Consult Rx Perform Med Rec) 1 each MISCELLANE ONCE PRN PRN Reason: Consult order Senna (Sennosides 8.6 Mg Tablet) 17.2 mg PO BEDTIME PRN PRN Reason: Constipation Sertraline HCl (Sertraline Hcl 25 Mg Tablet) 12.5 mg PO DAILY [facility] Last Admin: 10/12/21 07:59 Dose: 12.5 mg Documented by: KARI Sodium Chloride (0.9 % Sodium Chloride Flush 3 Ml Syringe) 3 ml IVFLUSH QSHIFT [facility] Last Admin: 10/12/21 08:01 Dose: 3 ml Documented by: KARI Labs CBC & Chem 7: 10/12/21 04:27 10/12/21 04:27 Labs: Laboratory Results - last 24 hr 10/09/21 10/11/21 10/11/21 11:16 11:03 16:04 MCV MCH MCHC RDW Plt Count MPV Immature Gran % (Auto) Neut % (Auto) Lymph % (Auto) [place] % (Auto) Eos % (Auto) Baso % (Auto) Lymph # (Auto) [place] # (Auto) Eos # (Auto) Baso # (Auto) Abs Immat Gran (auto) Absolute Neuts (auto) Absolute Nucleated RBC Nucleated RBC % (auto) Absolute Retic Percent Retic Immature Retic Fraction Retic Hgb Equivalent Anion Gap Estim Creat Clear Calc Estimated GFR POC Glucose 85 109 110 Fasting Glucose Calcium Total Bilirubin AST ALT Alkaline Phosphatase Lactate Dehydrogenase Total Protein Albumin Vitamin B12 Folate 10/11/21 10/12/21 10/12/21 20:06 04:27 04:27 MCV 108.6 H MCH 36.1 H MCHC 33.3 RDW 13.3 Plt Count 100 L MPV 11.2 Immature Gran % (Auto) 0.9 H Neut % (Auto) 76.1 H Lymph % (Auto) 13.1 L [place] % (Auto) 9.1 Eos % (Auto) 0.6 Baso % (Auto) 0.2 Lymph # (Auto) 1.1 L [place] # (Auto) 0.8 Eos # (Auto) 0.1 Baso # (Auto) 0.0 Abs Immat Gran (auto) 0.08 H Absolute Neuts (auto) 6.5 Absolute Nucleated RBC 0.000 Nucleated RBC % (auto) 0.0 Absolute Retic 0.100 H Percent Retic 1.9 H Immature Retic Fraction 6.6 Retic Hgb Equivalent 40.7 H Anion Gap 11 L Estim Creat Clear Calc 52.8 Estimated GFR 51 POC Glucose 110 Fasting Glucose 50 L* Calcium 9.5 Total Bilirubin 2.0 H AST 25 ALT 24 Alkaline Phosphatase 75 Lactate Dehydrogenase 354 H Total Protein 5.5 L Albumin 3.0 L Vitamin B12 Folate 10/12/21 10/12/21 10/12/21 04:27 06:17 07:14 MCV MCH MCHC RDW Plt Count MPV Immature Gran % (Auto) Neut % (Auto) Lymph % (Auto) [place] % (Auto) Eos % (Auto) Baso % (Auto) Lymph # (Auto) [place] # (Auto) Eos # (Auto) Baso # (Auto) Abs Immat Gran (auto) Absolute Neuts (auto) Absolute Nucleated RBC Nucleated RBC % (auto) Absolute Retic Percent Retic Immature Retic Fraction Retic Hgb Equivalent Anion Gap Estim Creat Clear Calc Estimated GFR POC Glucose 71 232 H Fasting Glucose Calcium Total Bilirubin AST ALT Alkaline Phosphatase Lactate Dehydrogenase Total Protein Albumin Vitamin B12 > 2000 H Folate 4.9 Quality Stroke Does the patient have a stroke diagnosis?: No VTE Prior VTE?: No VTE Risk Level:: Medical - moderate - high VTE Device Contraindication: Treatment Not Indicated VTE Drug Contraindication: N/A - Med Ordered
--- NOTE | 2021-10-12 10:52 | PC.NURSE ---
Skin/wound assessment completed today. Patient has bilateral leg cellulitis with openings on both legs. Patient also has a DTI on left heel. Fungal rash to abdominal folds and bilateral breasts. Redness to tiffanie area. Interdry applied to breasts and abdominal folds, xeroform applied to open areas on legs. barrier cream to red areas in tiffanie area. Scattered bruising on bilateral arms with edema present.
[2021-10-12 11:43] LABS: Glucose, Whole Blood 143 mg/dL (60-115)
[2021-10-12 12:00] VITALS: BP 120/95; PULSE 73; RESP 18; TEMP 36.4; O2SAT 97
--- NOTE | 2021-10-12 12:30 | P.DS_ITS ---
DS: Providers Provider Date of Service: 10/12/21 Date of admission: 10/01/21 22:31 Date of discharge: 10/12/21 Primary care physician: Santy Muse MD Consults: 10/01/21 22:31 Consult to Cardiology Routine Consulting Provider: Fabrice Hughes Reason for consultation: afib RVR/ CHF 10/02/21 01:20 Consult to Infectious Diseases Routine Consulting Provider: Lisa Huggins Reason for consultation: cellulitis 10/02/21 12:03 Consult to Critical Care Routine Consulting Provider: Vargas Mcallister Reason for consultation: Septic shock Has provider been notified: No 10/11/21 11:45 Consult to Hematology / Oncology Routine Consulting Provider: Vanna Weeks Reason for consultation: polycytheia Has provider been notified: No DS: Diagnosis Discharge Diagnosis (1) Polycythemia: Status: Acute (2) Bilateral lower leg cellulitis: Status: Acute (3) Chronic atrial fibrillation: Status: Acute (4) HTN (hypertension): Status: Acute (5) Diabetes mellitus: Status: Acute DS: Summary Hospital Course Hospital Course: 81-year-old female with a past medical history of hypertension, diabetes, diastolic CHF, chronic AFib-not on anticoagulation, chronic lymphedema; presented to the hospital today with a chief complaint of bilateral leg swelling and pain.?Patient reports that she has has been noticing increased pain and swelling in her legs for the past few weeks; also complains of shortness of breath and dyspnea on exertion.? Denies any cough or fevers.? ER course Reevaluation #1: Patient with atrial fibrillation initial blood pressure reading was 77/60 repeat blood pressure reading was 10/23/2074 low blood pressure reading is likely from atrial fibrillation tachycardia is not from sepsis, patient is afebrile with atrial fibrillation with hyperglycemia and hypoperfusion will give IV fluid cautiously IV Cardizem for tachycardia in lower doses start IV Rocephin for cellulitis lower extremity wait for the labs, check POC Time: 13:58 Reevaluation #2: Lab workup showed blood sugar of 646 will give subQ Humalog according to patient was not compliant to her diet during? Olga Lidia time takes only metformin will give Humalog lab also shows achy IV creatinine increased to 1.79 with potassium of 5.5 bicarb of 15 and anion gap of 19.? Will give 2 L of IV fluid continue Humalog subQ was given Cardizem IV Time: 14:30 Reevaluation #3: Patient's heart rate is less than 100 AFib blood pressure improved to 107/90 patient is more alert and awake received 3 doses of Humalog and Lantus was given, lactic acid slightly elevated 2.8 multifactorial secondary to PARKER along with patient is on metformin also has cellulitis of lower extremity will add vancomycin to cover MRSA also will get venous Doppler to rule out DVT Hospital course patient started on Cardizem drip and transfer to telemetry. Venous Doppler negative. Seen by Cardiology, who DC Cardizem in favor of amiodarone. Ventricular response rate responded well to therapies. Patient was treated by vancomycin and seen by infectious disease who recommended switching to a course of oral doxycycline. legs remain edematous but not cellulitic. Patient did developed polycythemia with a hemoglobin reaching 19.8. She was seen by Oncology who recommended a therapeutic phlebotomy. She underwent this on 10/12/2021. She will need to follow up with Dr. Chavez as an outpatient in the office. Patient was extremely anxious and was started on a small dose of sertraline; this can be titrated by receiving physician as indicated. her estimated stay would be less than 30 days Time Spent with Patient Time attestation: Total time spent providing and/or coordinating discharge services: Discharge coordination time: Greater than 30 minutes Quality: Stroke Does the patient have a stroke diagnosis?: No Physical Exam Verdana 4l Vital Signs: Verdana 4d Verdana 4d Vital Signs: Verdana 4d Verdana 4Bd Last Vital Signs Verdana 4d Senior Contracts Administrator New 4d Senior Contracts Administrator New 4d Temp 97.5 F 10/12/21 12:00 Senior Contracts Administrator New 4d Pulse 73 10/12/21 12:00 Senior Contracts Administrator NewNew 4d Resp 18 10/12/21 12:00 BP 120/95 H 10/12/21 12:00 Pulse Ox 97 10/12/21 12:00 Oxygen Flow Rate 4 10/01/21 13:30 BMI result Body Mass Index 40.2 Const: Other: anxious; no acute distress Resp: Other: clear to auscultation bilaterally no rales rhonchi wheezes Cardio: Other: no S4; positive S1-S2; no S3 murmurs rubs or gallops GI: Other: soft nontender nondistended with normoactive bowel sounds. No rebound or guarding Extrem: Other: bilateral edema with improved erythema DS: Data Data Completed and Pending Labs on day of discharge: Laboratory Results - last 24 hr 10/09/21 10/11/21 10/11/21 11:16 16:04 20:06 WBC RBC Hgb Hct MCV MCH MCHC RDW Plt Count MPV Immature Gran % (Auto) Neut % (Auto) Lymph % (Auto) [place] % (Auto) Eos % (Auto) Baso % (Auto) Lymph # (Auto) [place] # (Auto) Eos # (Auto) Baso # (Auto) Abs Immat Gran (auto) Absolute Neuts (auto) Absolute Nucleated RBC Nucleated RBC % (auto) Absolute Retic Percent Retic Immature Retic Fraction Retic Hgb Equivalent Sodium Potassium Chloride Carbon Dioxide Anion Gap BUN Creatinine Estim Creat Clear Calc Estimated GFR POC Glucose 85 110 110 Fasting Glucose Calcium Total Bilirubin AST ALT Alkaline Phosphatase Lactate Dehydrogenase Total Protein Albumin Vitamin B12 Folate 10/12/21 10/12/21 10/12/21 04:27 04:27 04:27 WBC 8.5 RBC 5.26 Hgb 19.0 H Hct 57.1 H MCV 108.6 H MCH 36.1 H MCHC 33.3 RDW 13.3 Plt Count 100 L MPV 11.2 Immature Gran % (Auto) 0.9 H Neut % (Auto) 76.1 H Lymph % (Auto) 13.1 L [place] % (Auto) 9.1 Eos % (Auto) 0.6 Baso % (Auto) 0.2 Lymph # (Auto) 1.1 L [place] # (Auto) 0.8 Eos # (Auto) 0.1 Baso # (Auto) 0.0 Abs Immat Gran (auto) 0.08 H Absolute Neuts (auto) 6.5 Absolute Nucleated RBC 0.000 Nucleated RBC % (auto) 0.0 Absolute Retic 0.100 H Percent Retic 1.9 H Immature Retic Fraction 6.6 Retic Hgb Equivalent 40.7 H Sodium 143 Potassium 5.3 H Chloride 109 H Carbon Dioxide 28 Anion Gap 11 L BUN 27 H Creatinine 1.03 Estim Creat Clear Calc 52.8 Estimated GFR 51 POC Glucose Fasting Glucose 50 L* Calcium 9.5 Total Bilirubin 2.0 H AST 25 ALT 24 Alkaline Phosphatase 75 Lactate Dehydrogenase 354 H Total Protein 5.5 L Albumin 3.0 L Vitamin B12 > 2000 H Folate 4.9 10/12/21 10/12/21 10/12/21 06:17 07:14 11:21 WBC RBC Hgb Hct MCV MCH MCHC RDW Plt Count MPV Immature Gran % (Auto) Neut % (Auto) Lymph % (Auto) [place] % (Auto) Eos % (Auto) Baso % (Auto) Lymph # (Auto) [place] # (Auto) Eos # (Auto) Baso # (Auto) Abs Immat Gran (auto) Absolute Neuts (auto) Absolute Nucleated RBC Nucleated RBC % (auto) Absolute Retic Percent Retic Immature Retic Fraction Retic Hgb Equivalent Sodium Potassium Chloride Carbon Dioxide Anion Gap BUN Creatinine Estim Creat Clear Calc Estimated GFR POC Glucose 71 232 H 143 H Fasting Glucose Calcium Total Bilirubin AST ALT Alkaline Phosphatase Lactate Dehydrogenase Total Protein Albumin Vitamin B12 Folate Discharge Plan Discharge Patient Disposition: Xfer Inpatient Rehab Fac Discharge Diagnosis: Cellulitis Referrals: Physician,Unknown J [Physician] - 1 Week Discharge Medications: New digoxin 125 mcg (0.125 mg) Tablet 125 mcg PO DAILY Qty: 30 RF: 0 midodrine 5 mg Tablet 5 mg PO BID Qty: 60 RF: 0 amiodarone 200 mg Tablet 200 mg PO BID Qty: 60 RF: 0 doxycycline hyclate 100 mg Tablet 100 mg PO Q12H Qty: 14 RF: 0 atenolol 100 mg Tablet 100 mg PO BID Qty: 30 RF: 0 Continued aspirin [Adult Low Dose Aspirin] 81 mg tablet,delayed release (DR/EC) 81 mg PO DAILY RF: 0 furosemide [Lasix] 20 mg tablet 20 mg PO DAILY RF: 0 glyburide 5 mg tablet 5 mg PO DAILY RF: 0 metformin 500 mg tablet 500 mg PO DAILY RF: 0 atenolol 25 mg tablet 100 mg PO BID RF: 0 Diet: advance to usual diet Activity on Discharge: As tolerated Stand Alone Forms: Patient Portal Discharge page Care Plan Goals: complete course of doxycycline; continue amiodarone as ordered. You could follow-up with shell trim operator as outpatient Health Concerns: leg dressings as per wound care at facility Plan of Treatment: maintain highest level function Assessment: as per DC summary
[2021-10-12 14:09] LABS: Influenza A PCR NEGATIVE (Negative); Influenza B PCR NEGATIVE (Negative); Resp Syncy Virus RNA Qual PCR NEGATIVE (Negative); SARS COV2 PCR INHOUSE NEGATIVE (Negative)
--- NOTE | 2021-10-12 14:38 | MHC.CM.PN ---
Patient has been medically cleared for dc to STR/SNF today. Patient will dc to [facility] today, via [facility] today at 5PM. CM met with Patient at bedside and at her request, spoke with Daughter/HCP/Debbie at [phone] who is aware of and very pleased with the dc plan.IMM addressed with Debbie and original will be mailed certified letter to her and a copy has been placed on the chart.
[2021-10-12 15:08] VITALS: BP 151/95; PULSE 63; RESP 18; TEMP 36.6; O2SAT 95
[2021-10-12 16:13] LABS: Glucose, Whole Blood 82 mg/dL (60-115)
--- NOTE | 2021-10-12 16:22 | PC.NURSE ---
discharge held until an IV access is established for therapeutic phlebotomy.
--- NOTE | 2021-10-12 16:24 | MHC.CM.PN ---
scheduled dc for today has been cancelled.CM will follow.
[2021-10-12 20:00] VITALS: BP 157/85; PULSE 69; RESP 18; TEMP 36.6; O2SAT 96
[2021-10-12 20:18] LABS: Glucose, Whole Blood 74 mg/dL (60-115)
[2021-10-12 23:59] VITALS: BP 128/81; PULSE 76; RESP 18; TEMP 36.4; O2SAT 94
[2021-10-13 03:41] VITALS: BP 127/71; RESP 18; TEMP 36.4; O2SAT 93
[2021-10-13 05:17] LABS: Erythropoietin (EPO) 10.4 mIU/mL (2.6-18.5)
[2021-10-13 05:49] LABS: MANUAL DIFF FLAG NO
[2021-10-13 06:00] VITALS: BMI 38.5
[2021-10-13 06:09] LABS: Alanine Aminotransferase 24 U/L (0-31); Albumin Level 2.9 g/dL (3.5-5.0); Alkaline Phosphatase 66 U/L (39-117); Anion Gap 12 (12-20); Aspartate Amino Transferase 30 U/L (5-31); Bilirubin Total 1.8 mg/dL (0.0-1.0); Blood Urea Nitrogen 25 mg/dL (9-16); Carbon Dioxide 25 mmol/L (22-29); Chloride 110 mmol/L (96-108); Creatinine Clr Calc Pharmacy 54.7; Estimated Glomerular Filt Rate 55; Glucose Fasting 60 mg/dL (60-99); Potassium 4.7 mmol/L (3.3-5.1); Sodium 142 mmol/L (135-145); Total Protein 5.3 g/dL (6.5-8.0)
[2021-10-13 06:18] LABS: Basophils Percent Auto 0.1 % (0-2); Eosinophils Absolute Auto 0.1 X10*3/uL (0.0-0.4); Eosinophils Percent Auto 0.6 % (0-4); Hematocrit 54.8 % (37.0-47.0); Hemoglobin 18.1 g/dl (12.0-16.0); Imm Gran Abs Auto 0.04 X10*3/uL (0.00-0.03); Imm Gran Pct Auto 0.5 % (0.0-0.4); Lymphocytes Absolute Auto 0.9 X10*3/uL (1.2-4.9); Lymphocytes Percent Auto 11.4 % (20-40); Mean Corpuscular Volume 108.9 fL (80.0-98.0); Mean Platelet Volume 11.8 fL (9.4-12.3); Monocytes Absolute Auto 0.7 X10*3/uL (0.1-1.2); Monocytes Percent Auto 9.2 % (2-11); Neutrophils Absolute Auto 6.2 x10*3/uL (2.0-8.3); Neutrophils Percent Auto 78.2 % (45-73); Platelet Count 104 X10*3/uL (160-400); Red Blood Count 5.03 X10*6/uL (4.20-5.50); Red Cell Distribution Width 13.2 % (11.0-16.0); White Blood Count 7.9 X10*3/uL (4.8-10.8)
[2021-10-13] MEDS: Dextrose 50 % 25 GM/50 ML SYRINGE IVPUSH (06:33)
--- NOTE | 2021-10-13 07:11 | PC.NURSE ---
FBS WAS 60.PT GIVEN 1 AMP D50 IV.REPEAT BLOOD SUGAR WAS 132.
[2021-10-13 07:16] VITALS: BP 141/84; PULSE 79; RESP 18; TEMP 36.5; O2SAT 94
[2021-10-13 07:36] LABS: Glucose, Whole Blood 132 mg/dL (60-115)
[2021-10-13] MEDS: Midodrine HCl 5 MG TABLET PO (08:47)
[2021-10-13] MEDS: Sertraline HCL 25 MG TABLET 12.5 MG PO (08:47)
[2021-10-13] MEDS: Amiodarone HCL 200 MG TABLET PO (08:47)
[2021-10-13] MEDS: Aspirin Enteric Coated 81 MG TABLET.DR PO (08:48)
[2021-10-13] MEDS: glyBURIDE 5 MG TABLET PO (08:48)
[2021-10-13] MEDS: 0.9 % Sodium Chloride Flush 3 ML SYRINGE IVFLUSH (08:48)
[2021-10-13] MEDS: atenoloL 100 MG TABLET PO (08:48)
[2021-10-13] MEDS: Digoxin 0.125 MG TABLET PO (08:48)
--- NOTE | 2021-10-13 11:10 | PM.DS ---
DS: Providers Provider Date of Service: 10/13/21 Date of admission: 10/01/21 22:31 Primary care physician: Santy Muse MD Consults: 10/01/21 22:31 Consult to Cardiology Routine Consulting Provider: Fabrice Hughes Reason for consultation: afib RVR/ CHF 10/02/21 01:20 Consult to Infectious Diseases Routine Consulting Provider: Lisa Huggins Reason for consultation: cellulitis 10/02/21 12:03 Consult to Critical Care Routine Consulting Provider: Vargas Mcallister Reason for consultation: Septic shock Has provider been notified: No 10/11/21 11:45 Consult to Hematology / Oncology Routine Consulting Provider: Vanna Weeks Reason for consultation: polycytheia Has provider been notified: No DS: Diagnosis Discharge Diagnosis (1) Polycythemia: Status: Acute (2) Bilateral lower leg cellulitis: Status: Acute (3) Chronic atrial fibrillation: Status: Acute (4) HTN (hypertension): Status: Acute (5) Diabetes mellitus: Status: Acute DS: Summary Hospital Course Hospital Course: 81-year-old female with a past medical history of hypertension, diabetes, diastolic CHF, chronic AFib-not on anticoagulation, chronic lymphedema; presented to the hospital today with a chief complaint of bilateral leg swelling and pain.?Patient reports that she has has been noticing increased pain and swelling in her legs for the past few weeks; also complains of shortness of breath and dyspnea on exertion.? Denies any cough or fevers.? ER course Reevaluation #1: Patient with atrial fibrillation initial blood pressure reading was 77/60 repeat blood pressure reading was 10/23/2074 low blood pressure reading is likely from atrial fibrillation tachycardia is not from sepsis, patient is afebrile with atrial fibrillation with hyperglycemia and hypoperfusion will give IV fluid cautiously IV Cardizem for tachycardia in lower doses start IV Rocephin for cellulitis lower extremity wait for the labs, check POC Time: 13:58 Reevaluation #2: Lab workup showed blood sugar of 646 will give subQ Humalog according to patient was not compliant to her diet during? Olga Lidia time takes only metformin will give Humalog lab also shows achy IV creatinine increased to 1.79 with potassium of 5.5 bicarb of 15 and anion gap of 19.? Will give 2 L of IV fluid continue Humalog subQ was given Cardizem IV Time: 14:30 Reevaluation #3: Patient's heart rate is less than 100 AFib blood pressure improved to 107/90 patient is more alert and awake received 3 doses of Humalog and Lantus was given, lactic acid slightly elevated 2.8 multifactorial secondary to PARKER along with patient is on metformin also has cellulitis of lower extremity will add vancomycin to cover MRSA also will get venous Doppler to rule out DVT Hospital course patient started on Cardizem drip and transfer to telemetry. Venous Doppler negative. Seen by Cardiology, who DC Cardizem in favor of amiodarone. Ventricular response rate responded well to therapies. Patient was treated by vancomycin and seen by infectious disease who recommended switching to a course of oral doxycycline (3 more days at discharge). legs remain edematous but not cellulitic. Patient was noted to be polycythemic with macrocytosis, hemoglobin now 18.1. She was seen by Oncology who recommended a therapeutic phlebotomy. attempt on 10/12/2021 was unsuccessful. She will need to follow up with Dr. Chavez as an outpatient in the office. Patient was extremely anxious and was started on a small dose of sertraline; this can be titrated by receiving physician as indicated. her estimated stay would be less than 30 days Time Spent with Patient Time attestation: Total time spent providing and/or coordinating discharge services: Discharge coordination time: Greater than 30 minutes Quality: Stroke Does the patient have a stroke diagnosis?: No Physical Exam Vital Signs: Vital Signs: Last Vital Signs Temp 97.7 F 10/13/21 07:16 Pulse 79 10/13/21 07:16 Resp 18 10/13/21 07:16 BP 141/84 H 10/13/21 07:16 Pulse Ox 94 10/13/21 07:16 Oxygen Flow Rate 4 10/01/21 13:30 BMI result Body Mass Index 38.5 Const Other:??anxious; no acute distress Resp Other:??clear to auscultation bilaterally no rales rhonchi wheezes Cardio Other:??no S4; positive S1-S2; no S3 murmurs rubs or gallops GI Other:??soft nontender nondistended with normoactive bowel sounds.? No rebound or guarding Extrem Other:??bilateral edema with improved erythema DS: Data Data Completed and Pending Labs on day of discharge: Laboratory Results - last 24 hr 10/12/21 10/12/21 10/12/21 04:27 11:21 13:20 WBC RBC Hgb Hct MCV MCH MCHC RDW Plt Count MPV Immature Gran % (Auto) Neut % (Auto) Lymph % (Auto) [place] % (Auto) Eos % (Auto) Baso % (Auto) Lymph # (Auto) [place] # (Auto) Eos # (Auto) Baso # (Auto) Abs Immat Gran (auto) Absolute Neuts (auto) Absolute Nucleated RBC Nucleated RBC % (auto) Sodium Potassium Chloride Carbon Dioxide Anion Gap BUN Creatinine Estim Creat Clear Calc Estimated GFR POC Glucose 143 H Fasting Glucose Calcium Erythropoietin 10.4 Total Bilirubin AST ALT Alkaline Phosphatase Total Protein Albumin Influenza Type A (PCR) NEGATIVE Influenza Type B (PCR) NEGATIVE RSV RNA Qual (PCR) NEGATIVE SARS-CoV-2 RNA (RT-PCR) NEGATIVE Pre Ther Phlebot Hgb Pre Ther Phlebot Hct Therapeutic Phlebotomy 10/12/21 10/12/21 10/12/21 15:11 16:00 19:01 WBC RBC Hgb Hct MCV MCH MCHC RDW Plt Count MPV Immature Gran % (Auto) Neut % (Auto) Lymph % (Auto) [place] % (Auto) Eos % (Auto) Baso % (Auto) Lymph # (Auto) [place] # (Auto) Eos # (Auto) Baso # (Auto) Abs Immat Gran (auto) Absolute Neuts (auto) Absolute Nucleated RBC Nucleated RBC % (auto) Sodium Potassium Chloride Carbon Dioxide Anion Gap BUN Creatinine Estim Creat Clear Calc Estimated GFR POC Glucose 82 74 Fasting Glucose Calcium Erythropoietin Total Bilirubin AST ALT Alkaline Phosphatase Total Protein Albumin Influenza Type A (PCR) Influenza Type B (PCR) RSV RNA Qual (PCR) SARS-CoV-2 RNA (RT-PCR) Pre Ther Phlebot Hgb TNP Pre Ther Phlebot Hct TNP Therapeutic Phlebotomy TNP 10/13/21 10/13/21 10/13/21 05:15 05:15 07:12 WBC 7.9 RBC 5.03 Hgb 18.1 H Hct 54.8 H MCV 108.9 H MCH 36.0 H MCHC 33.0 RDW 13.2 Plt Count 104 L MPV 11.8 Immature Gran % (Auto) 0.5 H Neut % (Auto) 78.2 H Lymph % (Auto) 11.4 L [place] % (Auto) 9.2 Eos % (Auto) 0.6 Baso % (Auto) 0.1 Lymph # (Auto) 0.9 L [place] # (Auto) 0.7 Eos # (Auto) 0.1 Baso # (Auto) 0.0 Abs Immat Gran (auto) 0.04 H Absolute Neuts (auto) 6.2 Absolute Nucleated RBC 0.000 Nucleated RBC % (auto) 0.0 Sodium 142 Potassium 4.7 Chloride 110 H Carbon Dioxide 25 Anion Gap 12 BUN 25 H Creatinine 0.97 Estim Creat Clear Calc 54.7 Estimated GFR 55 POC Glucose 132 H Fasting Glucose 60 Calcium 9.0 Erythropoietin Total Bilirubin 1.8 H AST 30 ALT 24 Alkaline Phosphatase 66 Total Protein 5.3 L Albumin 2.9 L Influenza Type A (PCR) Influenza Type B (PCR) RSV RNA Qual (PCR) SARS-CoV-2 RNA (RT-PCR) Pre Ther Phlebot Hgb Pre Ther Phlebot Hct Therapeutic Phlebotomy Discharge Plan Discharge Patient Disposition: [facility] Discharge Diagnosis: Cellulitis Referrals: [facility] [Outside] - 1 Week Vanna Weeks MD [Physician] - 1 Week Physician,Unknown J [Physician] - 1 Week Discharge Medications: New amiodarone 200 mg Tablet 200 mg PO BID Qty: 60 RF: 0 atenolol 100 mg Tablet 100 mg PO BID Qty: 30 RF: 0 midodrine 5 mg Tablet 5 mg PO BID Qty: 60 RF: 0 digoxin 125 mcg (0.125 mg) Tablet 125 mcg PO DAILY Qty: 30 RF: 0 doxycycline hyclate 100 mg Tablet 100 mg PO Q12H Qty: 14 RF: 0 doxycycline hyclate 100 mg Tablet 100 mg PO Q12H Qty: 6 RF: 0 Continued aspirin [Adult Low Dose Aspirin] 81 mg tablet,delayed release (DR/EC) 81 mg PO DAILY RF: 0 furosemide [Lasix] 20 mg tablet 20 mg PO DAILY RF: 0 glyburide 5 mg tablet 5 mg PO DAILY RF: 0 metformin 500 mg tablet 500 mg PO DAILY RF: 0 atenolol 25 mg tablet 100 mg PO BID RF: 0 Discharge Orders: Discharge Order (Routine); Ordered 10/12/21 Ordered By: Sanket Tillman Diet: advance to usual diet Activity on Discharge: As tolerated Stand Alone Forms: Patient Portal Discharge page Care Plan Goals: complete course of doxycycline; continue amiodarone as ordered, decrease to 200mg daily on nov 05, 2021. You could follow-up with roll filler as outpatient Health Concerns: leg dressings as per wound care at facility Plan of Treatment: maintain highest level function Assessment: as per DC summary
[2021-10-13 11:36] LABS: Glucose, Whole Blood 132 mg/dL (60-115)
--- NOTE | 2021-10-13 11:41 | MHC.CM.PN ---
Patient has been medically cleared for dc to STR/SNF today. Patient will dc to [facility] today at 4:30 PM.IMM addressed yesterday.
--- NOTE | 2021-10-13 11:51 | MHC.CM.PN ---
CM has informed Daughter/HCP/Debbie via messages left at both numbers- [phone] and [phone], of the final dc details.
[2021-10-13 12:00] VITALS: BP 155/76; PULSE 69; RESP 18; TEMP 36.1; O2SAT 92
[2021-10-13 15:35] VITALS: BP 149/66; PULSE 64; RESP 18; TEMP 36.6; O2SAT 94
[2021-10-13 16:15] LABS: Glucose, Whole Blood 73 mg/dL (60-115)
== END 2021-10-13 17:15 | disposition skilled nursing facility (03) | DRG 871 ==
LOC: HO.ED 21:44 → HO.EDOVER 22:55 → HO.IMC 10-02 07:43 → HO.EDOVER 10-02 11:21 → HO.ICU 10-02 22:06 → HO.IMC 10-03 05:12 → HO.S3 10-05 13:22
PROVIDERS: Anesthesiology; Hospitalist; Internal Medicine; Physician Assistant; Admitting Provider Hospitalist; Emergency Provider Internal Medicine; PCP Internal Medicine Endocrinology, Diabetes & Metabolism; Visit Provider Internal Medicine
DX: A41.9 Sepsis, unspecified organism (principal); I50.33 Acute on chronic diastolic (congestive) heart failure; R65.21 Severe sepsis with septic shock; N17.9 Acute kidney failure, unspecified; L03.116 Cellulitis of left lower limb; L03.115 Cellulitis of right lower limb; I87.313 Chronic venous hypertension (idiopathic) with ulcer of bilateral lower extremity; L97.929 Non-pressure chronic ulcer of unspecified part of left lower leg with unspecified severity; L97.919 Non-pressure chronic ulcer of unspecified part of right lower leg with unspecified severity; I48.91 Unspecified atrial fibrillation; I95.9 Hypotension, unspecified; E11.65 Type 2 diabetes mellitus with hyperglycemia; R13.10 Dysphagia, unspecified; D75.1 Secondary polycythemia; I27.29 Other secondary pulmonary hypertension; Z20.822 Contact with and (suspected) exposure to COVID-19; Z91.041 Radiographic dye allergy status; Z79.82 Long term (current) use of aspirin; Z79.84 Long term (current) use of oral hypoglycemic drugs; Z79.899 Other long term (current) drug therapy; Z66 Do not resuscitate
CPT/HCPCS: 0241U; 36415; 71045; 76700; 76882; 78580; 80048; 80053; 80202; 81001; 82009; 82607; 82668; 82746; 82947; 83605; 83615; 83735; 83880; 84100; 84145; 84484; 85014; 85018; 85025; 85027; 85045; 85610; 85730; 87040; 87071; 87077; 87186; 87205; 87635; 92610; 93005; 93308; 93970; 97110; 97162; 97166; 97530; 97535; 99195; 99285; A9540; J0282; J0692; J0696; J1650; J3010; J3370